=== PATIENT | male | born 1950 | race Caucasian/White ===

== ENCOUNTER 2021-08-08 10:30 | Inpatient (IN) | payer MEDICARE ==
[~2021-08-08] VITALS: Ht 167.6 cm; Wt 59.0 kg
[2021-08-08] MEDS ORDERED: VITA1TAB19 PO (13:52)
[2021-08-08] MEDS ORDERED: MULT-121 PO (13:52)
[2021-08-08] MEDS ORDERED: CITA40TA6 PO (13:52)
[2021-08-08] MEDS ORDERED: MEMA10TA PO (13:52)
[2021-08-08] MEDS ORDERED: MAGNESIUM HYDROXIDE 2,400 MG/30 ML ORAL.SUSP. PO PRN (16:30)
[2021-08-08] MEDS ORDERED: MAG HYDROX/AL HYDROX/SIMETH 30 ML ORAL.SUSP PO PRN (16:30)
[2021-08-08] MEDS ORDERED: ACETAMINOPHEN 325 MG TABLET PO PRN (16:30)
[2021-08-08] MEDS ORDERED: METHYL SALICYLATE/MENTHOL TOPICAL OINTMENT 57GM TUBE. TP PRN (16:30)
--- NOTE | 2021-08-08 16:38 | NUR ---
Admission Note with Justification for Admission to [facility] Patient admitted to [facility] for protective oversight for emergency stabilization of acute psychiatric crisis. Pt admitted from: Home Mode of arrival: POV Accompanied By: Family Precipitating behaviors that initiated intake and admission: Patient admitted from home for reportedly thinking his family are strangers, threatening family with a diamond setter knife and gun to get them to leave, being paranoid, not bathing, and being delusional. Description of failure of out patient attempts at stabilization in previous setting list behavior and medication trials: Patient seen by psychiatry and neurology on outpatient basis with medication changes and home health. Behaviors and assessment findings upon admission: Patient mildly anxious, cooperative, and pleasantly confused. He is very hard of hearing without hearing aids which he does not have. Patient unable to recall his year and is disoriented to place and day/date. He denies pain or shortness of breath. Plan: Admit for protective oversight for adjustment and stabilization of medications, behaviors and mood. Intense treatment regimen including groups, medication adjustments, therapy, consistent regimen for ADL's, self care, and sleep hygiene. Daily monitoring by Inpatient staff, Psychiatry, and Medical Physician.
[2021-08-08 16:41] VITALS: BP 131/74
[2021-08-08 17:44] LABS: BASO # 0.1 x10^3/uL (0.0-0.2); BASO % 1 % (0-3); EOS # 0.2 x10^3/uL (0.0-0.7); EOS % 2 % (0-3); HEMATOCRIT 40.9 % (39.0-53.0); HEMOGLOBIN 13.7 g/dL (13.0-17.5); LYMPH # 1.8 x10^3/uL (1.0-4.8); LYMPH % 18 % (24-48); MEAN CORPUSCULAR HEMOGLOBIN 31 pg (25-35); MEAN CORPUSCULAR HGB CONC 34 g/dL (31-37); MEAN CORPUSCULAR VOLUME 92 fL (79-100); MONO # 0.8 x10^3/uL (0.0-1.1); MONO % 8 % (0-9); NEUT # 7.1 x10^3uL (1.8-7.7); NEUT % 72 % (31-73); PLATELET COUNT 274 x10^3/uL (140-400); RED BLOOD COUNT 4.43 x10^6/uL (4.30-5.70); RED CELL DISTRIBUTION WIDTH 13.3 % (11.5-14.5); WHITE BLOOD COUNT 9.9 x10^3/uL (4.0-11.0)
[2021-08-08 17:55] LABS: ALBUMIN 3.8 g/dL (3.4-5.0); ALBUMIN/GLOBULIN RATIO 1.2 (1.0-1.7); CALCIUM 8.5 mg/dL (8.5-10.1); CREATININE 1.1 mg/dL (0.7-1.3); POTASSIUM 4.2 mmol/L (3.5-5.1); TOTAL BILIRUBIN 0.3 mg/dL (0.2-1.0); TOTAL PROTEIN 6.9 g/dL (6.4-8.2)
[2021-08-08] MEDS: MEMANTINE 10 MG TABLET. PO SCH (21:02)
--- NOTE | 2021-08-09 01:08 | NUR ---
Nursing Note The patient was located in his room and hallway for his assessment and medication pass. The patient was compliant with medications and took them whole. The patient was alert to name only. The patient was pleasant but disorganized during interactions. The patient required multiple redirections by staff due to entering other rooms than his own while wandering. The patient is currently sleeping in his room.
[2021-08-09 05:33] VITALS: BP 150/75
[2021-08-09] MEDS ORDERED: FLU VACC QUAD 21-22 (6MOS+) PF 0.5 ML SYRINGE. VAX IM ONE (08:00)
--- NOTE | 2021-08-09 08:30 | NUR ---
ACTIVITY THERAPY ASSESSMENT completed based on notes,observation and interview. Pt remained calm and pleasant during the entire assessment. Pt said that he enjoys eating good food, fishing, hunting, and reads lots of things. Pt was able to say his birthday but unable to recall the year he was born. Pt was not able to answer any other orientation questions. Pt reports that he is and has three or four children. Pt said that he is in good contact with them. Pt does not report any pain and can ambulate independently. Pt reports that he came from home prior to admission. Pt is mostly pleasantly confused and cooperative with staff. Pt wanders in the hallway but remains calm. Initial goal aimed to increase socialization and engagement. Pt will participate in at least three Activity Therapy sessions per week.
[2021-08-09] MEDS: VITAMIN B COMPLEX CAPSULE. PO SCH (08:42)
[2021-08-09] MEDS: CITALOPRAM 20 MG TABLET. PO SCH (08:42)
[2021-08-09] MEDS: MULTIVITAMIN with MINERAL TABLET. PO SCH (08:42)
[2021-08-09] MEDS: MEMANTINE 10 MG TABLET. PO SCH ×2 (08:43→21:38)
[2021-08-09] MEDS ORDERED: IOHEXOL 350 MG/ML 100 ML VIAL. ONE (10:32)
[2021-08-09] MEDS: QUEtiapine 25 MG TABLET. PO PRN ×2 (10:44→16:38)
--- NOTE | 2021-08-09 10:45 | NUR ---
Patient was restless and wandering this morning. After meeting another patient, he became more restless, agitated, and exit seeking. He is door checking with the other patient, both are yelling repeatedly to let them out and open the door. PRN medication provided per eMAR, will continue to monitor and report to MD.
--- NOTE | 2021-08-09 12:00 | NUR ---
Initial treatment team: Pt was admitted last night for threatening his family, paranoia and delusional thinking. Pt is eating 75% of his meals and slept 6.25 hours. Since admission, pt has been mildly anxious, cooperative, exit-seeking and confused. Pt is alert and oriented to himself adn has noted to have tremors in both upper and lower extremities; neurology will be consulted for this. Pt is difficult to redirect and has declined any offers for activities. Pt received his flu shot this morning and will receive PRN orders for Seroquel 25mg po PRN q 6 hours. It is noted that the family will need assistance in finding placement.
--- NOTE | 2021-08-09 12:29 | NUR ---
WEEKLY ACTIVITY THERAPY NOTE Date of Admission:08/08/21 Date of AT Assessment: TBD Precipitating behaviors that initiated intake and admission:Patient admitted from home for reportedly thinking his family are strangers, threatening family with a asphalt mixing machine operator knife and gun to get them to leave, being paranoid, not bathing, and being delusional. Goal aimed: TBD Initial Goal: TBD Weekly progress towards goal: NA Group participation level: NA Weekly highlights: arrived on [facility] Behaviors observed: Plan: meet/assess pt Beneficial adaptations: TBD
[2021-08-09 13:18] LABS: BACTERIA,URINE 0 /HPF (0-FEW); BILIRUBIN,URINE NEG (NEG); CLARITY,URINE CLEAR; COLOR,URINE YELLOW; GLUCOSE,URINE NEG (NEG); NITRITE,URINE NEG (NEG); RBC,URINE 0 /HPF (0-2); WBC,URINE 0 /HPF (0-4)
--- NOTE | 2021-08-09 15:09 | NUR ---
Lab called and stated patient is positive for SARS-CoV-2. Patient placed in isolation hallway due to mental condition and inability to self-isolate in his room. MD notified, orders for seclusion related to medical condition obtained. Nursing electrical assembly supervisor contacted; patient will be isolated while awaiting the results of two follow up tests. If either test is positive, patient will be transferred to [address] [place] [address]. If both tests are negative, patient will be out of isolation. Patient informed of plan of care and is in agreement. Will continue to monitor and report to oncoming shift.
[2021-08-09 15:50] VITALS: BP 126/74
--- NOTE | 2021-08-09 16:38 | NUR ---
Patient is restless, wandering, exit seeking, and door checking. He is not responding to verbal re-direction or reminders that he is in isolation. PRN medication provided per eMAR, patient continues on isolation precautions. Will continue to monitor.
[2021-08-09 17:46] LABS: THYROID STIM HORMONE (TSH) 2.52 uIU/mL (0.358-3.740)
[2021-08-09] MEDS ORDERED: QUEtiapine 50 MG TABLET. PO ONE (22:00)
[2021-08-09 22:12] LABS: THYROXINE 7.4 ug/dL (4.5-12.0)
--- NOTE | 2021-08-09 23:12 | NUR ---
Nursing Not The patient was located in the quiet latif for medical seclusion due to positive covid 19 test. The patient has been restless and at times difficult to redirect. The patient was compliant with his medication and took it whole. Dr. Chen was called related to restlessness and a x1 order for 50mg seroquel was given. The patient is currently sleeping in the quiet room.
--- NOTE | 2021-08-09 23:16 | CONS ---
DATE OF CONSULTATION: 08/09/2021 ATTENDING PHYSICIAN: Dr. Zhang and Dr. Reeves. We are asked to see the patient for medical consultation. HISTORY OF PRESENT ILLNESS: The patient is a 71-year-old gentleman who lives in [place], [place]. His primary care provider is Ricardo Link, a nurse practitioner, who used to work with me 15 years ago in [place]. He is demented. He has agitation. He was sent here because he was threatening his family, got a supervisor rides knife. He also got a gun threatening to get out. He is very paranoid. I could not get much history from him, much of the history is obtained from the chart. He has a longstanding history of Alzheimer's dementia, anxiety, enlarged prostate and degenerative arthritis. ALLERGIES: He has no known drug allergies. SCHEDULED MEDICATIONS: Includes citalopram, Namenda, multivitamin, and vitamin B. SOCIAL HISTORY: Unclear about smoking or drinking history. FAMILY HISTORY: Unobtainable. REVIEW OF SYSTEMS: Unobtainable due to the patient's confusion. PHYSICAL EXAMINATION: GENERAL: When I saw him, this is a pleasant gentleman who was very confused. He was not agitated. He was rather cooperative. VITAL SIGNS: Initial vital signs showed a blood pressure of 131/74, pulse was 84 and regular. He was afebrile, oxygen saturation 96% on room air. HEENT: Head is without trauma. Pupils are reactive. Sclerae are nonicteric. The oropharynx is clear. NECK: Supple, no bruits. LUNGS: Clear. CARDIOVASCULAR: Showed regular heart tones. ABDOMEN: Soft. EXTREMITIES: Without edema. NEUROLOGIC FINDINGS: Focally intact. Speech was fluent. He had no deficits. His memory is quite poor and he could not answer simple questions. PERTINENT LABORATORY STUDIES: Admission hemoglobin was 13.7 g/dL with a white count of 9900. Electrolytes all within normal range. Nonfasting blood sugar 114. Transaminases are normal. ASSESSMENT: 1. This 71-year-old gentleman has profound Alzheimer's dementia with behavioral issues of agitation and paranoia. 2. History of enlarged prostate. 3. Underlying anxiety. RECOMMENDATIONS: 1. I have reviewed his medication. He is stable from a medical standpoint. 2. I would recommend we continue his limited medication as scheduled. 3. Family requested a DNR status while in the facility. I took the liberty of signing that and placed it on the chart. Thank you again for asking me to see this patient for medical consultation. We are happy to follow along. SANDRITA DR: Damaris TID: [id number] CC: Dr. Reeves
[2021-08-10 00:06] LABS: HEMOGLOBIN A1C 5.5 % (4.8-5.6)
[2021-08-10] MEDS: QUEtiapine 25 MG TABLET. PO PRN ×2 (01:41→20:15)
--- NOTE | 2021-08-10 02:24 | PSYEV ---
DATE OF SERVICE: 08/09/2021 PSYCHIATRIC EVALUATION REASON FOR ADMISSION: This 71-year-old male was admitted from home at the request of the family because he has been threatening the family with a information systems auditor knife and gun to get them to leave, also paranoid, refusing ADLs, not bathing. The patient also not trusting any of the family members and thinks they are all strangers. CHIEF COMPLAINT: "I don't know where I am. I don't understand. I am looking for my family." HISTORY OF PRESENT ILLNESS: The patient since admission was withdrawn, pacing, increased confusion. The patient also has significant hearing loss. The patient is having difficulty with comprehension. The patient also has significant cognitive deficits. The patient apparently has a potential to act violently because of her delusional thinking. The patient is able to walk, not having any major medical issues at this point. The patient did not have any falls. The patient has been diagnosed with dementia and he was accompanied by daughter and ex-, Lincoln Shukla. Apparently she is the garage door technician for him. The patient has been having problems with memory, it is getting worse gradually, also increased confusion. The patient also is exhibiting bizarre behavior, lately physically aggressive towards his ex-, also angry, significant mood swings. The patient is also physical towards the family members, trying to grab his caregiver's arm and pushed her. The patient has been tried on outpatient treatment, was seen by the psychiatrist, also neurologist and has been medicated, but no improvement. The patient also wandered off twice. They have to call 911 and apparently lost in the morgan. PAST MEDICAL HISTORY: Enlarged prostate, hernia repair, knee surgery. The patient is tested negative for COVID-19 on admission and the repeat on arrival to the unit ____ positive. Currently, he is on isolation and the test to be repeated. CURRENT MEDICATIONS: Currently on multivitamins, vitamin B complex, citalopram 40 mg daily, Namenda 10 mg twice a day and Tylenol p.r.n. The patient was started on Seroquel 25 mg q. 6 hours p.r.n. LABORATORY DATA: The patient's lab reviewed, which were all within normal range except for glucose level of 114. The patient's urinalysis was within normal limits. PSYCHOSOCIAL HISTORY: The patient was living at home. Apparently, his ex-, his caregiver and her daughter also supportive of his treatment. No history of alcohol or substance abuse and no history of any physical, emotional, or sexual abuse in the past. MENTAL STATUS EXAMINATION: The patient appeared to be of his stated age, casually dressed, thin build, able to make eye contact. He was also confused, somewhat bewildered. He did not know where he is and what is going to happen. The patient is also hard of hearing. Speech clear, monotone, decreased rate and rhythm. He was able to read a full paragraph without any difficulty with the speech. His affect and mood showed he is anxious, tense, worried, also suspicious and paranoid. The patient is not comprehending very well. The patient is also very confused. Recent episodes indicate that he is very delusional and paranoid and also threatening the family members not knowing they are the family members, thought they were strangers trying to make them leave with a knife and a gun. The patient denies feeling depressed. No suicidal or homicidal thoughts. The patient is having difficulty orienting himself to surroundings. His memory is not testable at this time. The patient's judgment is impaired. Insight limited. ADMITTING DIAGNOSES: AXIS I: 1. Major neurocognitive disorder, most likely Alzheimer versus vascular with the delusions and behavior problems. 2. Generalized anxiety disorder. 3. Impulse control disorder, unspecified. AXIS II: None. AXIS III: See the list above. STRENGTH: In good health. His gait is normal. No fall risk, able to communicate. WEAKNESSES: The patient is currently confused, having significant memory problems and also underlying psychosis. INITIAL TREATMENT PLAN: The patient will be involved in the program including individual therapy, group therapy, activity therapy, waiting for the COVID test and if positive, he will be transferred to the medical floor. The patient's medications to be evaluated. The patient will participate in the treatment once he is out of the isolation. ESTIMATED LENGTH OF STAY: Seven to ten days. CLAIRE OLIVER: Jigar TID: [id number]
[2021-08-10 05:53] VITALS: BP_SYST 69
[2021-08-10] MEDS: CITALOPRAM 20 MG TABLET. PO SCH (08:40)
[2021-08-10] MEDS: VITAMIN B COMPLEX CAPSULE. PO SCH (08:40)
[2021-08-10] MEDS: MULTIVITAMIN with MINERAL TABLET. PO SCH (08:40)
[2021-08-10] MEDS: MEMANTINE 10 MG TABLET. PO SCH ×2 (08:41→20:15)
--- NOTE | 2021-08-10 09:16 | NUR ---
Pt sitting in hallway eating breakfast. He is pleasant and cooperative with meds and assessment. He was able to state name only.
--- NOTE | 2021-08-10 14:11 | PN ---
DATE: 08/10/2021 SUBJECTIVE: The patient was seen today, met with the staff, chart reviewed. Also, covering for Dr. Zhang. The patient's behavior continues to worsen. He is increasingly confused, withdrawn, having difficulty orienting to surroundings, exit-seeking behaviors and also repeatedly yelling. The patient tested again negative, but still in isolation. OBSERVATION: GENERAL: Slept about only 1 hour last night. The patient's appetite decreased. LABORATORY DATA: The patient's lab reviewed. The patient's LDL 102, HDL 61. Iron 36, TIBC 302. Iron saturation 12. The patient's glucose level was 114. The patient's urinalysis was within normal limits. CURRENT MEDICATIONS: Seroquel 25 mg q. 6 hours p.r.n., citalopram 40 mg daily, Namenda 10 mg twice a day. The patient also received Seroquel 50 mg 1 dose as needed yesterday for behavior problems. The patient is on continued observation. Continue to evaluate and adjust the medication accordingly. ASSESSMENT: Major neurocognitive disorder, most likely Alzheimer's with behavioral disturbances. PLAN: Continue with the current treatment plan. LENGTH OF STAY: 7-[address]: Jigar TID: [id number]
[2021-08-10 15:43] VITALS: BP 114/63
--- NOTE | 2021-08-10 23:22 | NUR ---
Nursing Note The patient remains in the quiet latif for medication isolation. The patient has been restless pulling on doors and pacing the latif. The patient was given PRN Seroquel with HS medications. The patient was compliant with medications and took them whole. The patient is currently sleeping in the quiet latif.
[2021-08-11 05:50] VITALS: BP 149/78
[2021-08-11] MEDS: MEMANTINE 10 MG TABLET. PO SCH ×2 (08:48→20:36)
[2021-08-11] MEDS: MULTIVITAMIN with MINERAL TABLET. PO SCH (08:48)
[2021-08-11] MEDS: CITALOPRAM 20 MG TABLET. PO SCH (08:48)
[2021-08-11] MEDS: VITAMIN B COMPLEX CAPSULE. PO SCH (08:48)
[2021-08-11] MEDS: QUEtiapine 25 MG TABLET. PO PRN ×2 (15:03→20:36)
--- NOTE | 2021-08-11 15:08 | NUR ---
Patient is exit seeking, door checking, and hallucinating. He stated that he was tapping on the window because there are bees on the painting. PRN medication provided per eMAR, will continue to monitor and report to MD during rounds.
[2021-08-11 15:46] VITALS: BP 115/67
--- NOTE | 2021-08-11 20:56 | RAD ---
CT Head W/O Contrast: History: Reason: Increased confusion / Spl. Instructions: / History: Comparison: none Axial images were obtained without contrast. There is moderate diffuse atrophy. There is ventriculomegaly. There is encephalomalacia in the right temporal lobe. There is no mass effect, extraaxial fluid collections or gross bleed. Mild, patchy pe riventricular and subcortical white matter hypoattenuation is seen. There is no focal loss of briceno-w venkat matter distinction to suggest acute ischemia, i.e. stroke. Impression: 1. Moderate diffuse atrophy. 2. Ventriculomegaly is felt to be secondary to atrophy. 3. 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 4. No acute findings. End of impression PQRS Compliance Statement: One or more of the following individualized dose reduction techniques were utilized for this examinat ion: 1. Automated exposure control 2. Adjustment of the mA and/or kV according to patient size 3. Use of iterative reconstruction technique Electronically signed by: Sin Burns III, MD (08/11/2021 8:53 PM) [facility]
--- NOTE | 2021-08-11 21:25 | PN ---
DATE: 08/11/2021 SUBJECTIVE: The patient was seen today, met with the staff. Chart was reviewed and also covering for Dr. Zhang. The patient's behavior remains the same. He is confused, pacing constantly, considerable difficulty processing information. Also, some hearing loss. The patient is not able to give much information. The patient is exhibiting severe cognitive deficits, mostly for short-term and long-term memory. The patient also needing assistance with ADLs. The patient is able to ambulate. No recent falls. OBSERVATION: VITAL SIGNS: Temperature 97.5, blood pressure 149/28, pulse 71, respirations 16. GENERAL: Slept about 6 hours last night. LABORATORY DATA: The patient's lab reviewed. CURRENT MEDICATIONS: The patient's current medications include Seroquel 25 mg q. 6 hours p.r.n., citalopram 40 mg daily, Namenda 10 mg twice a day. The patient's COVID test was negative. The patient continues to have visual hallucinations. Complained of seeing bees on the windows. ASSESSMENT: Major neurocognitive disorder, most likely Alzheimer's with behavioral disturbances. PLAN: To continue with treatment. LENGTH OF STAY: Seven to ten [address]. CLA[address] DR: Jigar TID: [id number]
[2021-08-11] MEDS ORDERED: QUEtiapine 50 MG TABLET. PO ONE (22:30)
--- NOTE | 2021-08-11 23:24 | NUR ---
Pt located in hallway wandering unit. Pt A/O to self only and responds in word salad. Compliant with HS medications and PRN Seroquel. Pt continued to be restless, door checking, exit seeking. Dr. Reeves paged and received order for 50mg PRN Seroquel x1. Pt refused pill and spit it back at nurse. Medication crushed and syringed. Staff x3 assisted as pt became extremely agitated and combative. Pt currently in [place] continuing to bang on doors and rattle doorknobs. Will continue to monitor.
--- NOTE | 2021-08-11 23:27 | PN ---
DATE: 08/11/2021 SUBJECTIVE: The patient denies any new medical or neurological complaints. There is no history of head injuries or falls. He denies headaches. OBJECTIVE: GENERAL: Well-developed, well-nourished, male in no acute distress. VITAL SIGNS: Blood pressure 150/67, respiratory rate 18, pulse is 90, temperature 97.9, oxygen saturation 96% on room air. HEENT: Normocephalic, atraumatic. Otherwise unremarkable. NECK: Supple, negative for carotid bruit, lymphadenopathy or thyromegaly. LUNGS: Clear to A and P. CARDIOVASCULAR: Regular rate and rhythm, normal S1, S2. There is no S3, S4 or murmur. ABDOMEN: Soft. Bowel sounds positive. EXTREMITIES: Negative for cyanosis, clubbing or edema. NEUROLOGIC: Mental status: The patient is alert, but disoriented to time and place. Speech is fluent. There is no language dysfunction. Memory, judgment and abstracting thinking are poor. The patient denies hallucination or delusion. Cranial nerves are intact except for bilateral hearing loss. No focal motor or sensory deficit. Deep tendon reflexes were symmetric and hypoactive with absent Achilles responses. Gait: The patient walks without assistance. LABORATORY DATA: COVID-19 PCR is not detected and RPR is nonreactive. IMPRESSION: 1. Dementia, probably of Alzheimer type versus vascular. 2. Intermittent tremor, none present at this time. 3. Intermittent behavior disturbance and generalized anxiety disorders. RECOMMENDATIONS: Continue with current medical and psychiatric care. The patient is neurologically stable. TORRES DR: Ming TID: [id number]
--- NOTE | 2021-08-12 00:01 | CONS ---
DATE OF CONSULTATION: 08/09/2021 NEUROLOGY CONSULT REFERRING PHYSICIAN: Dr. Chen. REASON FOR CONSULTATION: Intermittent tremor of the upper extremities. HISTORY OF PRESENT ILLNESS: This is a 71-year-old right-handed male who was admitted on 08/08/2021 on account of aggressive behavior and paranoid. He refused adult daily living activities as taking a bath as he does not trust any family members. Neuro consult was requested because the patient was found to have intermittent tremor of the upper extremities. The patient appeared to have dementia consistent with his behavior on the floor. He has been withdrawing, pacing and being confused. Apparently, he has significant hearing loss and slowly progressive mental status changes. Occasionally, he becomes violent. According to his family, the patient has been more demanding and more confused in the last few months. According to the nursing staff, the patient was found to have intermittent tremor of the upper extremities. The patient denies any recent falls or head injuries. Due to his violent behavior at home and not taking care of himself, EMS was activated and transferred the patient to the Emergency Room for further evaluation. PAST MEDICAL HISTORY: Significant for enlarged prostate, recently the patient was tested positive for COVID-19 on admission. Other medical problems include depressions and dementia. PAST SURGICAL HISTORY: Positive for hernia repair, knee surgery. FAMILY HISTORY: Not obtainable. CURRENT MEDICATIONS: Include Seroquel 25 mg every 6 hours p.r.n., vitamin B complex, multivitamins, citalopram 40 mg daily, memantine 10 mg b.i.d. and Tylenol p.r.n. for pain. ALLERGIES: None known. SOCIAL HISTORY: The patient lives at home. There is no history of smoking, alcohol drinking or illicit drug use. REVIEW OF SYSTEMS: A 10-point review of system was performed as mentioned above in history of present illness, otherwise unremarkable. PHYSICAL EXAMINATION: GENERAL: Well-developed, well-nourished male in no acute distress. VITAL SIGNS: Blood pressure 126/74, respiratory rate 20, pulse is 88 and regular, temperature 97.7, oxygen saturation 97% on room air. HEENT: Normocephalic, atraumatic. Otherwise unremarkable. NECK: Supple, negative for carotid bruit, lymphadenopathy or thyromegaly. LUNGS: Clear to A and P. CARDIOVASCULAR: Regular rate and rhythm. Normal S1, S2. There is no S3, S4 or murmur. ABDOMEN: Soft. Bowel sounds positive. EXTREMITIES: Negative for cyanosis, clubbing or pedal edema. NEUROLOGIC: Mental status: The patient is alert to himself. He is disoriented to time and place. The speech is fluent. Memory, judgment and abstracting thinking are poor consistent with his diagnosis of dementia. Cranial Nerves: Visual morgan appeared to be intact. Pupils are equal and reactive. Extraocular movements are intact without nystagmus. There is no facial motor or sensory deficits. Hearing appeared to diminished bilaterally. The palate is elevated symmetrically. Sternocleidomastoid muscles are powerful bilaterally. The patient shrugs his shoulders symmetrically, protrudes his tongue in the midline without fasciculation or atrophy. Motor Exam: No focal muscle bulk wasting. The tone is normal. The strength is 4/5 throughout. Sensory examination revealed a normal pinprick and light touch senses throughout. Deep tendon reflexes were symmetric and hypoactive without pathology responses. Gait: The patient walked by himself without assistance. DIAGNOSTIC DATA: A head CT scan revealed a moderate diffuse atrophy with enlarged ventricle with right temporal lobe infarct; otherwise, no acute intracranial process. LABORATORY DATA: CBC revealed white blood cells of 9.9 thousand, hemoglobin 13.7, hematocrit 40.9, platelet count 274,000. Chemistry revealed a sodium 145, potassium 4.2, chloride 106, CO2 of 30, BUN 14, creatinine 1.1, glucose 114. A1c is normal at 5.5. Iron is low at 36. Liver enzymes are normal. Lipid profile revealed LDL at one point at 102 with high HDL at 61. Normal vitamin B12, but low vitamin D at 26.1 and normal thyroid profile. Urinalysis negative for urinary tract infections. Serology testing including COVID-19 PCR is pending. IMPRESSION: 1. Dementia, probably of Alzheimer type versus vascular type. 2. Intermittent tremor, not present at this time. 3. Generalized anxiety disorder, paranoid and behavior disturbances. RECOMMENDATIONS: We will continue with current medical and psychiatric care and continue with current medications. KATHY DR: Ming TID: [id number]
[2021-08-12 05:47] VITALS: BP 133/66
[2021-08-12] MEDS: VITAMIN B COMPLEX CAPSULE. PO SCH (07:39)
[2021-08-12] MEDS: MULTIVITAMIN with MINERAL TABLET. PO SCH (07:39)
[2021-08-12] MEDS: CITALOPRAM 20 MG TABLET. PO SCH (07:39)
[2021-08-12] MEDS: MEMANTINE 10 MG TABLET. PO SCH ×2 (07:39→19:37)
--- NOTE | 2021-08-12 15:49 | NUR ---
Joshua was active in the admit hallway today. He sat in the latif, paced at times, and performed door checking throughout many portions of the day. He is very strong and can shake the doors so hard it makes other doors vibrate when he is attempting to break them open. He is very [place] and requires most of each conversation to be repeated for him to hear and/or process it. He is confused to place and time but is able to share his name. He was unable to recall my name in less that 3 minutes. He has been pleasant on contact, cooperative with medications and assessments, and has no recognizable medical concerns. He is active in his own ADL care and eats 100% of his meals. The patient is unable to share his thoughts without drifting from the conversation. There were no recognizable behaviors that would indicate hallucinations. Patient is sleeping 6-8 hours each night.
[2021-08-12 15:59] VITALS: BP 125/63
[2021-08-12] MEDS: QUEtiapine 25 MG TABLET. PO PRN (19:37)
--- NOTE | 2021-08-12 21:32 | PN ---
DATE: 08/12/2021 SUBJECTIVE: The patient was seen today, met with the staff, chart reviewed. Also, covering for Dr. Zhang. Staff reports increased behavior problems, exit-seeking behaviors, combative during treatment, refusing medications, also restless. The patient is confused most of the time, significant problems with comprehension and reasoning, also exhibiting impulse control. The patient also showing some decreased psychomotor activity and blank facial expression, but no involuntary movements. The patient is also having visual hallucinations. OBSERVATION: VITAL SIGNS: Temperature 97.2, blood pressure 133/66, pulse 72, respirations 16, O2 sat 97%. GENERAL: Slept about 4 hours last night. The patient's appetite is fair. The patient is needing supervision because of his increased confusion and difficult to redirect at times. CURRENT MEDICATIONS: Seroquel 25 mg q. 6 hours p.r.n., citalopram 40 mg daily, Namenda 10 mg twice a day. ASSESSMENT: Major neurocognitive disorder, most likely Alzheimer's with behavior disturbances. PLAN: To continue with treatment. The patient will continue on the Seroquel p.r.n. Apparently, staff called last night with regard to his behavior getting more aggressive and physical towards the staff. LENGTH OF STAY: 7 to [address]: Jigar TID: [id number]
[2021-08-12] MEDS ORDERED: QUEtiapine 50 MG TABLET. PO ONE (22:30)
--- NOTE | 2021-08-12 23:30 | NUR ---
Pt highly restless on the unit, wandering and door checking. Pt very disorganized and responds in word salad. Compliant with HS medications. Later in the evening, pt continued to be restless shaking the door handles and door checking. Dr. Leandro becerra. 50mg Seroquel x1 administered without difficulty. Pt currently awake and wandering hallway. Will continue to monitor.
[2021-08-13 05:31] VITALS: BP 131/78
[2021-08-13] MEDS: VITAMIN B COMPLEX CAPSULE. PO SCH (08:35)
[2021-08-13] MEDS: MULTIVITAMIN with MINERAL TABLET. PO SCH (08:36)
[2021-08-13] MEDS: MEMANTINE 10 MG TABLET. PO SCH ×2 (08:36→19:54)
[2021-08-13] MEDS: CITALOPRAM 20 MG TABLET. PO SCH (08:36)
--- NOTE | 2021-08-13 12:25 | PN ---
DATE: 08/13/2021 SUBJECTIVE: The patient was seen today, met with the staff, chart reviewed. Also, covering for Dr. Zhang. Staff reports that he is medication compliant, confused, exit-seeking behaviors and also disorganized thinking, unable to hold conversation and also has hearing loss. OBSERVATION: VITAL SIGNS: Temperature 97.5, blood pressure 131/78, pulse 67, respirations 16, O2 sat 96%. GENERAL: Slept about 5 hours last night. The patient's appetite is fair. The patient is not having any physical complaints. ASSESSMENT: Major neurocognitive disorder, most likely Alzheimer's, with behavior disturbances. PLAN: To continue with treatment. The patient is also on Seroquel p.r.n. The patient will continue on citalopram 40 mg daily and Namenda 10 mg twice a day. Continue with the treatment. Continue to observe. Adjust the medication accordingly. LENGTH OF STAY: 7-[address]: Jigar TID: [id number]
[2021-08-13 15:39] VITALS: BP 113/67
--- NOTE | 2021-08-13 17:46 | NUR ---
Patient has been withdrawn to his room for the majority of this shift. After dinner he has been wandering, exit-seeking, and door checking. Will continue to monitor and report to oncoming shift.
[2021-08-13] MEDS: QUEtiapine 25 MG TABLET. PO PRN (19:55)
[2021-08-13] MEDS ORDERED: QUEtiapine 25 MG TABLET. PO ONE (22:45)
--- NOTE | 2021-08-13 23:51 | NUR ---
Pt has been restless and wandering hallway all evening. Exit seeking and door checking. Compliant with whole medications. PRN Seroquel administered with HS medications. Pt continued to pace hallway and door check. Dr. Leandro becerra. Received orders for Seroquel 25mg x1. If not effective, may repeat dose x1. PRN administered. Pt currently awake wandering hallway. Will continue to monitor.
--- NOTE | 2021-08-14 00:05 | PN ---
SUBJECTIVE: The patient denies any new medical or neurological complaints. OBJECTIVE: GENERAL: Well-developed, well-nourished man in no acute distress. VITAL SIGNS: Blood pressure 131/78, respiratory rate 16, pulse is 67 and regular, temperature 97.5, oxygen saturation 96% on room air. NECK: Supple. Negative for carotid bruit, lymphadenopathy or thyromegaly. LUNGS: Clear to A and P. CARDIOVASCULAR: Regular rhythm. Normal S1, S2. There is no S3, S4 or murmur. ABDOMEN: Soft. Bowel sounds positive. EXTREMITIES: Negative for cyanosis, clubbing or edema. NEUROLOGIC: Mental status: The patient is awake, but disoriented to time and place. The speech is slow. The patient has delayed communication probably due to bilateral severe hearing loss. Memory, judgment and abstracting thinkings are consistent with underlying diagnosis of dementia. Cranial nerves are intact, except for bilateral hearing loss. No focal motor or sensory deficit. Deep tendon reflexes were asymmetric and hypoactive with absent Achilles responses. Gait: The patient walked without assistance. No tremor has been noted today. IMPRESSION: 1. Dementia of Alzheimer's type versus vascular type. 2. Intermittent tremor, not present at this time, probably due to underlying anxiety or medication side effects. 3. Generalized anxiety disorders and intermittent behavior disturbances. RECOMMENDATIONS: Continue with current medical and psychiatric care. NEO DR: Ming TID: [id number]
[2021-08-14] MEDS ORDERED: QUEtiapine 25 MG TABLET. PO ONE (00:30)
[2021-08-14 06:03] VITALS: BP 112/65
[2021-08-14] MEDS: CITALOPRAM 20 MG TABLET. PO SCH (09:14)
[2021-08-14] MEDS: MEMANTINE 10 MG TABLET. PO SCH ×2 (09:14→20:39)
[2021-08-14] MEDS: MULTIVITAMIN with MINERAL TABLET. PO SCH (09:14)
[2021-08-14] MEDS: VITAMIN B COMPLEX CAPSULE. PO SCH (09:14)
[2021-08-14 16:15] VITALS: BP 121/68
[2021-08-14] MEDS: MIRTAZAPINE 15 MG TABLET PO SCH (20:39)
[2021-08-14] MEDS: QUEtiapine 25 MG TABLET. PO PRN (21:45)
--- NOTE | 2021-08-15 03:22 | PN ---
DATE: 08/14/2021 SUBJECTIVE: The patient was seen today, met with the staff, chart reviewed. Also, covering for Dr. Zhang. The patient continues to have behavioral problems. Slept only about 3 hours last night. The patient is constantly pacing, still confused, exit-seeking behaviors, and also intrusive and not able to follow directions. OBSERVATION: VITAL SIGNS: Temperature 97.5, blood pressure 112/65, pulse 64, respirations 18, O2 sat 96%. Slept about 2.5 hours last night. GENERAL: The patient's appetite is fair. The patient is able to ambulate fairly well. No falls. CURRENT MEDICATIONS: Include Seroquel 25 mg q. 6 hours p.r.n., citalopram 40 mg daily, Namenda 10 mg b.i.d. The patient was given p.r.n. Seroquel twice yesterday because of his agitation and inability to sleep. ASSESSMENT: Major neurocognitive disorder, most likely Alzheimer's with behavior problems. PLAN: The patient's Celexa to be decreased to 30 mg at night and started on Remeron 15 mg at night. LENGTH OF STAY: 7-[address]: Jigar TID: [id number]
[2021-08-15 06:04] VITALS: BP 145/70
[2021-08-15] MEDS: MULTIVITAMIN with MINERAL TABLET. PO SCH (08:42)
[2021-08-15] MEDS: CITALOPRAM 20 MG TABLET. PO SCH (08:42)
[2021-08-15] MEDS: VITAMIN B COMPLEX CAPSULE. PO SCH (08:42)
[2021-08-15] MEDS: MEMANTINE 10 MG TABLET. PO SCH ×2 (08:42→20:24)
[2021-08-15 16:00] VITALS: BP 139/72
--- NOTE | 2021-08-15 17:43 | NUR ---
Patient has been cooperative, disorganized, wandering, and door-checking throughout this shift. He is intrusive with other patients at times and has difficulty understanding and following directions. Will continue to monitor and report to oncoming shift.
[2021-08-15] MEDS: QUEtiapine 25 MG TABLET. PO PRN (18:40)
[2021-08-15] MEDS: MIRTAZAPINE 15 MG TABLET PO SCH (20:23)
--- NOTE | 2021-08-15 23:24 | PN ---
DATE: 08/15/2021 SUBJECTIVE: The patient was seen today, met with the staff, chart reviewed. Also, covering for Dr. Zhang. The patient's behavior continues to fluctuate. He tends to wander, is a lot restless, checking doors, exit-seeking behaviors and disorganized thinking. The patient also has problems with his executive functioning. The patient's gait is steady. The patient has no awareness of his surroundings. OBJECTIVE: VITAL SIGNS: Temperature 97.4, blood pressure 145/70, pulse 90, respirations 18, O2 sat 95%. GENERAL: Slept about 4 hours last night. The patient's appetite is fair. LABORATORY DATA: The patient's labs reviewed. CURRENT MEDICATIONS: The patient's current medications include Celexa 30 mg daily, Namenda 10 mg twice a day, Seroquel 25 mg at bedtime p.o., Remeron 15 mg at night. ASSESSMENT: Major neurocognitive disorder with psychotic symptoms. PLAN: To continue with treatment. LENGTH OF STAY: 7-[address]: Jigar TID: [id number]
--- NOTE | 2021-08-16 03:05 | NUR ---
Nursing Note The patient was located in the hallway and his room for his assessment and medication pass. The patient was disorganized but pleasant during interactions. The patient took his medication floated in pudding. The patient was alert to self only. The patient required redirections several times throughout the night due to entering other patients rooms. The patient was given PRN Seroquel with HS medication per PRN order. The patient was moved to the day room later in the night due to wandering and remained there with staff until he was ready to go to sleep. The patient is currently sleeping in his room.
[2021-08-16 06:04] VITALS: BP 154/80
[2021-08-16] MEDS: MEMANTINE 10 MG TABLET. PO SCH ×2 (08:22→19:53)
[2021-08-16] MEDS: CITALOPRAM 20 MG TABLET. PO SCH (08:23)
--- NOTE | 2021-08-16 08:50 | NUR ---
Pt confused and disorganized, A&O to self only. Absent of SI/HI behaviors, does not appear to be distracted or disturbed by possible VH/AH. PAINAD score is 0. He is compliant with medications crushed and mixed into pudding. He completed all of his breakfast and appears to have an adequate appetite. Plan of care continues, will pass to next shift.
--- NOTE | 2021-08-16 11:45 | NUR ---
JOSEFINA received call from pt DPOA/ex-, Irma, as she heard from the health dept that pt received a positive Covid test on 08/09. JOSEFINA informed Irma that pt did receive a positive test; however, he was retested 24 hours later and the test came back as negative. Pt has received two other test since and appears to have negative results. Irma appeared to be relieved and thanked JOSEFINA for letting her know. Irma asked to speak to pt prior to lunch to see if he would be willing to speak with her. "I don't he will even know who I am but I want to try". JOSEFINA will continue to keep Irma updated.
--- NOTE | 2021-08-16 11:57 | NUR ---
WEEKLY ACTIVITY THERAPY NOTE Date of Admission:08/08/21 Date of AT Assessment: 08/09 Precipitating behaviors that initiated intake and admission:Patient admitted from home for reportedly thinking his family are strangers, threatening family with a executive marketing assistant knife and gun to get them to leave, being paranoid, not bathing, and being delusional. Goal aimed: increase socialization and engagement Initial Goal: Pt will participate in at least three Activity Therapy sessions per week Weekly progress towards goal: on admit latif Group participation level: NA Weekly highlights: move to group therapy side 08/15 Behaviors observed: Plan: goal evaluation begins next week Beneficial adaptations:
[2021-08-16] MEDS: MULTIVITAMIN with MINERAL TABLET. PO SCH (12:10)
[2021-08-16] MEDS: VITAMIN B COMPLEX CAPSULE. PO SCH (12:10)
[2021-08-16 15:06] VITALS: BP 123/73
--- NOTE | 2021-08-16 16:06 | NUR ---
Treatment team update: Pt is eating 100% of meals and sleeping on average 4.25 hours per night. Pt continues to be restless, wanders and at times exit seeking. Pt did wander into a pt room; however was able to be redirected without trouble. Pt is disorganized and did receive a PRN before bed due to his restlessness. Pt is currently on Celexa 30mg daily, and Remeron 15mg for sleep. Pt is hoping to get pt into [facility]; however, SW has talked to her about expanding the search area as pt may not be accepted there due to behaviors and may need to look more towards a Memory Care unit. JOSEFINA will work with the family on placement.
[2021-08-16] MEDS: QUEtiapine 25 MG TABLET. PO PRN (19:53)
[2021-08-16] MEDS: MIRTAZAPINE 15 MG TABLET PO SCH (19:53)
--- NOTE | 2021-08-16 21:54 | PN ---
DATE: 08/15/2021 SUBJECTIVE: The patient denies any new medical or neurological complaints. OBJECTIVE: GENERAL: Well-developed, well-nourished male in no acute distress. VITAL SIGNS: Blood pressure 139/72, respiratory rate 20, pulse is 90 and regular, temperature is 97.1, oxygen saturation 97% on room air. HEENT: Normocephalic, atraumatic. Otherwise unremarkable. NECK: Supple, negative for carotid bruit, lymphadenopathy or thyromegaly. LUNGS: Clear to A and P. CARDIOVASCULAR: Regular rate and rhythm, normal S1, S2. There is no S3, S4 or murmur. ABDOMEN: Soft. Bowel sounds positive. EXTREMITIES: Negative for cyanosis, clubbing or pedal edema. NEUROLOGIC: Mental status: The patient is alert and oriented to himself. He is disoriented to time and person. Speech is more fluent. There is no language dysfunction, but he has delayed communications. Cranial nerves are intact. No focal motor or sensory deficits. Deep tendon reflexes were symmetric and hypoactive with absent Achilles responses. Gait: The patient walked without assistance. IMPRESSION: 1. Dementia of Alzheimer type versus vascular type. 2. Intermittent tremor of the upper extremities, not present at this time, probably due to underlying anxiety or medication side effects. 3. Generalized anxiety disorder and intermittent behavior disorders. RECOMMENDATIONS: Continue with current medical and psychiatric care. DADA DR: Ming TID: [id number]
--- NOTE | 2021-08-16 23:16 | NUR ---
Pt extremely restless and disorganized this evening. Exit seeking, door checking, repeatedly rattling door handles. Compliant with crushed medications. PRN Seroquel administered with meds. Pt taken to the dayroom to wander until taken to bed. Pt currently sleeping. Addendum: 08/17/21 at 0037 by CL SCHILLING RN Pt was delusional this evening, stating "there is a baby that we are drowning." Pt also told SURGICAL ORDERLY that he was going to "cut her head in half."
--- NOTE | 2021-08-17 02:55 | PN ---
DATE: 08/16/2021 SUBJECTIVE: The patient was seen today, met with the staff, chart reviewed, and also covering for Dr. Zhang. Also, participated in the treatment review conference today. He is very confused, disoriented to surroundings, not able to identify his family members and also gets agitated easily, exit-seeking behaviors. The patient was given Seroquel p.r.n. last night because of the agitation. Apparently, his was a caregiver for him since 2013 and lately she is not able to take care of him and apparently needing a placement. 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 OBSERVATION: Vital signs are stable. Sleep has improved. The patient's appetite fairly good. CURRENT MEDICATIONS: The patient's current medications include citalopram 30 mg daily, mirtazapine 15 mg at night, Seroquel 25 mg q. 6 hours p.r.n., Namenda 10 mg twice a day. The patient is not having any side effects to medications. ASSESSMENT: Major neurocognitive disorder with psychotic symptoms. PLAN: Continue with treatment. LENGTH OF STAY: 7 to 10 days. EULALIA/MARK/ZEINAB DR: Jigar TID: [id number]
[2021-08-17 05:59] VITALS: BP 172/82
[2021-08-17 06:56] LABS: BASO # 0.1 x10^3/uL (0.0-0.2); BASO % 1 % (0-3); EOS # 0.2 x10^3/uL (0.0-0.7); EOS % 3 % (0-3); HEMATOCRIT 41.4 % (39.0-53.0); HEMOGLOBIN 13.9 g/dL (13.0-17.5); LYMPH # 1.8 x10^3/uL (1.0-4.8); LYMPH % 24 % (24-48); MEAN CORPUSCULAR HEMOGLOBIN 31 pg (25-35); MEAN CORPUSCULAR HGB CONC 34 g/dL (31-37); MEAN CORPUSCULAR VOLUME 92 fL (79-100); MONO # 0.6 x10^3/uL (0.0-1.1); MONO % 9 % (0-9); NEUT # 4.8 x10^3uL (1.8-7.7); NEUT % 64 % (31-73); PLATELET COUNT 231 x10^3/uL (140-400); RED CELL DISTRIBUTION WIDTH 13.5 % (11.5-14.5); WHITE BLOOD COUNT 7.5 x10^3/uL (4.0-11.0)
[2021-08-17 07:21] LABS: ALBUMIN 3.4 g/dL (3.4-5.0); ALBUMIN/GLOBULIN RATIO 1.4 (1.0-1.7); CALCIUM 8.5 mg/dL (8.5-10.1); CREATININE 1.1 mg/dL (0.7-1.3); POTASSIUM 4.3 mmol/L (3.5-5.1); TOTAL BILIRUBIN 0.4 mg/dL (0.2-1.0); TOTAL PROTEIN 5.9 g/dL (6.4-8.2)
[2021-08-17] MEDS: VITAMIN B COMPLEX CAPSULE. PO SCH (08:07)
[2021-08-17] MEDS: MULTIVITAMIN with MINERAL TABLET. PO SCH (08:07)
[2021-08-17] MEDS: MEMANTINE 10 MG TABLET. PO SCH ×2 (08:07→19:48)
[2021-08-17] MEDS: CITALOPRAM 20 MG TABLET. PO SCH (08:07)
--- NOTE | 2021-08-17 09:00 | NUR ---
Pt confused and disorganized, A&O to self only. Absent OF disruptive behaviors. He is compliant with medications crushed and mixed into pudding. He has been appropriate so far this shift, even offering CNAs some of his breakfast in a willingness to share with others (offers of food were politely declined by staff). So far absent of wandering or exit seeking behaviors. PAINAD score is 0. Plan of care continues, will pass to next shift.
[2021-08-17 15:43] VITALS: BP 140/72
[2021-08-17] MEDS: MIRTAZAPINE 15 MG TABLET PO SCH (19:48)
[2021-08-17] MEDS: QUEtiapine 25 MG TABLET. PO SCH (19:49)
[2021-08-17] MEDS: QUEtiapine 25 MG TABLET. PO PRN (20:53)
--- NOTE | 2021-08-17 23:06 | PN ---
DATE: 08/17/2021 SUBJECTIVE: The patient was seen today, met with the staff, chart reviewed and also covering for Dr. Zhang. Staff reports continued behavior problems including delusional behaviors, restlessness, checking the doors and pacing. Staff also reports his behaviors gets worse in the evening and needing p.r.n. medication to contain his behaviors. OBSERVATION: VITAL SIGNS: Temperature 97.2, blood pressure 172/82, pulse 74, respirations 16, O2 sat 97%. GENERAL: Slept about 6-1/2 hours last night. The patient's appetite improved. NEUROLOGIC: The patient's overall behaviors improved. He is much calmer most of the time, but he has episodes where he becomes increasingly agitated and confused. The patient is not depressed. He is pleasant. The patient has difficulty with his thinking and concentration and also disorganized. LABORATORY DATA: The patient's lab reviewed. CURRENT MEDICATIONS: Include citalopram 30 mg daily, mirtazapine 15 mg at night, Seroquel 25 mg q.6 hours p.r.n., Namenda 10 mg twice a day. The patient is not having any side effects. No falls. ASSESSMENT: Major neurocognitive disorder with psychotic symptoms. PLAN: To continue with treatment. LENGTH OF STAY: Seven to ten days. NORMA DR: Jigar TID: [id number]
--- NOTE | 2021-08-17 23:59 | NUR ---
Patient is located in the hallway on assumption of care, walking back and forth. Alert to self only. Disorganized, restless, pleasantly confused this evening. Has trouble following directions, needs to be prompted several times. No delusions or paranoid behavior voiced so far this shift. Compliant with meds crushed in chocolate pudding. He does not appear to be experiencing any pain or discomfort so far this shift. Will continue to monitor.
[2021-08-18 06:01] VITALS: BP 152/76
[2021-08-18] MEDS: MEMANTINE 10 MG TABLET. PO SCH ×2 (08:34→20:05)
[2021-08-18] MEDS: CITALOPRAM 20 MG TABLET. PO SCH (08:34)
[2021-08-18] MEDS: MULTIVITAMIN with MINERAL TABLET. PO SCH (08:34)
[2021-08-18] MEDS: VITAMIN B COMPLEX CAPSULE. PO SCH (08:34)
[2021-08-18] MEDS: QUEtiapine 25 MG TABLET. PO SCH ×3 (08:34→15:48)
--- NOTE | 2021-08-18 14:09 | NUR ---
Nursing note: Patient is in dinning room for morning medication & assessment. He was compliant with medications taken crushed/floated in pudding. He is A/O to self only. He is disorganized, calm, & pleasant. He walks independently. Patient denies pain/discomfort. He is currently wandering in latif. Will continue to monitor. Addendum: 08/18/21 at 1559 by REJI MIDDLETON RN RN Patient wandering and exit seeking in the afternoon. He was voicing worry about the children that went up and down the latif. He grabbed peer & staff by theirs arms, staff assisted to deescalate patient. PRN given per order.
[2021-08-18 15:53] VITALS: BP 108/69
[2021-08-18] MEDS: MIRTAZAPINE 15 MG TABLET PO SCH (20:06)
[2021-08-18] MEDS: QUEtiapine 25 MG TABLET. PO PRN (20:46)
[2021-08-18] MEDS ORDERED: QUEtiapine 25 MG TABLET. PO ONE (21:00)
--- NOTE | 2021-08-18 23:55 | NUR ---
Patient is located in the hallway on assumption of care, walking back and forth. Alert to self only. Disorganized, restless, pleasantly confused this evening. Has trouble following directions, needs to be prompted several times. No delusions or paranoid behavior voiced so far this shift. Compliant with meds crushed in chocolate pudding. Restless, getting up out of bed constantly. PRN Seroquel at 2044 administered with good effect. He does not appear to be experiencing any pain or discomfort so far this shift. Will continue to monitor.
[2021-08-19 06:33] VITALS: BP 147/75
[2021-08-19] MEDS: CITALOPRAM 20 MG TABLET. PO SCH (08:06)
[2021-08-19] MEDS: MULTIVITAMIN with MINERAL TABLET. PO SCH (08:06)
[2021-08-19] MEDS: QUEtiapine 25 MG TABLET. PO SCH ×3 (08:06→19:44)
[2021-08-19] MEDS: VITAMIN B COMPLEX CAPSULE. PO SCH (08:07)
[2021-08-19] MEDS: MEMANTINE 10 MG TABLET. PO SCH ×2 (08:07→19:44)
--- NOTE | 2021-08-19 13:58 | NUR ---
Nursing note: Patient is in dinning room for morning medication & assessment. He was compliant with medications taken crushed/floated in pudding. He is A/O to self only, unable to report day of . He is disorganized, wandering, exit seeking, pleasantly confused & restless. He walks independently. Patient denies pain/discomfort. He is currently sitting in the day room. Will continue to monitor.
[2021-08-19 16:00] VITALS: BP 135/73
[2021-08-19] MEDS: QUEtiapine 25 MG TABLET. PO PRN ×2 (16:23→22:38)
--- NOTE | 2021-08-19 18:55 | PN ---
DATE: 08/18/2021 SUBJECTIVE: This is a late entry for the service date 08/18/2021 by telehealth, discussed with the staff and chart reviewed. The patient's behavior has improved. He is much calmer, still tends to pace a lot, but not agitated. The patient is able to make eye contact and limited communication. Continues to have disorganized thinking, but no evidence of psychotic symptoms. He does not appear depressed. OBSERVATION: VITAL SIGNS: Temperature 98.0, blood pressure 152/76, pulse 62, respirations 20, O2 sat 93%. GENERAL: Slept about 6 hours last night. The patient's appetite is fair. LABORATORY DATA: The patient's lab reviewed. CURRENT MEDICATIONS: Citalopram 30 mg daily, mirtazapine 15 mg at night, Seroquel 25 mg q. 6 hours p.r.n., and Namenda 10 mg twice a day. The patient is not having any side effects to medications. ASSESSMENT: Major neurocognitive disorder with psychotic symptoms. PLAN: To continue with the treatment. LENGTH OF STAY: 7-[address]: Jigar TID: [id number]
--- NOTE | 2021-08-19 18:58 | PN ---
DATE: 08/19/2021 SUBJECTIVE: The patient was seen today, met with the staff, chart reviewed, and also covering for Dr. Zhang. The patient has not presented with any major behavior problems since yesterday. No falls, but continues to be withdrawn, confused, disorganized thinking and also having difficulty with communication. OBSERVATION: VITAL SIGNS: Temperature 97.9, blood pressure 197/75, pulse 61, respirations 16, O2 sat 98%. GENERAL: Slept about 6 hours last night. The patient's appetite is fair. LABORATORY DATA: The patient's lab reviewed. CURRENT MEDICATIONS: Citalopram 30 mg daily, mirtazapine 15 mg at night, Namenda 10 mg twice a day and Seroquel 25 mg q. 6 hours p.r.n. The patient is not having any side effects to medications. ASSESSMENT: Major neurocognitive disorder with psychotic symptoms. PLAN: To continue treatment. LENGTH OF STAY: 7 to 10 days. EULALIA/NAGI DR: Jigar TID: [id number]
[2021-08-19] MEDS: MIRTAZAPINE 15 MG TABLET PO SCH (19:44)
--- NOTE | 2021-08-19 23:25 | NUR ---
Patient is located in the hallway on assumption of care, walking back and forth. Alert to self only. Disorganized, restless, pleasantly confused this evening. Has trouble following directions, needs to be prompted several times. No delusions or paranoid behavior voiced so far this shift. Compliant with meds crushed in chocolate pudding. Restless, getting up out of bed constantly. PRN Melissa at 2238 and patient brought to the day room to burn off some energy. He does not appear to be experiencing any pain or discomfort so far this shift. Will continue to monitor.
[2021-08-20 06:17] VITALS: BP 143/71
[2021-08-20] MEDS: VITAMIN B COMPLEX CAPSULE. PO SCH (08:00)
[2021-08-20] MEDS: QUEtiapine 25 MG TABLET. PO SCH ×3 (08:00→21:19)
[2021-08-20] MEDS: MEMANTINE 10 MG TABLET. PO SCH ×2 (08:00→21:19)
[2021-08-20] MEDS: MULTIVITAMIN with MINERAL TABLET. PO SCH (08:00)
[2021-08-20] MEDS: CITALOPRAM 20 MG TABLET. PO SCH (08:00)
--- NOTE | 2021-08-20 16:16 | NUR ---
Nursing note: Patient is in dinning room for morning medication & assessment. He was compliant with medications taken crushed/floated in pudding. He is A/O to self only, unable to report birthday. He is disorganized, wandering in and out of rooms, gathering miscellaneous items, exit seeking, pleasantly confused & restless. He walks independently. Patient denies pain/discomfort. He is currently wandering through the latif. Will continue to monitor.
[2021-08-20 16:25] VITALS: BP 128/71
[2021-08-20] MEDS: MIRTAZAPINE 15 MG TABLET PO SCH (21:19)
--- NOTE | 2021-08-20 21:47 | PN ---
DATE: 08/20/2021 SUBJECTIVE: The patient was seen today, met with the staff, chart reviewed and also covering for Dr. Zhang. The patient's behavior remains the same. The patient is difficult to redirect, has advanced dementia. The patient is much calmer. The patient is not able to communicate his needs. He is totally dependent on ADLs. OBSERVATION: VITAL SIGNS: Temperature 97.8, blood pressure 143/71, pulse 69, respirations 16, O2 sat 96%. Slept about 5-1/2 hours last night. The patient's appetite fair. CURRENT MEDICATIONS: Include citalopram 30 mg daily, mirtazapine 15 mg at night, Namenda 10 mg twice a day and Seroquel 25 mg q.8 hours p.r.n. The patient is not having any side effects to medications. ASSESSMENT: Major neurocognitive disorder with psychotic features. PLAN: To continue with the treatment. LENGTH OF STAY: Seven to ten days. NORMA DR: Jigar TID: [id number]
--- NOTE | 2021-08-21 03:45 | NUR ---
Last evening pt walked in the hallway and at times would go into others rooms. He took meds crushed in pudding and has been redirectable.
[2021-08-21 06:12] VITALS: BP 142/85
[2021-08-21] MEDS: VITAMIN B COMPLEX CAPSULE. PO SCH (08:42)
[2021-08-21] MEDS: MULTIVITAMIN with MINERAL TABLET. PO SCH (08:43)
[2021-08-21] MEDS: MEMANTINE 10 MG TABLET. PO SCH ×2 (08:43→20:01)
[2021-08-21] MEDS: CITALOPRAM 20 MG TABLET. PO SCH (08:43)
[2021-08-21] MEDS: QUEtiapine 25 MG TABLET. PO SCH ×3 (08:43→20:02)
[2021-08-21 15:41] VITALS: BP 120/76
[2021-08-21] MEDS: MIRTAZAPINE 15 MG TABLET PO SCH (20:01)
--- NOTE | 2021-08-21 21:54 | PN ---
DATE: 08/21/2021 SUBJECTIVE: The patient was seen today, met with the staff, chart reviewed. The patient continues to have problems. The patient is not able to follow directions, sometimes resisted to care and is constantly pacing, __. The patient also is intrusive, demanding, severe confusion. Sometimes difficult to redirect. OBSERVATION: VITAL SIGNS: Temperature 97.4, blood pressure 142/85, pulse 71, respirations 16, O2 sat 95%. GENERAL: Slept about 3-1/5 hours last night. LABORATORY DATA: The patient's lab reviewed. CURRENT MEDICATIONS: The patient's current medications include citalopram 30 mg daily, mirtazapine 15 mg at night, Namenda 10 mg twice a day and Seroquel 25 mg every 8 hours p.r.n. The patient is not having any side effects to medications. ASSESSMENT: Major neurocognitive disorder with psychotic features. PLAN: Continue with treatment. LENGTH OF STAY: 7 to [address]: Jigar TID: [id number]
--- NOTE | 2021-08-22 03:23 | NUR ---
Patient walked in the latif last evening and interacted with others without aggression. At times he would go into peers rooms then could be relocated by redirection. He took crushed in pudding and has been cooperative with cares. He is able to give first name and partial day. Since going to bed he has been sleeping and he has had no behaviors tonight.
[2021-08-22 06:29] VITALS: BP 136/78
[2021-08-22] MEDS: MULTIVITAMIN with MINERAL TABLET. PO SCH (08:46)
[2021-08-22] MEDS: VITAMIN B COMPLEX CAPSULE. PO SCH (08:47)
[2021-08-22] MEDS: MEMANTINE 10 MG TABLET. PO SCH ×2 (08:47→20:59)
[2021-08-22] MEDS: QUEtiapine 25 MG TABLET. PO SCH ×3 (08:47→21:00)
[2021-08-22] MEDS: CITALOPRAM 20 MG TABLET. PO SCH (08:47)
--- NOTE | 2021-08-22 14:06 | NUR ---
Nurse Day Shift Note: Pt presents with flat affect/mood. Pt is low-panchal on the unit today. Pt said thank you when he was brought his lunch today in the dining latif. Pt has been pleasant during the shift. Pt has a confused look on his face when he is being spoken to by staff, but pt does not verbally respond often. Pt is medication compliant. Pt is noted to spend time in his room and in the hallway today. Pt follows rules/routines on the unit. Pt's vitals are WNL. Pt slept 8.25 hours last night. Will continue to monitor.
[2021-08-22 16:03] VITALS: BP 117/71
[2021-08-22] MEDS: MIRTAZAPINE 15 MG TABLET PO SCH (21:00)
--- NOTE | 2021-08-22 21:53 | PN ---
DATE: 08/22/2021 SUBJECTIVE: The patient was seen today, met with the staff. Chart reviewed. The patient was still confused, disorganized, constantly pacing, intrusive or walking into other's room, problems with boundaries. The patient also difficult to redirect. OBSERVATION: VITAL SIGNS: Temperature 98.0, blood pressure 136/78, pulse 66, respirations 18, O2 sat 98%. GENERAL: Slept about 8 hours last night. The patient's appetite is fair. LABORATORY DATA: The patient's lab reviewed. CURRENT MEDICATIONS: Citalopram 20 mg daily, Seroquel 25 mg t.i.d., mirtazapine 15 mg at night, Namenda 10 mg twice a day. The patient is also on Seroquel 25 mg q. 4 hours p.r.n. The patient is not having any side effects to medications. ASSESSMENT: Major neurocognitive disorder with psychotic features. PLAN: Continue with treatment. LENGTH OF STAY: 7-[address]: Jigar TID: [id number]
[2021-08-23 06:12] VITALS: BP 147/77
[2021-08-23] MEDS: QUEtiapine 25 MG TABLET. PO SCH ×3 (08:14→21:00)
[2021-08-23] MEDS: CITALOPRAM 20 MG TABLET. PO SCH (08:14)
[2021-08-23] MEDS: VITAMIN B COMPLEX CAPSULE. PO SCH (08:14)
[2021-08-23] MEDS: MULTIVITAMIN with MINERAL TABLET. PO SCH (08:14)
[2021-08-23] MEDS: MEMANTINE 10 MG TABLET. PO SCH ×2 (08:14→21:00)
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
--- NOTE | 2021-08-23 13:23 | NUR ---
Nsg Note; Joshua tends to wander the halls and has been door checking, though not frantically. He dose occ wander into peers' rooms but is able to be redirected out of the room. He is confused and not able to hold a conversation.
[2021-08-23 15:54] VITALS: BP 124/66
--- NOTE | 2021-08-23 20:44 | PN ---
DATE: 08/23/2021 SUBJECTIVE: The patient was seen today, met with the staff, chart reviewed and also participated in the treatment review meeting. The patient continues to have problems, confusion, wandering, checking doors constantly, moves from door to door, also intrusive, upsetting other residents because of walking into their rooms. The patient is able to walk without a walker. OBSERVATION: VITAL SIGNS: Temperature 97.8, blood pressure 147/72, pulse 66, respirations 12, O2 sat 99%. GENERAL: Slept about 7 hours last night. LABORATORY DATA: The patient's lab reviewed. CURRENT MEDICATIONS: The patient's current medications include citalopram 20 mg daily, Seroquel 25 mg t.i.d., mirtazapine 15 mg at night, Namenda 10 mg twice a day and Seroquel 25 mg every 4 hours p.r.n. He is not having any side effects to medications. The patient is difficult to redirect. The patient also exhibiting increased psychomotor activity at times and also significant decline in executive functioning, needing assistance with ADLs. ASSESSMENT: Major neurocognitive disorder with psychotic features. PLAN: To continue with the treatment. LENGTH OF STAY: Seven to [address]: Jigar TID: [id number]
[2021-08-23] MEDS: MIRTAZAPINE 15 MG TABLET PO SCH (20:59)
[2021-08-23] MEDS: QUEtiapine 25 MG TABLET. PO PRN (22:16)
--- NOTE | 2021-08-24 03:18 | NUR ---
Nursing Note The patient was calm and cooperative this shift. The patient was compliant with HS medications and took them crushed in pudding. The patient was alert to name only. The patient wandered the unit while awake and required redirection on several occasions due to entering other patients rooms. The patient was restless and anxious later in the night. The patient received PRN Seroquel per PRN order. The patient is currently sleeping in his room.
[2021-08-24 06:27] VITALS: BP 136/72
[2021-08-24 06:45] LABS: BASO % 1 % (0-3); EOS # 0.1 x10^3/uL (0.0-0.7); EOS % 1 % (0-3); HEMATOCRIT 41.3 % (39.0-53.0); HEMOGLOBIN 13.9 g/dL (13.0-17.5); LYMPH # 0.5 x10^3/uL (1.0-4.8); LYMPH % 6 % (24-48); MEAN CORPUSCULAR HEMOGLOBIN 31 pg (25-35); MEAN CORPUSCULAR HGB CONC 34 g/dL (31-37); MEAN CORPUSCULAR VOLUME 93 fL (79-100); MONO % 13 % (0-9); NEUT # 6.1 x10^3uL (1.8-7.7); NEUT % 80 % (31-73); PLATELET COUNT 190 x10^3/uL (140-400); RED BLOOD COUNT 4.45 x10^6/uL (4.30-5.70); RED CELL DISTRIBUTION WIDTH 13.6 % (11.5-14.5); WHITE BLOOD COUNT 7.6 x10^3/uL (4.0-11.0)
[2021-08-24 06:55] LABS: ALBUMIN/GLOBULIN RATIO 1.4 (1.0-1.7); CALCIUM 8.7 mg/dL (8.5-10.1); CREATININE 1.1 mg/dL (0.7-1.3); TOTAL BILIRUBIN 0.2 mg/dL (0.2-1.0); TOTAL PROTEIN 6.9 g/dL (6.4-8.2)
[2021-08-24] MEDS: CITALOPRAM 20 MG TABLET. PO SCH (08:00)
[2021-08-24] MEDS: VITAMIN B COMPLEX CAPSULE. PO SCH (08:00)
[2021-08-24] MEDS: QUEtiapine 25 MG TABLET. PO SCH ×3 (08:00→19:52)
[2021-08-24] MEDS: MULTIVITAMIN with MINERAL TABLET. PO SCH (08:00)
[2021-08-24] MEDS: MEMANTINE 10 MG TABLET. PO SCH ×2 (08:00→19:52)
--- NOTE | 2021-08-24 11:21 | NUR ---
Nursing Note Pt has glassy eyes, runny nose, sounds congested. Covid swab sent is pending. Pt states he is doing ok for now, states he feels fine as he wipes his nose, eyes, and sounds congested as he talks.
[2021-08-24 16:01] VITALS: BP 126/70
[2021-08-24] MEDS: MIRTAZAPINE 15 MG TABLET PO SCH (19:52)
[2021-08-24] MEDS: QUEtiapine 25 MG TABLET. PO PRN (22:45)
--- NOTE | 2021-08-24 23:15 | NUR ---
Patient is located in his room on assumption of care, sitting in a chair. Alert to self only. Disorganized, restless, pleasantly confused this evening. Comes out of his room and attempts to enter other patient rooms frequently, can be redirected back to his room without issue. No delusions or paranoid behavior voiced so far this shift. Compliant with meds crushed in chocolate pudding. Patient restless, getting up out of bed several times. PRN Seroquel given at 2245, pending effect at this time. He remains awake in his bed. He does not appear to be experiencing any pain or discomfort so far this shift. Will continue to monitor.
--- NOTE | 2021-08-25 00:49 | NUR ---
Patient COVID test reviewed, result positive. Patient continues to have mild symptoms. Nursing melter supervisor oxygen furnace notified. Instructions to place patient in the west hallway to keep him away from other patients, and to retest in 24 hours.
[2021-08-25 06:26] VITALS: BP 110/50
[2021-08-25] MEDS: MEMANTINE 10 MG TABLET. PO SCH ×2 (07:39→09:00)
[2021-08-25] MEDS: MULTIVITAMIN with MINERAL TABLET. PO SCH ×2 (07:39→09:00)
[2021-08-25] MEDS: QUEtiapine 25 MG TABLET. PO SCH ×2 (07:40→09:00)
[2021-08-25] MEDS: CITALOPRAM 20 MG TABLET. PO SCH ×2 (07:40→09:00)
[2021-08-25] MEDS: VITAMIN B COMPLEX CAPSULE. PO SCH ×2 (07:41→09:00)
--- NOTE | 2021-08-25 08:23 | NUR ---
Pt in bed sleeping. Breathing even, equal and unlabored. No signs of pain or distress. Shift assessment and medication administration pending. Will continue to monitor.
--- NOTE | 2021-08-25 10:16 | NUR ---
Pt continues to sleep past breakfast. Lungs diminished with crackles upon auscultation, he snores with a wet sounding gurgle in his throat. O2 sats 92% RA, pt assisted to a fowlers position for better oxygenation. Temp 101.[address] Smith paged for further orders. PO medications held d/t pt's current status and presentation. He remains on isolation d/t positive COVID test. Plan of care continues, will pass to next shift. Addendum: 08/25/21 at 1025 by DONATO SIMPOSN RN Received callback from Do Smith: orders given to D/C scheduled Seroquel and Remeron, no PRN orders to address fever at this time. Orders read back and verified.
[2021-08-25] MEDS ORDERED: ACET325T21 PO (11:29)
[2021-08-25] MEDS ORDERED: MAG-124 PO (11:30)
[2021-08-25] MEDS ORDERED: MAGN24003 PO (11:31)
[2021-08-25] MEDS ORDERED: METH1ADH TP (11:32)
[2021-08-25] MEDS ORDERED: MIRT-37 PO (11:32)
[2021-08-25] MEDS ORDERED: QUET25TA5 PO ×2 (11:33)
--- NOTE | 2021-08-25 12:48 | NUR ---
Pt has fever 102.2, PRN Acetaminophen 650 mg PO administered crushed and mixed into pudding.
--- NOTE | 2021-08-25 13:24 | NUR ---
Transition Record was faxed to follow-up provider with the following elements: Reason for admission, procedures, tests, principal diagnosis, pending studies, patient instructions, 10/03 contact information for unit, phone number to obtain pending test results, plan for follow-up care, physician follow-up, advanced directive information, and medication list with dose, duration and instructions. This information was included in the following documents: History and physical, lab results, study results, progress notes, social work planning form, DC instruction form, patient visit summary, and medication reconciliation form. Date & time record faxed: 08/25/21 1001 Record faxed to: [address] Record discussed with/ report given to: Asha HOYOS at [address]
--- NOTE | 2021-08-28 11:20 | PN ---
DATE: 08/24/2021 SUBJECTIVE: The patient was seen today, met with the staff. Chart reviewed. The patient's behavior, remains the same withdrawn, agitated easily, wandering, room checking, intrusive. He is confused, difficult to redirect. OBSERVATION: VITAL SIGNS: Temperature 97.8, blood pressure 136/72, pulse 91, respirations 18, O2 sat 98%. Slept only about 1.5 hours last night. CURRENT MEDICATIONS: Citalopram 20 mg daily, Seroquel 25 mg t.i.d., mirtazapine 15 mg at night, Namenda 10 mg twice a day and Seroquel 25 mg q. 4 hours p.r.n. The patient denies of any side effects to medications. The patient needing assistance with ADLs. ASSESSMENT: Major neurocognitive disorder with psychotic features. PLAN: To continue with treatment. LENGTH OF STAY: 7-[address]: Jigar TID: [id number]
== END 2021-08-25 13:28 | disposition short-term general hospital (02) | DRG 56 ==
LOC: GEROPSY 10:30
PROVIDERS: ADMIT Psychiatry & Neurology Psychiatry; ATTEND Psychiatry & Neurology Psychiatry
DX: G30.9 Alzheimer's disease, unspecified (principal); F02.81 Dementia in other diseases classified elsewhere, unspecified severity, with behavioral disturbance; U07.1 COVID-19; F41.1 Generalized anxiety disorder; M19.90 Unspecified osteoarthritis, unspecified site; F63.9 Impulse disorder, unspecified; N40.0 Benign prostatic hyperplasia without lower urinary tract symptoms; Z79.899 Other long term (current) drug therapy; Z86.16 Personal history of COVID-19; Z66 Do not resuscitate
CPT/HCPCS: 36415; 70450; 80053; 80061; 81001; 82306; 82607; 83036; 83540; 83550; 83735; 84436; 84443; 84480; 85025; 85379; 86592; 90471; 90686; U0003

== ENCOUNTER 2021-08-25 11:05 | Inpatient (IN) | payer MEDICARE ==
[~2021-08-25] VITALS: Ht 167.6 cm; Wt 60.4 kg
[~2021-08-25 11:05] MED LIST: CITA40TA6 PO; MEMA10TA PO; MULT-121 PO; VITA1TAB19 PO
[2021-08-25] MEDS ORDERED: ACET325T21 PO (11:29)
[2021-08-25] MEDS ORDERED: MAG-124 PO (11:30)
[2021-08-25] MEDS ORDERED: MAGN24003 PO (11:31)
[2021-08-25] MEDS ORDERED: METH1ADH TP (11:32)
[2021-08-25] MEDS ORDERED: MIRT-37 PO (11:32)
[2021-08-25] MEDS ORDERED: QUET25TA5 PO ×2 (11:33)
[2021-08-25 15:00] VITALS: BP 113/61
[2021-08-25] MEDS ORDERED: ACETAMINOPHEN 325 MG TABLET PO PRN (19:30)
[2021-08-25 20:17] VITALS: BP 115/65
[2021-08-26 00:04] VITALS: BP 116/65
--- NOTE | 2021-08-26 05:01 | NUR ---
Pt has been lethargic and drowsy this evening. Pt's O2 sats at upper 80s. 3L NC applied. Pt unable to clear secretions, sounding gurgly in his upper airway. Pt unable to cough up secretions as he is too confused. Sats increased to 93%. Around 0330, pt's bed alarm sounded. Staff found pt attempting to climb out of bed. Pt taken to the toilet where he had a large BM. Pt desatted into the mid 70s and could not recover. 15L NC and 15L NRB applied. Over 30-40 min, pt's sats increased to 93% on 15L NRB. Pt anxious and attempted to climb out of bed again. Bedside commode brought into room. Pt had another large BM. Pt currently awake in bed with 15L NRB applied and personal alarm on. O2 at 93%. Will continue to monitor.
[2021-08-26 05:28] VITALS: BP 120/73
[2021-08-26] MEDS ORDERED: ACETAMINOPHEN 650 MG SUPP.RECT. PR PRN (05:45)
--- NOTE | 2021-08-26 06:38 | NUR ---
Dr. Smith paged regarding pt status. See emar for orders received.
--- NOTE | 2021-08-26 06:47 | RAD ---
XR CHEST 1V History: Reason: covid positive, decreased o2 sats, went from no o2 to 15L overnig / Spl. Instruction s: / History: Comparison: None. Findings: Mild ill-defined right mid and bibasilar opacities. No pleural effusion. Low lung volumes. No pneumot horax. Normal heart size. Impression: 1. Mild multifocal ill-defined opacities, can be seen with viral pneumonia. Electronically signed by: Kt Torres DO (08/26/2021 6:45 AM) [facility]
[2021-08-26] MEDS: methylPREDNISolone SOD SUCC PF 40 MG/ML VIAL. IV SCH ×2 (08:11→19:52)
[2021-08-26] MEDS: CITALOPRAM 20 MG TABLET. PO SCH (08:56)
[2021-08-26] MEDS ORDERED: ENOXAPARIN 40 MG/0.4 ML SYRINGE. SQ SCH (09:00)
[2021-08-26 11:48] VITALS: BP 120/68
[2021-08-26] MEDS: QUEtiapine 25 MG TABLET. PO SCH ×2 (14:57→19:51)
[2021-08-26 15:44] VITALS: BP 104/64
[2021-08-26 19:00] VITALS: BP 105/58
[2021-08-26] MEDS: MIRTAZAPINE 7.5 MG TABLET. PO SCH (19:50)
[2021-08-26 23:00] VITALS: BP 128/53
--- NOTE | 2021-08-27 00:34 | PN ---
DATE: 08/26/2021 ATTENDING PHYSICIAN: Dr. Smith. SUBJECTIVE: Pleasantly confused. He does not complain of any dyspnea. Last night, his oxygen saturation diminished. He had to require high flow oxygen. OBJECTIVE FINDINGS: VITAL SIGNS: Blood pressure this morning is 116/76, temperature is 101.0 degrees Fahrenheit, oxygen saturation 91% on 3 liters, but it had to go up to 15 liters. He does not keep it on and keeps puling the nasal cannula off. HEENT: Head is without trauma. Pupils are reactive. Sclerae nonicteric. Oropharynx clear. NECK: Supple. LUNGS: Shallow respirations. Minimal rhonchi. CARDIOVASCULAR: Regular heart tones. ABDOMEN: Soft. EXTREMITIES: Without edema. NEUROLOGIC FINDINGS: Pleasantly confused. DIAGNOSTIC DATA: I reviewed his chest x-ray this morning. The costophrenic angles are sharp. There are patchy diffuse bilateral and bibasilar infiltrates, patchy in nature, which is not too severe. ASSESSMENT: 1. COVID-19 pneumonia in this unvaccinated patient. 2. Underlying chronic obstructive pulmonary disease. 3. Dementia with agitation. PLAN: 1. Supplemental oxygen has been ordered. 2. Continued steroids. 3. Empiric Lovenox. 4. We are in the process of weaning down his oxygen requirements. 5. Continue home meds. AUDREY/NAN/ZEINAB DR: AUDREY/calderon TID: [id number]
[2021-08-27 05:00] VITALS: BP 102/60
--- NOTE | 2021-08-27 07:52 | PDOC ---
Exam Note: William Note: This note is a late entry for 08/26/2021 covers elements not covered in my initial note. Subjective: The patient was seen on telehealth rounds in the evening of 08/26/2021 due to COVID-19 exposure on our unit and half the patients have been COVID positive and transferred to the Medical/Surgical Floor. Discussed with Ladonna HOYOS and reviewed the chart. Also discussed the patient with Dr. Reeves who covered for me for the past 2 weeks. Reviewed current and past records. Overall he remains confused, has done reasonably well. I have been asked to follow the patient on [facility] since he was transferred here because of COVID positive status. Dr. Smith is the attending project officer on [facility]. CT head shows moderate atrophy, ventriculomegaly consequent to the above and old right temporal infarct. He is quite confused, demented especially given his age of 71. Review of Systems: No CV, , pulmonary, eye, ENT system symptoms on review. Reliability poor. Mental Status Exam: The patient is oriented to himself. Insight and judgment, recent and remote memory, attention and concentration, fund of knowledge is poor consistent with his diagnoses. Laboratory Data: Reviewed. Impression: Major neurocognitive disorder, Alzheimer, vascular with delusion, depression behavioral disturbance. Anxiety disorder unspecified. Impulse control disorder unspecified. Plan: Continue current psychotropics, Seroquel 12.5 mg t.i.d., 25 mg h.s. p.r.n. psychosis, agitation, Remeron 7.5 mg h.s., Celexa 40 mg a day. Reviewed drug interactions, risk-benefit ratio which favors no change at this time. We will make further adjustments as clinically indicated. Assessment: Vital Signs/I&O: Vital Signs Date Time Temp Pulse Resp B/P (MAP) Pulse Ox O2 Delivery O2 Flow Rate FiO2 08/27/21 05:00 97.8 75 16 102/60 (74) 92 Nasal Cannula 3.0 I & O 08/26/21 08/26/21 08/27/21 15:00 23:00 07:00 Intake Total 50 ml 360 ml 120 ml Balance 50 ml 360 ml 120 ml Current Medications: Meds: Current Medications Medications (Trade) Dose Ordered Sig/Fabi Route PRN Reason Start Time Stop Time Status Last Admin Dose Admin Citalopram Hydrobromide (CeleXA) 40 mg DAILY PO 08/26/21 09:00 08/26/21 08:56 Acetaminophen (Tylenol) 650 mg PRN Q6HRS PRN PO MILD PAIN / TEMP > 100.3'F 08/25/21 19:30 08/25/21 19:36 Acetaminophen (Tylenol Supp) 650 mg PRN Q6HRS PRN TN MILD PAIN / TEMP > 100.3'F 08/26/21 05:45 08/26/21 05:37 Guaifenesin (Mucinex Er) 600 mg BID PO 08/26/21 09:00 08/26/21 19:50 Methylprednisolone Sodium Succinate (SOLU-Medrol 40MG VIAL) 60 mg BID IV 08/26/21 09:00 08/26/21 19:52 Enoxaparin Sodium (Lovenox 40mg Syringe) 30 mg DAILY SQ 08/26/21 09:00 08/26/21 08:57 DC 08/26/21 08:11 Enoxaparin Sodium (Lovenox 40mg Syringe) 40 mg DAILY SQ 08/27/21 09:00 Quetiapine Fumarate (SEROquel) 12.5 mg TID PO 08/26/21 14:00 08/26/21 19:51 Mirtazapine (Remeron) 7.5 mg QHS PO 08/26/21 21:00 08/26/21 19:50 Quetiapine Fumarate (SEROquel) 25 mg PRN QHS PRN PO MOOD 08/26/21 12:15 Current Medications Medications (Trade) Dose Ordered Sig/Fabi Route PRN Reason Start Time Stop Time Status Last Admin Dose Admin Citalopram Hydrobromide (CeleXA) 40 mg DAILY PO 08/26/21 09:00 08/26/21 08:56 Guaifenesin (Mucinex Er) 600 mg BID PO 08/26/21 09:00 08/26/21 19:50 Methylprednisolone Sodium Succinate (SOLU-Medrol 40MG VIAL) 60 mg BID IV 08/26/21 09:00 08/26/21 19:52 Enoxaparin Sodium (Lovenox 40mg Syringe) 30 mg DAILY SQ 08/26/21 09:00 08/26/21 08:57 DC 08/26/21 08:11 Quetiapine Fumarate (SEROquel) 12.5 mg TID PO 08/26/21 14:00 08/26/21 19:51 Mirtazapine (Remeron) 7.5 mg QHS PO 08/26/21 21:00 08/26/21 19:50 I have reviewed the current psychotropics carefully including drug interactions. Risk benefit ratio favors no change other than as noted in my dictated progress note. Diagnosis: Problems: (1) Major neurocognitive disorder (2) Dementia in Alzheimer's disease with delusions (3) Dementia in Alzheimer's disease with depression (4) Dementia of the Alzheimer's type with early onset with behavioral disturbance (5) Dementia, vascular, with delusions (6) Dementia, vascular, with depression (7) Anxiety disorder, unspecified (8) Impulse control disorder, unspecified CHERRIE LIVE MD Aug 27, 2021 07:52
--- NOTE | 2021-08-27 09:30 | PN ---
DATE: 08/27/2021 ATTENDING PHYSICIAN: Dr. Smith. SUBJECTIVE: He is comfortable. He is down to 3 liters of oxygen by nasal cannula to maintain saturations. He is eating breakfast. He has no new complaints. The reason he was on such high flow oxygen, the night before he got up to go to the bathroom, took his oxygen off and desaturated. OBJECTIVE FINDINGS: VITAL SIGNS: Blood pressure this morning is 126/53, pulse is 85 and regular. He is afebrile. Oxygen saturation 92% on 3 liters by nasal cannula. HEENT: Head is without trauma. Pupils are reactive. Sclerae nonicteric. Oropharynx clear. NECK: Supple. LUNGS: Good breath sounds. Minimal wheezing. CARDIOVASCULAR: Regular heart tones. ABDOMEN: Soft. EXTREMITIES: Without edema. NEUROLOGIC: Focally intact. Pleasantly confused. Chest x-ray reviewed yesterday. ASSESSMENT: 1. A 71-year-old gentleman with COVID-19 pneumonia in an unvaccinated patient. 2. Underlying chronic obstructive pulmonary disease. 3. Dementia with agitation. PLAN: 1. Supplemental oxygen has been ordered and has been tapered down. 2. Continue empiric steroids. 3. Empiric Lovenox. 4. Home meds continued. 5. Diet as tolerated. AUDREY/OCTAVIO DR: AUDREY/calderon TID: [id number]
[2021-08-27] MEDS: methylPREDNISolone SOD SUCC PF 40 MG/ML VIAL. IV SCH ×2 (09:31→19:46)
[2021-08-27] MEDS: QUEtiapine 25 MG TABLET. PO SCH ×3 (09:32→19:47)
[2021-08-27] MEDS: CITALOPRAM 20 MG TABLET. PO SCH (09:32)
[2021-08-27] MEDS: ENOXAPARIN 40 MG/0.4 ML SYRINGE. SQ SCH (09:32)
[2021-08-27 10:04] VITALS: BP 126/73
[2021-08-27 14:10] VITALS: BP 117/63
[2021-08-27 19:00] VITALS: BP 134/74
[2021-08-27] MEDS: MIRTAZAPINE 7.5 MG TABLET. PO SCH (19:46)
--- NOTE | 2021-08-27 21:00 | PDOC ---
Exam Note: William Note: Please also refer to the separate dictated note~for this date of service dictated separately.~Patient seen individually. Discussed the patient with Nursing staff reviewed the chart.~Reviewed interim history and current functioning. Reviewed vital signs,~Labs/ Radiology~and current medications noted below. Continue current treatment with the changes noted in the dictated addendum note Assessment: Vital Signs/I&O: Vital Signs Date Time Temp Pulse Resp B/P (MAP) Pulse Ox O2 Delivery O2 Flow Rate FiO2 08/27/21 19:00 97.6 93 20 134/74 (94) 94 Room Air 08/27/21 05:00 3.0 I & O 08/26/21 08/26/21 08/27/21 14:59 22:59 06:59 Intake Total 50 ml 360 ml 120 ml Balance 50 ml 360 ml 120 ml Current Medications: Meds: Current Medications Medications (Trade) Dose Ordered Sig/Fabi Route PRN Reason Start Time Stop Time Status Last Admin Dose Admin Enoxaparin Sodium (Lovenox 40mg Syringe) 40 mg DAILY SQ 08/27/21 09:00 08/27/21 09:32 Lorazepam (Ativan Inj) 2 mg PRN Q3HRS PRN IVP ANXIETY / AGITATION 08/27/21 14:15 08/27/21 19:46 I have reviewed the current psychotropics carefully including drug interactions. Risk benefit ratio favors no change other than as noted in my dictated progress note. Diagnosis: Problems: (1) Impulse control disorder, unspecified (2) Anxiety disorder, unspecified (3) Dementia, vascular, with depression (4) Dementia, vascular, with delusions (5) Dementia in Alzheimer's disease with depression (6) Dementia in Alzheimer's disease with delusions (7) Dementia of the Alzheimer's type with early onset with behavioral disturbance (8) Major neurocognitive disorder CHERRIE LIVE MD Aug 27, 2021 21:00
[2021-08-28 06:12] VITALS: BP 118/67
--- NOTE | 2021-08-28 07:35 | PDOC ---
Exam Note: William Note: This note is a late entry for 08/27/2021 covers elements not covered in my initial note. Subjective: The patient was reviewed by the nursing staff, reviewed the chart and interim history. Discussed with Alix HOYOS. He was transferred from [facility] to [facility] Medical/Surgical floor once he turned Covid positive. He gets agitated at times. Received Ativan once, repeatedly getting out of his room. At times he has been grabbing at things in his hands and seems nothing there. He seems to have some intermittent hallucinations. CT head shows moderate atrophy ventriculomegaly per nursing report. Review of Systems: No CV, , eye, ENT system symptoms on review. Reliability poor. Mental Status Exam: As assessed by nursing staff, the patient is oriented to himself. Insight and judgment, recent and remote memory, attention and concentration, fund of knowledge is poor consistent with his diagnoses. Laboratory Data: Reviewed. Impression: Major neurocognitive disorder, Alzheimer, vascular with delusion, depression behavioral disturbance. Anxiety disorder unspecified. Impulse control disorder unspecified. Plan: Continue current psychotropics. If agitation persists, we may add low dose Depakote Sprinkle for mood stabilization but for now continue Remeron, Celexa and Seroquel. Assessment: Vital Signs/I&O: Vital Signs Date Time Temp Pulse Resp B/P (MAP) Pulse Ox O2 Delivery O2 Flow Rate FiO2 08/28/21 06:12 97.0 73 18 118/67 (84) 95 Nasal Cannula 2.0 I & O 08/27/21 08/27/21 08/28/21 14:59 22:59 06:59 Intake Total 720 ml 120 ml 0 ml Balance 720 ml 120 ml 0 ml Current Medications: Meds: Current Medications Medications (Trade) Dose Ordered Sig/Fabi Route PRN Reason Start Time Stop Time Status Last Admin Dose Admin Enoxaparin Sodium (Lovenox 40mg Syringe) 40 mg DAILY SQ 08/27/21 09:00 08/27/21 09:32 Lorazepam (Ativan Inj) 2 mg PRN Q3HRS PRN IVP ANXIETY / AGITATION 08/27/21 14:15 08/27/21 19:46 I have reviewed the current psychotropics carefully including drug interactions. Risk benefit ratio favors no change other than as noted in my dictated progress note. Diagnosis: Problems: (1) Impulse control disorder, unspecified (2) Anxiety disorder, unspecified (3) Dementia, vascular, with depression (4) Dementia, vascular, with delusions (5) Dementia in Alzheimer's disease with depression (6) Dementia in Alzheimer's disease with delusions (7) Dementia of the Alzheimer's type with early onset with behavioral disturbance (8) Major neurocognitive disorder CHERRIE LIVE MD Aug 28, 2021 07:35
[2021-08-28] MEDS: QUEtiapine 25 MG TABLET. PO SCH ×3 (09:56→20:03)
[2021-08-28] MEDS: CITALOPRAM 20 MG TABLET. PO SCH (09:56)
[2021-08-28] MEDS: ENOXAPARIN 40 MG/0.4 ML SYRINGE. SQ SCH (09:56)
[2021-08-28] MEDS: methylPREDNISolone SOD SUCC PF 40 MG/ML VIAL. IV SCH ×2 (09:57→20:02)
--- NOTE | 2021-08-28 11:05 | PN ---
DATE: 08/28/2021 ATTENDING PHYSICIAN: Dr. Smith. SUBJECTIVE: Very confused and agitated. He is taking swings at the nurses. OBJECTIVE FINDINGS: VITAL SIGNS: Blood pressure this morning is 136/76, pulse is 73 and regular. He is afebrile. Oxygen saturation 95% on 2 liters of nasal cannula. HEENT: Head was without trauma. Pupils are reactive. Sclerae nonicteric. The oropharynx is clear. NECK: Supple, no bruits. LUNGS: Show shallow respirations, minimal rhonchi. CARDIOVASCULAR: Regular heart tones. ABDOMEN: Soft. EXTREMITIES: Show no edema. NEUROLOGIC: He is confused, agitated and not aware of what is going on. ASSESSMENT: 1. A 71-year-old gentleman with COVID-19 pneumonia in an unvaccinated patient. 2. Underlying chronic obstructive pulmonary disease requiring decreased amounts of oxygen. 3. Dementia with agitation. PLAN: 1. Supplemental oxygen has been weaned down to 2 liters. 2. Continue empiric steroids. 3. Empiric Lovenox. 4. Psych meds per Psychiatry Service. 5. Diet as tolerated. He is a DNR per advanced directive. Prognosis is poor. JASON DR: AUDREY/calderon TID: [id number]
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
[2021-08-28 11:26] VITALS: BP 128/74
--- NOTE | 2021-08-28 14:20 | NUR ---
REPORT GIVEN TO SOHA MENDOZA. PT MOVED TO [facility]. [facility] SENT WITH PT.
[2021-08-28 15:17] VITALS: BP 120/74
--- NOTE | 2021-08-28 15:35 | NUR ---
Nursing note: Received patient from [address] [place] [address]. Patient was sleeping upon arrival. He is compliant with medications crushed in pudding, his 1400 medication given late due to sleeping. Doesn't appear to have pain/discomfort, no facial grimacing noted. He has a wet, moist cough, unknown if it is productive. Patient has been restless once he awoke. Client is currently resting in bed with eyes closed moving his hands and arms around, call light within reach. Will continue to monitor.
[2021-08-28] MEDS: MIRTAZAPINE 7.5 MG TABLET. PO SCH (20:03)
[2021-08-28 21:09] VITALS: BP 120/52
--- NOTE | 2021-08-28 21:20 | PDOC ---
Exam Note: William Note: Please also refer to the separate dictated note~for this date of service dictated separately.~Patient seen individually. Discussed the patient with Nursing staff reviewed the chart.~Reviewed interim history and current functioning. Reviewed vital signs,~Labs/ Radiology~and current medications noted below. Continue current treatment with the changes noted in the dictated addendum note Assessment: Vital Signs/I&O: Vital Signs Date Time Temp Pulse Resp B/P (MAP) Pulse Ox O2 Delivery O2 Flow Rate FiO2 08/28/21 21:09 98.1 65 18 120/52 (74) 90 Room Air 08/28/21 11:26 2.0 I & O 08/27/21 08/27/21 08/28/21 15:00 23:00 07:00 Intake Total 720 ml 120 ml 0 ml Balance 720 ml 120 ml 0 ml Current Medications: Meds: Current Medications Medications (Trade) Dose Ordered Sig/Fabi Route PRN Reason Start Time Stop Time Status Last Admin Dose Admin Citalopram Hydrobromide (CeleXA) 40 mg DAILY PO 08/26/21 09:00 08/28/21 18:29 DC 08/28/21 09:56 Acetaminophen (Tylenol) 650 mg PRN Q6HRS PRN PO MILD PAIN / TEMP > 100.3'F 08/25/21 19:30 08/25/21 19:36 Acetaminophen (Tylenol Supp) 650 mg PRN Q6HRS PRN [place] MILD PAIN / TEMP > 100.3'F 08/26/21 05:45 08/26/21 05:37 Guaifenesin (Mucinex Er) 600 mg BID PO 08/26/21 09:00 08/28/21 20:04 Methylprednisolone Sodium Succinate (SOLU-Medrol 40MG VIAL) 60 mg BID IV 08/26/21 09:00 08/28/21 20:02 Enoxaparin Sodium (Lovenox 40mg Syringe) 30 mg DAILY SQ 08/26/21 09:00 08/26/21 08:57 DC 08/26/21 08:11 Enoxaparin Sodium (Lovenox 40mg Syringe) 40 mg DAILY SQ 08/27/21 09:00 08/28/21 09:56 Quetiapine Fumarate (SEROquel) 12.5 mg TID PO 08/26/21 14:00 08/28/21 20:03 Mirtazapine (Remeron) 7.5 mg QHS PO 08/26/21 21:00 08/28/21 20:03 Quetiapine Fumarate (SEROquel) 25 mg PRN QHS PRN PO MOOD 08/26/21 12:15 Lorazepam (Ativan Inj) 2 mg PRN Q3HRS PRN IVP ANXIETY / AGITATION 08/27/21 14:15 08/28/21 18:29 DC 08/28/21 10:10 Lorazepam (Ativan) 0.25 mg PRN Q12HR PRN PO ANXIETY / AGITATION 08/28/21 18:30 Sertraline HCl (Zoloft) 50 mg DAILY PO 08/29/21 09:00 I have reviewed the current psychotropics carefully including drug interactions. Risk benefit ratio favors no change other than as noted in my dictated progress note. Diagnosis: Problems: (1) Impulse control disorder, unspecified (2) Anxiety disorder, unspecified (3) Dementia, vascular, with depression (4) Dementia, vascular, with delusions (5) Dementia in Alzheimer's disease with depression (6) Dementia in Alzheimer's disease with delusions (7) Dementia of the Alzheimer's type with early onset with behavioral disturbance (8) Major neurocognitive disorder CHERRIE LIVE MD Aug 28, 2021 21:20
[2021-08-29] MEDS: LORazepam 0.5 MG TABLET PO PRN (02:47)
[2021-08-29 03:34] VITALS: BP 143/67
--- NOTE | 2021-08-29 04:42 | NUR ---
Nursing Note The patient was restless and difficult to redirect. the patient was cooperative with HS medications and took them crushed in pudding. The patient was restless this AM and became combative during cares and was given PRN Ativan per PRN order. The patients restlessness has lessened but still continues.
--- NOTE | 2021-08-29 06:44 | PDOC ---
Exam Note: William Note: This note is a late entry for 08/28/2021 covers elements not covered in my initial note. Subjective: The patient was seen on telehealth rounds on 08/28/2021 with Jayashree HOYOS, reviewed the chart. He was somewhat agitated this morning. Received Ativan p.r.n. 2 mg single dosage and he has been quite sedated all day. We will reduce this to 0.25 mg q.12h. p.r.n. anxiety. Appetite has been poor. Speech has been gibberish per nursing staff. At times he is resistive to cares, kicking at staff, hallucinating and grabbing at things in the air when nothing is there. He has had a moist cough as well. Review of Systems: He is sedated. Impaired ambulation. No CV, , eye, ENT system symptoms on review. Reliability poor. Mental Status Exam: The patient is oriented to himself. Insight and judgment, recent and remote memory, attention and concentration, fund of knowledge is poor consistent with his diagnoses. Laboratory Data: Reviewed. Impression: Major neurocognitive disorder, Alzheimer, vascular with delusion, depression behavioral disturbance. Anxiety disorder unspecified. Impulse control disorder unspecified. Plan: Continue current psychotropics. He is currently on Celexa 40 mg a day. Given his age and other comorbid factors, we will change this to Zoloft 50 mg a day. He has also had a moist cough and we will defer this to Dr. Smith. Assessment: Vital Signs/I&O: Vital Signs Date Time Temp Pulse Resp B/P (MAP) Pulse Ox O2 Delivery O2 Flow Rate FiO2 08/29/21 03:34 78 16 143/67 (92) 97 08/28/21 21:09 98.1 Room Air 08/28/21 11:26 2.0 I & O 08/28/21 08/28/21 08/29/21 15:00 23:00 07:00 Intake Total 0 ml 120 ml 140 ml Balance 0 ml 120 ml 140 ml Current Medications: Meds: Current Medications Medications (Trade) Dose Ordered Sig/Fabi Route PRN Reason Start Time Stop Time Status Last Admin Dose Admin Citalopram Hydrobromide (CeleXA) 40 mg DAILY PO 08/26/21 09:00 08/28/21 18:29 DC 08/28/21 09:56 Acetaminophen (Tylenol) 650 mg PRN Q6HRS PRN PO MILD PAIN / TEMP > 100.3'F 08/25/21 19:30 08/25/21 19:36 Acetaminophen (Tylenol Supp) 650 mg PRN Q6HRS PRN [place] MILD PAIN / TEMP > 100.3'F 08/26/21 05:45 08/26/21 05:37 Guaifenesin (Mucinex Er) 600 mg BID PO 08/26/21 09:00 08/28/21 20:04 Methylprednisolone Sodium Succinate (SOLU-Medrol 40MG VIAL) 60 mg BID IV 08/26/21 09:00 08/28/21 20:02 Enoxaparin Sodium (Lovenox 40mg Syringe) 30 mg DAILY SQ 08/26/21 09:00 08/26/21 08:57 DC 08/26/21 08:11 Enoxaparin Sodium (Lovenox 40mg Syringe) 40 mg DAILY SQ 08/27/21 09:00 08/28/21 09:56 Quetiapine Fumarate (SEROquel) 12.5 mg TID PO 08/26/21 14:00 08/28/21 20:03 Mirtazapine (Remeron) 7.5 mg QHS PO 08/26/21 21:00 08/28/21 20:03 Quetiapine Fumarate (SEROquel) 25 mg PRN QHS PRN PO MOOD 08/26/21 12:15 Lorazepam (Ativan Inj) 2 mg PRN Q3HRS PRN IVP ANXIETY / AGITATION 08/27/21 14:15 08/28/21 18:29 DC 08/28/21 10:10 Lorazepam (Ativan) 0.25 mg PRN Q12HR PRN PO ANXIETY / AGITATION 08/28/21 18:30 08/29/21 02:47 Sertraline HCl (Zoloft) 50 mg DAILY PO 08/29/21 09:00 Current Medications Medications (Trade) Dose Ordered Sig/Fabi Route PRN Reason Start Time Stop Time Status Last Admin Dose Admin Lorazepam (Ativan) 0.25 mg PRN Q12HR PRN PO ANXIETY / AGITATION 08/28/21 18:30 08/29/21 02:47 I have reviewed the current psychotropics carefully including drug interactions. Risk benefit ratio favors no change other than as noted in my dictated progress note. Diagnosis: Problems: (1) Impulse control disorder, unspecified (2) Anxiety disorder, unspecified (3) Dementia, vascular, with depression (4) Dementia, vascular, with delusions (5) Dementia in Alzheimer's disease with depression (6) Dementia in Alzheimer's disease with delusions (7) Dementia of the Alzheimer's type with early onset with behavioral disturbance (8) Major neurocognitive disorder CHERRIE LIVE MD Aug 29, 2021 06:44
[2021-08-29] MEDS: SERTRALINE 50 MG TABLET. PO SCH (09:13)
[2021-08-29] MEDS: QUEtiapine 25 MG TABLET. PO SCH ×2 (09:13→13:26)
[2021-08-29] MEDS: ENOXAPARIN 40 MG/0.4 ML SYRINGE. SQ SCH (09:14)
[2021-08-29] MEDS: methylPREDNISolone SOD SUCC PF 40 MG/ML VIAL. IV SCH ×2 (09:14→20:30)
[2021-08-29 12:57] VITALS: BP 138/73
--- NOTE | 2021-08-29 15:30 | NUR ---
Pt presents in a tired manner. Pt is noted to be resting during day shift. Pt is medication compliant. Pt's vitals are WNL. Pt slept 7 hours last night. Pt does not have a good appetite. Pt has been given thickened Gatorade and will continue to be given fluids throughout the shift, as pt allows. Will continue to monitor.
[2021-08-29] MEDS: MIRTAZAPINE 7.5 MG TABLET. PO SCH (20:31)
--- NOTE | 2021-08-29 20:54 | PDOC ---
Exam Note: William Note: Please also refer to the separate dictated note~for this date of service dictated separately.~Patient seen individually. Discussed the patient with Nursing staff reviewed the chart.~Reviewed interim history and current functioning. Reviewed vital signs,~Labs/ Radiology~and current medications noted below. Continue current treatment with the changes noted in the dictated addendum note Assessment: Vital Signs/I&O: Vital Signs Date Time Temp Pulse Resp B/P (MAP) Pulse Ox O2 Delivery O2 Flow Rate FiO2 08/29/21 18:38 97.8 08/29/21 12:57 83 18 138/73 (94) 92 Room Air 08/28/21 11:26 2.0 I & O 0 08/28/21 08/28/21 08/29/21 15:00 23:00 07:00 Intake Total 0 ml 120 ml 140 ml Balance 0 ml 120 ml 140 ml Current Medications: Meds: Current Medications Medications (Trade) Dose Ordered Sig/Fabi Route PRN Reason Start Time Stop Time Status Last Admin Dose Admin Sertraline HCl (Zoloft) 50 mg DAILY PO 08/29/21 09:00 08/29/21 09:13 I have reviewed the current psychotropics carefully including drug interactions. Risk benefit ratio favors no change other than as noted in my dictated progress note. Diagnosis: Problems: (1) Impulse control disorder, unspecified (2) Anxiety disorder, unspecified (3) Dementia, vascular, with depression (4) Dementia, vascular, with delusions (5) Dementia in Alzheimer's disease with depression (6) Dementia in Alzheimer's disease with delusions (7) Dementia of the Alzheimer's type with early onset with behavioral disturbance (8) Major neurocognitive disorder CHERRIE LIVE MD Aug 29, 2021 20:54
[2021-08-30 00:13] VITALS: BP 130/70
--- NOTE | 2021-08-30 05:15 | NUR ---
Nursing Note The patient was less restless this shift. The patient was compliant with medication and took them with pudding. The patient was alert to self only. The patient was able to drink an entire ensure this AM. Patient is currently awake in bed.
[2021-08-30 06:21] VITALS: BP 130/72
[2021-08-30] MEDS: methylPREDNISolone SOD SUCC PF 40 MG/ML VIAL. IV SCH ×2 (09:38→20:07)
[2021-08-30] MEDS: SERTRALINE 50 MG TABLET. PO SCH (09:38)
[2021-08-30] MEDS: ENOXAPARIN 40 MG/0.4 ML SYRINGE. SQ SCH (09:38)
[2021-08-30 11:36] VITALS: BP 140/76
--- NOTE | 2021-08-30 13:01 | NUR ---
Nursing note: Pt was restless after shift change, attempting to get out of bed unassisted and got angry with assistance to the bathroom. Pt eventually complied and walked back to bed with staff assistance x2. He has been sleeping off and on since. He refused to eat breakfast, but was compliant in taking his meds in a bite of pudding. He is currently resting quietly in bed. Will continue to monitor.
[2021-08-30 15:09] VITALS: BP 125/70
--- NOTE | 2021-08-30 19:09 | RAD ---
EXAM: CHEST ONE VIEW. HISTORY: Increased shortness of breath. COMPARISON: 08/26/2021. FINDINGS: A frontal view of the chest is obtained. Patchy bilateral airspace infiltrates are consistent with atypical pneumonia. These are mildly increa sed since the prior study. There is no pneumothorax or pleural effusion. The heart is not enlarged. IMPRESSION: 1. Atypical infiltrates are mildly increased since the prior exam. Electronically signed by: Gabriela Sauceda MD (08/30/2021 7:07 PM) [facility]
[2021-08-30] MEDS: MIRTAZAPINE 7.5 MG TABLET. PO SCH (20:07)
[2021-08-30] MEDS ORDERED: AZITHROMYCIN 500 MG in IV NORMAL SALINE 250ML 250 ML IV ONE (20:30)
--- NOTE | 2021-08-30 21:28 | PDOC ---
Exam Note: William Note: Please also refer to the separate dictated note~for this date of service dictated separately.~Patient seen individually. Discussed the patient with Nursing staff reviewed the chart.~Reviewed interim history and current functioning. Reviewed vital signs,~Labs/ Radiology~and current medications noted below. Continue current treatment with the changes noted in the dictated addendum note Assessment: Vital Signs/I&O: Vital Signs Date Time Temp Pulse Resp B/P (MAP) Pulse Ox O2 Delivery O2 Flow Rate FiO2 08/30/21 15:09 98.6 74 16 125/70 (88) 90 Room Air 08/29/21 22:31 3.0 I & O 08/29/21 08/29/21 08/30/21 15:00 23:00 07:00 Intake Total 320 ml 240 ml 237 ml Balance 320 ml 240 ml 237 ml Current Medications: I have reviewed the current psychotropics carefully including drug interactions. Risk benefit ratio favors no change other than as noted in my dictated progress note. Diagnosis: Problems: (1) Impulse control disorder, unspecified (2) Anxiety disorder, unspecified (3) Dementia, vascular, with depression (4) Dementia, vascular, with delusions (5) Dementia in Alzheimer's disease with depression (6) Dementia in Alzheimer's disease with delusions (7) Dementia of the Alzheimer's type with early onset with behavioral disturbance (8) Major neurocognitive disorder CHERRIE LIVE MD Aug 30, 2021 21:28
[2021-08-30 21:50] VITALS: BP 138/84
[2021-08-31 06:39] VITALS: BP 138/66
--- NOTE | 2021-08-31 06:51 | PDOC ---
Exam Note: William Note: This note is a late entry for 08/29/2021 covers elements not covered in my initial note. Subjective: The patient was seen on telehealth rounds on 08/29/2021 with Amber HOYOS, reviewed the chart. Overall he remains confused, has been quite sedated despite not receiving any further Ativan p.r.n. He did get 2 mg yesterday and we have since reduced it p.r.n. significantly. We will go ahead and stop Seroquel 12.5 mg t.i.d. to help reduce the sedation and if behavioral dyscontrol resurfaces, we will reassess this. Review of Systems: No CV, , eye, ENT system symptoms on review. Reliability poor. Mental Status Exam: The patient is oriented to himself. Insight and judgment, recent and remote memory, attention and concentration, fund of knowledge is poor consistent with his diagnoses. Laboratory Data: Reviewed. Impression: Major neurocognitive disorder, Alzheimer, vascular with delusion, depression behavioral disturbance. Anxiety disorder unspecified. Impulse control disorder unspecified. Plan: Continue current psychotropics but stop the Seroquel as noted. Reviewed drug interactions risk-benefit ratio favors no further change at this time. Assessment: Vital Signs/I&O: Vital Signs Date Time Temp Pulse Resp B/P (MAP) Pulse Ox O2 Delivery O2 Flow Rate FiO2 08/31/21 06:39 98.5 66 18 138/66 (90) 92 08/31/21 02:04 Room Air 3.0 I & O 08/30/21 08/30/21 08/31/21 14:59 22:59 06:59 Intake Total 0 ml 350 ml Balance 0 ml 350 ml Current Medications: Meds: Current Medications Medications (Trade) Dose Ordered Sig/Fabi Route PRN Reason Start Time Stop Time Status Last Admin Dose Admin Citalopram Hydrobromide (CeleXA) 40 mg DAILY PO 08/26/21 09:00 08/28/21 18:29 DC 08/28/21 09:56 Acetaminophen (Tylenol) 650 mg PRN Q6HRS PRN PO MILD PAIN / TEMP > 100.3'F 08/25/21 19:30 08/25/21 19:36 Acetaminophen (Tylenol Supp) 650 mg PRN Q6HRS PRN [place] MILD PAIN / TEMP > 100.3'F 08/26/21 05:45 08/26/21 05:37 Guaifenesin (Mucinex Er) 600 mg BID PO 08/26/21 09:00 08/30/21 09:38 Methylprednisolone Sodium Succinate (SOLU-Medrol 40MG VIAL) 60 mg BID IV 08/26/21 09:00 08/30/21 20:07 Enoxaparin Sodium (Lovenox 40mg Syringe) 30 mg DAILY SQ 08/26/21 09:00 08/26/21 08:57 DC 08/26/21 08:11 Enoxaparin Sodium (Lovenox 40mg Syringe) 40 mg DAILY SQ 08/27/21 09:00 08/30/21 09:38 Quetiapine Fumarate (SEROquel) 12.5 mg TID PO 08/26/21 14:00 08/29/21 17:18 DC 08/29/21 13:26 Mirtazapine (Remeron) 7.5 mg QHS PO 08/26/21 21:00 08/30/21 20:07 Quetiapine Fumarate (SEROquel) 25 mg PRN QHS PRN PO MOOD 08/26/21 12:15 Lorazepam (Ativan Inj) 2 mg PRN Q3HRS PRN IVP ANXIETY / AGITATION 08/27/21 14:15 08/28/21 18:29 DC 08/28/21 10:10 Lorazepam (Ativan) 0.25 mg PRN Q12HR PRN PO ANXIETY / AGITATION 08/28/21 18:30 08/29/21 02:47 Sertraline HCl (Zoloft) 50 mg DAILY PO 08/29/21 09:00 08/30/21 09:38 Azithromycin 500 mg/Sodium Chloride 250 ml @ 250 mls/hr 1X ONCE IV 08/30/21 20:30 08/30/21 21:29 DC 08/30/21 22:42 Ceftriaxone Sodium 1 gm/ Sodium Chloride 50 ml @ 100 mls/hr Q24H IV 08/30/21 20:00 08/30/21 22:01 Current Medications Medications (Trade) Dose Ordered Sig/Fabi Route PRN Reason Start Time Stop Time Status Last Admin Dose Admin Azithromycin 500 mg/Sodium Chloride 250 ml @ 250 mls/hr 1X ONCE IV 08/30/21 20:30 08/30/21 21:29 DC 08/30/21 22:42 Ceftriaxone Sodium 1 gm/ Sodium Chloride 50 ml @ 100 mls/hr Q24H IV 08/30/21 20:00 08/30/21 22:01 I have reviewed the current psychotropics carefully including drug interactions. Risk benefit ratio favors no change other than as noted in my dictated progress note. 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
[2021-08-31 07:08] LABS: BASO % 0 % (0-3); EOS % 0 % (0-3); HEMOGLOBIN 15.8 g/dL (13.0-17.5); LYMPH # 0.6 x10^3/uL (1.0-4.8); LYMPH % 5 % (24-48); MEAN CORPUSCULAR HEMOGLOBIN 30 pg (25-35); MEAN CORPUSCULAR HGB CONC 33 g/dL (31-37); MEAN CORPUSCULAR VOLUME 92 fL (79-100); MONO # 0.7 x10^3/uL (0.0-1.1); MONO % 6 % (0-9); NEUT # 10.3 x10^3uL (1.8-7.7); NEUT % 89 % (31-73); PLATELET COUNT 312 x10^3/uL (140-400); RED BLOOD COUNT 5.23 x10^6/uL (4.30-5.70); RED CELL DISTRIBUTION WIDTH 13.4 % (11.5-14.5); WHITE BLOOD COUNT 11.6 x10^3/uL (4.0-11.0)
[2021-08-31 07:22] LABS: ALBUMIN/GLOBULIN RATIO 0.8 (1.0-1.7); CALCIUM 8.8 mg/dL (8.5-10.1); CREATININE 1.3 mg/dL (0.7-1.3); GFR 54.4; POTASSIUM 4.5 mmol/L (3.5-5.1); TOTAL BILIRUBIN 0.4 mg/dL (0.2-1.0); TOTAL PROTEIN 6.8 g/dL (6.4-8.2)
[2021-08-31 07:53] LABS: % LYMPHS 4 % (24-48); % MONOS 7 % (0-10); % SEGS 89 % (35-66); PLT ESTIMATE ADEQUATE (ADEQUATE)
[2021-08-31] MEDS: methylPREDNISolone SOD SUCC PF 40 MG/ML VIAL. IV SCH ×2 (08:36→20:01)
[2021-08-31] MEDS: SERTRALINE 50 MG TABLET. PO SCH (08:37)
[2021-08-31] MEDS: ENOXAPARIN 40 MG/0.4 ML SYRINGE. SQ SCH (08:37)
--- NOTE | 2021-08-31 10:13 | NUR ---
Nursing note: Pt in bed watching TV and eating breakfast at time of AM med pass and assessment. He is more alert than he was yesterday and able to feed himself his toast. He is compliant with his meds crushed in pudding and tolerates his lovenox well. Fluids will continue to be encouraged while pt is awake. He is currently sitting in bed watching TV. Will continue to monitor.
[2021-08-31 12:38] VITALS: BP 113/67
[2021-08-31] MEDS: LORazepam 0.5 MG TABLET PO PRN (12:59)
--- NOTE | 2021-08-31 15:00 | NUR ---
Nursing note: Pt has been very restless and difficult to redirect. He was attempting to get out of bed unassisted and getting aggressive with redirection. He is paranoid and believes his empty styrofoam cup is a "bomb" and says "those 2 boys over there are going to kill us all". Pt unable to be redirected. PRN provided at that time with little effect. Activity therapy attempted to sit with pt and play music, but he was unwilling to listen to music. Pt then stood in his room with activity therapy for a while, looking out the window and talking about the school across the street. Pt then wanted to walk around. I walked with him up and down the hallway and allowed him to reminisce on his high school days and pt kept stating there were "horses outside running by the religion". After walking for quite some time, it was suggested to pt that he rest in his bed for a little bit and then we could walk again later. Pt eventually complied, but was getting back out of bed after 5 minutes of resting. Staff sitting with pt to keep him relaxed. Will continue to monitor.
[2021-08-31 15:44] VITALS: BP 130/74
[2021-08-31] MEDS ORDERED: QUEtiapine 25 MG TABLET. PO ONE (16:45)
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
[2021-08-31] MEDS: QUEtiapine 25 MG TABLET. PO SCH (17:47)
--- NOTE | 2021-08-31 18:45 | NUR ---
Nursing note: Pt continues to be restless and combative towards staff. Pt very unsteady on his feet so unable to walk on his own. Pt cursing and yelling at staff, grabbing, scratching and kicking staff. PRN attempted to be given floated in pudding, but pt spit it out. PRN pulled and given sublingually with staff x2 assist. Will continue to monitor.
[2021-08-31] MEDS: guaiFENesin 300 MG/15 ML LIQUID PO SCH (19:59)
[2021-08-31] MEDS: QUEtiapine 25 MG TABLET. PO PRN (19:59)
[2021-08-31] MEDS: MIRTAZAPINE 7.5 MG TABLET. PO SCH (19:59)
--- NOTE | 2021-08-31 21:13 | PDOC ---
Exam Note: William Note: Please also refer to the separate dictated note~for this date of service dictated separately.~Patient seen individually. Discussed the patient with Nursing staff reviewed the chart.~Reviewed interim history and current functioning. Reviewed vital signs,~Labs/ Radiology~and current medications noted below. Continue current treatment with the changes noted in the dictated addendum note Assessment: Vital Signs/I&O: Vital Signs Date Time Temp Pulse Resp B/P (MAP) Pulse Ox O2 Delivery O2 Flow Rate FiO2 08/31/21 15:44 97.8 89 18 130/74 (92) 94 08/31/21 08:00 Room Air 08/31/21 02:04 3.0 I & O 0 08/30/21 08/30/21 08/31/21 15:00 23:00 07:00 Intake Total 0 ml 350 ml Balance 0 ml 350 ml Labs: Laboratory Tests Test 08/31/21 06:35 White Blood Count 11.6 x10^3/uL (4.0-11.0) H Red Blood Count 5.23 x10^6/uL (4.30-5.70) Hemoglobin 15.8 g/dL (13.0-17.5) Hematocrit 48.0 % (39.0-53.0) Mean Corpuscular Volume 92 fL (79-100) Mean Corpuscular Hemoglobin 30 pg (25-35) Mean Corpuscular Hemoglobin Concent 33 g/dL (31-37) Red Cell Distribution Width 13.4 % (11.5-14.5) Platelet Count 312 x10^3/uL (140-400) Neutrophils (%) (Auto) 89 % (31-73) H Lymphocytes (%) (Auto) 5 % (24-48) L Monocytes (%) (Auto) 6 % (0-9) Eosinophils (%) (Auto) 0 % (0-3) Basophils (%) (Auto) 0 % (0-3) Neutrophils # (Auto) 10.3 x10^3uL (1.8-7.7) H Lymphocytes # (Auto) 0.6 x10^3/uL (1.0-4.8) L Monocytes # (Auto) 0.7 x10^3/uL (0.0-1.1) Eosinophils # (Auto) 0.0 x10^3/uL (0.0-0.7) Basophils # (Auto) 0.0 x10^3/uL (0.0-0.2) Segmented Neutrophils % 89 % (35-66) H Lymphocytes % 4 % (24-48) L Monocytes % 7 % (0-10) Platelet Estimate Adequate (ADEQUATE) Sodium Level 145 mmol/L (136-145) Potassium Level 4.5 mmol/L (3.5-5.1) Chloride Level 105 mmol/L (98-107) Carbon Dioxide Level 31 mmol/L (21-32) Anion Gap 9 (6-14) Blood Urea Nitrogen 36 mg/dL (8-26) H Creatinine 1.3 mg/dL (0.7-1.3) Estimated GFR (Cockcroft-Gault) 54.4 BUN/Creatinine Ratio 28 (6-20) H Glucose Level 135 mg/dL (70-99) H Calcium Level 8.8 mg/dL (8.5-10.1) Total Bilirubin 0.4 mg/dL (0.2-1.0) Aspartate Amino Transferase (AST) 32 U/L (15-37) Alanine Aminotransferase (ALT) 52 U/L (16-63) Alkaline Phosphatase 63 U/L (46-116) Total Protein 6.8 g/dL (6.4-8.2) Albumin 3.0 g/dL (3.4-5.0) L Albumin/Globulin Ratio 0.8 (1.0-1.7) L Current Medications: Meds: Laboratory Tests Test 08/31/21 06:35 White Blood Count 11.6 x10^3/uL Red Blood Count 5.23 x10^6/uL Hemoglobin 15.8 g/dL Hematocrit 48.0 % Mean Corpuscular Volume 92 fL Mean Corpuscular Hemoglobin 30 pg Mean Corpuscular Hemoglobin Concent 33 g/dL Red Cell Distribution Width 13.4 % Platelet Count 312 x10^3/uL Neutrophils (%) (Auto) 89 % Lymphocytes (%) (Auto) 5 % Monocytes (%) (Auto) 6 % Eosinophils (%) (Auto) 0 % Basophils (%) (Auto) 0 % Neutrophils # (Auto) 10.3 x10^3uL Lymphocytes # (Auto) 0.6 x10^3/uL Monocytes # (Auto) 0.7 x10^3/uL Eosinophils # (Auto) 0.0 x10^3/uL Basophils # (Auto) 0.0 x10^3/uL Segmented Neutrophils % 89 % Lymphocytes % 4 % Monocytes % 7 % Platelet Estimate Adequate Sodium Level 145 mmol/L Potassium Level 4.5 mmol/L Chloride Level 105 mmol/L Carbon Dioxide Level 31 mmol/L Anion Gap 9 Blood Urea Nitrogen 36 mg/dL Creatinine 1.3 mg/dL Estimated GFR (Cockcroft-Gault) 54.4 BUN/Creatinine Ratio 28 Glucose Level 135 mg/dL Calcium Level 8.8 mg/dL Total Bilirubin 0.4 mg/dL Aspartate Amino Transf (AST/SGOT) 32 U/L Alanine Aminotransferase (ALT/SGPT) 52 U/L Alkaline Phosphatase 63 U/L Total Protein 6.8 g/dL Albumin 3.0 g/dL Albumin/Globulin Ratio 0.8 Current Medications Medications (Trade) Dose Ordered Sig/Fabi Route PRN Reason Start Time Stop Time Status Last Admin Dose Admin Citalopram Hydrobromide (CeleXA) 40 mg DAILY PO 08/26/21 09:00 08/28/21 18:29 DC 08/28/21 09:56 Acetaminophen (Tylenol) 650 mg PRN Q6HRS PRN PO MILD PAIN / TEMP > 100.3'F 08/25/21 19:30 08/25/21 19:36 Acetaminophen (Tylenol Supp) 650 mg PRN Q6HRS PRN IL MILD PAIN / TEMP > 100.3'F 08/26/21 05:45 08/26/21 05:37 Guaifenesin (Mucinex Er) 600 mg BID PO 08/26/21 09:00 08/31/21 15:52 DC 08/30/21 09:38 Methylprednisolone Sodium Succinate (SOLU-Medrol 40MG VIAL) 60 mg BID IV 08/26/21 09:00 08/31/21 20:01 Enoxaparin Sodium (Lovenox 40mg Syringe) 30 mg DAILY SQ 08/26/21 09:00 08/26/21 08:57 DC 08/26/21 08:11 Enoxaparin Sodium (Lovenox 40mg Syringe) 40 mg DAILY SQ 08/27/21 09:00 08/31/21 08:37 Quetiapine Fumarate (SEROquel) 12.5 mg TID PO 08/26/21 14:00 08/29/21 17:18 DC 08/29/21 13:26 Mirtazapine (Remeron) 7.5 mg QHS PO 08/26/21 21:00 08/31/21 19:59 Quetiapine Fumarate (SEROquel) 25 mg PRN QHS PRN PO MOOD 08/26/21 12:15 08/31/21 19:59 Lorazepam (Ativan Inj) 2 mg PRN Q3HRS PRN IVP ANXIETY / AGITATION 08/27/21 14:15 08/28/21 18:29 DC 08/28/21 10:10 Lorazepam (Ativan) 0.25 mg PRN Q12HR PRN PO ANXIETY / AGITATION 08/28/21 18:30 08/31/21 12:59 Sertraline HCl (Zoloft) 50 mg DAILY PO 08/29/21 09:00 08/31/21 08:37 Azithromycin 500 mg/Sodium Chloride 250 ml @ 250 mls/hr 1X ONCE IV 08/30/21 20:30 08/30/21 21:29 DC 08/30/21 22:42 Ceftriaxone Sodium 1 gm/ Sodium Chloride 50 ml @ 100 mls/hr Q24H IV 08/30/21 20:00 08/31/21 20:00 Azithromycin (Zithromax) 250 mg DAILY PO 09/01/21 09:00 09/04/21 21:00 Guaifenesin (Robitussin) 600 mg BID PO 08/31/21 21:00 08/31/21 19:59 Quetiapine Fumarate (SEROquel) 12.5 mg 0900,1300,1700 PO 08/31/21 17:00 08/31/21 17:47 Quetiapine Fumarate (SEROquel) 25 mg 1X ONCE PO 08/31/21 16:45 08/31/21 16:46 DC 08/31/21 16:57 Olanzapine (ZyPREXA ZYDIS) 2.5 mg PRN Q2HR PRN PO PSYCHOSIS 08/31/21 16:45 08/31/21 18:44 Current Medications Medications (Trade) Dose Ordered Sig/Fabi Route PRN Reason Start Time Stop Time Status Last Admin Dose Admin Guaifenesin (Robitussin) 600 mg BID PO 08/31/21 21:00 08/31/21 19:59 Quetiapine Fumarate (SEROquel) 12.5 mg 0900,1300,1700 PO 08/31/21 17:00 08/31/21 17:47 Quetiapine Fumarate (SEROquel) 25 mg 1X ONCE PO 08/31/21 16:45 08/31/21 16:46 DC 08/31/21 16:57 Olanzapine (ZyPREXA ZYDIS) 2.5 mg PRN Q2HR PRN PO PSYCHOSIS 08/31/21 16:45 08/31/21 18:44 I have reviewed the current psychotropics carefully including drug interactions. Risk benefit ratio favors no change other than as noted in my dictated progress note. Diagnosis: Problems: (1) Impulse control disorder, unspecified (2) Anxiety disorder, unspecified (3) Dementia, vascular, with depression (4) Dementia, vascular, with delusions (5) Dementia in Alzheimer's disease with depression (6) Dementia in Alzheimer's disease with delusions (7) Dementia of the Alzheimer's type with early onset with behavioral disturbance (8) Major neurocognitive disorder CHERRIE LIVE MD Aug 31, 2021 21:13
--- NOTE | 2021-08-31 23:59 | NUR ---
Patient is ambulating in and out of his room on assumption of care. Alert to self only. Unsteady on his feet. Disorganized, restless, confused, irritable and difficult to redirect this evening. Cursing, attempting to pinch staff when physically redirected. Asked several times, "Why are you trying to kill me?" Compliant with meds crushed in chocolate pudding. PRN Seroquel given with HS meds, with good effect. Patient appears to be sleeping comfortably at present time. He does not appear to be experiencing any pain or discomfort so far this shift. Will continue to monitor.
[2021-09-01 06:36] VITALS: BP 117/66
--- NOTE | 2021-09-01 07:20 | PDOC ---
Exam Note: William Note: This note is a late entry for 08/30/2021 covers elements not covered in my initial note. Subjective: The patient was seen on telehealth rounds on 08/30/2021 with Dee HOYOS, discussed and reviewed the chart. He did well previous night. He had some fever at 11 a.m. on 08/30. He is somewhat drowsy in the morning, refused to eat, was coughing. Chest x-ray will be repeated in the morning along with labs per Dr. Bruner. He remains intermittent agitated in the morning, out of bed, unassisted and is a fall risk. He is repeatedly making statements Im sorry and he was repeating this to me during the telehealth rounds as well. It is unclear what this refers to and he is unable to explain it. Review of Systems: Ambulation impaired. No CV, , eye, ENT system symptoms on review. Reliability poor. Mental Status Exam: The patient is oriented to himself. Insight and judgment, recent and remote memory, attention and concentration, fund of knowledge is poor consistent with his diagnoses. Laboratory Data: Reviewed. Impression: Major neurocognitive disorder, Alzheimer, vascular with delusion, depression behavioral disturbance. Anxiety disorder unspecified. Impulse control disorder unspecified. Plan: Continue current psychotropics. We have stopped his Seroquel and the Ativan has been reduced significantly. He has not been started on Zoloft. We will monitor the dosage. Adjust as clinically indicated. Assessment: Vital Signs/I&O: Vital Signs Date Time Temp Pulse Resp B/P (MAP) Pulse Ox O2 Delivery O2 Flow Rate FiO2 09/01/21 06:36 98.3 71 16 117/66 (83) 95 08/31/21 20:00 Room Air 08/31/21 02:04 3.0 I & O 08/31/21 08/31/21 09/01/21 15:00 23:00 07:00 Intake Total 680 ml 240 ml Balance 680 ml 240 ml Current Medications: Meds: Current Medications Medications (Trade) Dose Ordered Sig/Fabi Route PRN Reason Start Time Stop Time Status Last Admin Dose Admin Guaifenesin (Robitussin) 600 mg BID PO 08/31/21 21:00 08/31/21 19:59 Quetiapine Fumarate (SEROquel) 12.5 mg 0900,1300,1700 PO 08/31/21 17:00 08/31/21 17:47 Quetiapine Fumarate (SEROquel) 25 mg 1X ONCE PO 08/31/21 16:45 08/31/21 16:46 DC 08/31/21 16:57 Olanzapine (ZyPREXA ZYDIS) 2.5 mg PRN Q2HR PRN PO PSYCHOSIS 08/31/21 16:45 08/31/21 18:44 I have reviewed the current psychotropics carefully including drug interactions. Risk benefit ratio favors no change other than as noted in my dictated progress note. Diagnosis: Problems: (1) Impulse control disorder, unspecified (2) Anxiety disorder, unspecified (3) Dementia, vascular, with depression (4) Dementia, vascular, with delusions (5) Dementia in Alzheimer's disease with depression (6) Dementia in Alzheimer's disease with delusions (7) Dementia of the Alzheimer's type with early onset with behavioral disturbance (8) Major neurocognitive disorder CHERRIE LIVE MD Sep 01, 2021 07:20
[2021-09-01] MEDS: guaiFENesin 300 MG/15 ML LIQUID PO SCH ×2 (07:30→19:18)
[2021-09-01] MEDS: SERTRALINE 50 MG TABLET. PO SCH (07:31)
[2021-09-01] MEDS: methylPREDNISolone SOD SUCC PF 40 MG/ML VIAL. IV SCH ×2 (07:31→19:19)
[2021-09-01] MEDS: QUEtiapine 25 MG TABLET. PO SCH ×3 (07:31→17:00)
[2021-09-01] MEDS: ENOXAPARIN 40 MG/0.4 ML SYRINGE. SQ SCH (07:32)
[2021-09-01] MEDS: AZITHROMYCIN 250 MG TABLET. PO SCH (07:37)
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
[2021-09-01 12:44] VITALS: BP 123/67
--- NOTE | 2021-09-01 17:56 | NUR ---
Pt slept thru breakfast but was up in bed for lunch and dinner. Wandered in room for a short while in afternoon. Pt incontinent and assisted to BR. Compliant with meds and cares. Pt pulled out IV during supper. Will replace.
[2021-09-01] MEDS: QUEtiapine 25 MG TABLET. PO PRN (19:18)
[2021-09-01] MEDS: MIRTAZAPINE 7.5 MG TABLET. PO SCH (19:18)
[2021-09-01] MEDS: LACTOBACILLUS RHAMNOSUS GG 1 CAPSULE. PO SCH (19:20)
--- NOTE | 2021-09-01 21:26 | PDOC ---
Exam Note: William Note: Please also refer to the separate dictated note~for this date of service dictated separately.~Patient seen individually. Discussed the patient with Nursing staff reviewed the chart.~Reviewed interim history and current functioning. Reviewed vital signs,~Labs/ Radiology~and current medications noted below. Continue current treatment with the changes noted in the dictated addendum note Assessment: Vital Signs/I&O: Vital Signs Date Time Temp Pulse Resp B/P (MAP) Pulse Ox O2 Delivery O2 Flow Rate FiO2 09/01/21 17:21 Room Air 09/01/21 12:44 97.1 94 16 123/67 (85) 94 08/31/21 02:04 3.0 I & O 0 08/31/21 08/31/21 09/01/21 15:00 23:00 07:00 Intake Total 680 ml 240 ml Balance 680 ml 240 ml Current Medications: Meds: Current Medications Medications (Trade) Dose Ordered Sig/Fabi Route PRN Reason Start Time Stop Time Status Last Admin Dose Admin Citalopram Hydrobromide (CeleXA) 40 mg DAILY PO 08/26/21 09:00 08/28/21 18:29 DC 08/28/21 09:56 Acetaminophen (Tylenol) 650 mg PRN Q6HRS PRN PO MILD PAIN / TEMP > 100.3'F 08/25/21 19:30 08/25/21 19:36 Acetaminophen (Tylenol Supp) 650 mg PRN Q6HRS PRN [place] MILD PAIN / TEMP > 100.3'F 08/26/21 05:45 08/26/21 05:37 Guaifenesin (Mucinex Er) 600 mg BID PO 08/26/21 09:00 08/31/21 15:52 DC 08/30/21 09:38 Methylprednisolone Sodium Succinate (SOLU-Medrol 40MG VIAL) 60 mg BID IV 08/26/21 09:00 09/01/21 19:19 Enoxaparin Sodium (Lovenox 40mg Syringe) 30 mg DAILY SQ 08/26/21 09:00 08/26/21 08:57 DC 08/26/21 08:11 Enoxaparin Sodium (Lovenox 40mg Syringe) 40 mg DAILY SQ 08/27/21 09:00 09/01/21 07:32 Quetiapine Fumarate (SEROquel) 12.5 mg TID PO 08/26/21 14:00 08/29/21 17:18 DC 08/29/21 13:26 Mirtazapine (Remeron) 7.5 mg QHS PO 08/26/21 21:00 09/01/21 19:18 Quetiapine Fumarate (SEROquel) 25 mg PRN QHS PRN PO MOOD 08/26/21 12:15 09/01/21 19:18 Lorazepam (Ativan Inj) 2 mg PRN Q3HRS PRN IVP ANXIETY / AGITATION 08/27/21 14:15 08/28/21 18:29 DC 08/28/21 10:10 Lorazepam (Ativan) 0.25 mg PRN Q12HR PRN PO ANXIETY / AGITATION 08/28/21 18:30 08/31/21 12:59 Sertraline HCl (Zoloft) 50 mg DAILY PO 08/29/21 09:00 09/01/21 07:31 Azithromycin 500 mg/Sodium Chloride 250 ml @ 250 mls/hr 1X ONCE IV 08/30/21 20:30 08/30/21 21:29 DC 08/30/21 22:42 Ceftriaxone Sodium 1 gm/ Sodium Chloride 50 ml @ 100 mls/hr Q24H IV 08/30/21 20:00 09/01/21 19:20 Azithromycin (Zithromax) 250 mg DAILY PO 09/01/21 09:00 09/04/21 21:00 09/01/21 07:37 Guaifenesin (Robitussin) 600 mg BID PO 08/31/21 21:00 09/01/21 19:18 Quetiapine Fumarate (SEROquel) 12.5 mg 0900,1300,1700 PO 08/31/21 17:00 09/01/21 17:00 Quetiapine Fumarate (SEROquel) 25 mg 1X ONCE PO 08/31/21 16:45 08/31/21 16:46 DC 08/31/21 16:57 Olanzapine (ZyPREXA ZYDIS) 2.5 mg PRN Q2HR PRN PO PSYCHOSIS 08/31/21 16:45 09/01/21 21:08 Lactobacillus Rhamnosus (Culturelle) 1 cap BID PO 09/01/21 21:00 09/01/21 19:20 Current Medications Medications (Trade) Dose Ordered Sig/Fabi Route PRN Reason Start Time Stop Time Status Last Admin Dose Admin Azithromycin (Zithromax) 250 mg DAILY PO 09/01/21 09:00 09/04/21 21:00 09/01/21 07:37 Lactobacillus Rhamnosus (Culturelle) 1 cap BID PO 09/01/21 21:00 09/01/21 19:20 I have reviewed the current psychotropics carefully including drug interactions. Risk benefit ratio favors no change other than as noted in my dictated progress note. Diagnosis: Problems: (1) Impulse control disorder, unspecified (2) Anxiety disorder, unspecified (3) Dementia, vascular, with depression (4) Dementia, vascular, with delusions (5) Dementia in Alzheimer's disease with depression (6) Dementia in Alzheimer's disease with delusions (7) Dementia of the Alzheimer's type with early onset with behavioral disturbance (8) Major neurocognitive disorder CHERRIE LIVE MD Sep 01, 2021 21:26
--- NOTE | 2021-09-01 23:35 | NUR ---
Pt located in his room this evening. Pt very restless and attempting to climb out of bed setting off bed alarm. Pt's gait is unsteady. Pt appears to be hallucinating as he is reaching for items on the floor that are not there. Pt compliant with crushed medications. PRN Seroquel administered with HS medications. Pt continued to be restless and impulsive. PRN Zyprexa administered at 2109. Pt currently laying in bed sleeping on/off.
[2021-09-02 05:27] VITALS: BP 141/67
--- NOTE | 2021-09-02 07:36 | PN ---
DATE: 09/01/2021 SUBJECTIVE: The patient is a 71-year-old male patient who was transferred from [facility] as he tested positive for coronavirus although and was basically noted by the nursing staff to be hypoxic and has recurrent bouts of cough. We did actually repeat his lab work and showed his white cell count was slightly elevated at 11,600. His chemistry was mostly unremarkable and his chest x-ray done showed that he has patchy bilateral airspace infiltrate, are consistent with atypical pneumonia. They are mildly increased since the prior study. There is no pneumothorax, pleural effusion. The heart size is not enlarged. The patient was started on IV antibiotic in the form of ceftriaxone as well as Zithromax, methylprednisolone as well as Lovenox. PHYSICAL EXAMINATION: GENERAL: When I saw him today, he looked well and was clearly in no apparent respiratory distress. He was resting slightly propped up in bed, in no apparent distress. There is no pallor, jaundice, cyanosis, or thyromegaly. No jugular venous distention. No limb edema. VITAL SIGNS: His heart rate was 94, blood pressure was 123/67, temperature 97.2, respiratory rate was 16, and oxygen saturation was 94% on 3 liters of oxygen by nasal cannula. HEAD, EYES, EARS, NOSE, AND THROAT: Normocephalic, atraumatic. NECK: Supple. HEART: Showed normal first and second heart sounds. No gallop, rub, or murmur. CHEST: Clear to auscultation, no crepitation or rhonchi. ABDOMEN: Slightly distended, soft, nontender. NEUROLOGIC: He is demented, but without any obvious lateralizing sign. ASSESSMENT: 1. The patient has COVID-19 pneumonia for which we will continue his antibiotics, Solu-Medrol as well as Lovenox. 2. The patient has underlying chronic obstructive pulmonary disease. 3. Chronic hypoxic respiratory failure requiring oxygen. 4. Dementia with agitation. The patient continued to be extremely restless. PLAN: To continue with IV antibiotic. Continue with steroids and Lovenox. Continue with his psychotropic medication. ERICKA/CANDELARIO/MED DR: Godfrey TID: [id number]
[2021-09-02] MEDS: AZITHROMYCIN 250 MG TABLET. PO SCH (07:54)
[2021-09-02] MEDS: QUEtiapine 25 MG TABLET. PO SCH ×3 (07:54→17:08)
[2021-09-02] MEDS: SERTRALINE 50 MG TABLET. PO SCH (07:55)
[2021-09-02] MEDS: LACTOBACILLUS RHAMNOSUS GG 1 CAPSULE. PO SCH ×2 (07:55→19:42)
[2021-09-02] MEDS: guaiFENesin 300 MG/15 ML LIQUID PO SCH ×2 (07:55→19:42)
[2021-09-02] MEDS: methylPREDNISolone SOD SUCC PF 40 MG/ML VIAL. IV SCH ×2 (07:56→19:42)
[2021-09-02] MEDS: ENOXAPARIN 40 MG/0.4 ML SYRINGE. SQ SCH (07:57)
--- NOTE | 2021-09-02 10:42 | NUR ---
Pt has been awake all morning and has made multiple attempts to exit room and wander about the unit. He is receptive to redirection back into his room. Pt has been provided with tv, magazines, articles of clothing to fold, and tissue boxes in an effort to keep mind and attention occupied. IV in L FA flushed and patent, dressing CDI. He remains very confused and disorganized, A&O to self only. He is compliant with medications crushed and mixed in pudding. He continues to have a moist nonproductive cough. He denies pain when asked. Plan of care continues, will pass to next shift.
[2021-09-02 11:22] VITALS: BP 139/76
[2021-09-02] MEDS: LORazepam 0.5 MG TABLET PO PRN ×2 (12:45→20:07)
--- NOTE | 2021-09-02 12:45 | NUR ---
Pt increasing in impulsivity and agitation. He continues to walk out of his room and is not receptive to multiple staff redirecting him to his room. He was even discovered to be wandering into another patient's room. PRN Ativan administered.
[2021-09-02] MEDS ORDERED: LORazepam 0.5 MG TABLET PO PRN (13:00)
[2021-09-02] MEDS: MIRTAZAPINE 7.5 MG TABLET. PO SCH (19:42)
--- NOTE | 2021-09-02 21:34 | PDOC ---
Exam Note: William Note: Please also refer to the separate dictated note~for this date of service dictated separately.~Patient seen individually. Discussed the patient with Nursing staff reviewed the chart.~Reviewed interim history and current functioning. Reviewed vital signs,~Labs/ Radiology~and current medications noted below. Continue current treatment with the changes noted in the dictated addendum note Assessment: Vital Signs/I&O: Vital Signs Date Time Temp Pulse Resp B/P (MAP) Pulse Ox O2 Delivery O2 Flow Rate FiO2 09/02/21 18:00 Room Air 09/02/21 11:22 97.5 18 139/76 (97) 09/02/21 05:27 70 94 08/31/21 02:04 3.0 I & O 09/01/21 09/01/21 09/02/21 15:00 23:00 07:00 Intake Total 360 ml 360 ml Balance 360 ml 360 ml Current Medications: Meds: Current Medications Medications (Trade) Dose Ordered Sig/Fabi Route PRN Reason Start Time Stop Time Status Last Admin Dose Admin Citalopram Hydrobromide (CeleXA) 40 mg DAILY PO 08/26/21 09:00 08/28/21 18:29 DC 08/28/21 09:56 Acetaminophen (Tylenol) 650 mg PRN Q6HRS PRN PO MILD PAIN / TEMP > 100.3'F 08/25/21 19:30 08/25/21 19:36 Acetaminophen (Tylenol Supp) 650 mg PRN Q6HRS PRN NE MILD PAIN / TEMP > 100.3'F 08/26/21 05:45 08/26/21 05:37 Guaifenesin (Mucinex Er) 600 mg BID PO 08/26/21 09:00 08/31/21 15:52 DC 08/30/21 09:38 Methylprednisolone Sodium Succinate (SOLU-Medrol 40MG VIAL) 60 mg BID IV 08/26/21 09:00 09/02/21 19:42 Enoxaparin Sodium (Lovenox 40mg Syringe) 30 mg DAILY SQ 08/26/21 09:00 08/26/21 08:57 DC 08/26/21 08:11 Enoxaparin Sodium (Lovenox 40mg Syringe) 40 mg DAILY SQ 08/27/21 09:00 09/02/21 07:57 Quetiapine Fumarate (SEROquel) 12.5 mg TID PO 08/26/21 14:00 08/29/21 17:18 DC 08/29/21 13:26 Mirtazapine (Remeron) 7.5 mg QHS PO 08/26/21 21:00 09/02/21 19:42 Quetiapine Fumarate (SEROquel) 25 mg PRN QHS PRN PO MOOD 08/26/21 12:15 09/01/21 19:18 Lorazepam (Ativan Inj) 2 mg PRN Q3HRS PRN IVP ANXIETY / AGITATION 08/27/21 14:15 08/28/21 18:29 DC 08/28/21 10:10 Lorazepam (Ativan) 0.25 mg PRN Q12HR PRN PO ANXIETY / AGITATION 08/28/21 18:30 09/02/21 20:07 Sertraline HCl (Zoloft) 50 mg DAILY PO 08/29/21 09:00 09/02/21 07:55 Azithromycin 500 mg/Sodium Chloride 250 ml @ 250 mls/hr 1X ONCE IV 08/30/21 20:30 08/30/21 21:29 DC 08/30/21 22:42 Ceftriaxone Sodium 1 gm/ Sodium Chloride 50 ml @ 100 mls/hr Q24H IV 08/30/21 20:00 09/02/21 19:43 Azithromycin (Zithromax) 250 mg DAILY PO 09/01/21 09:00 09/04/21 21:00 09/02/21 07:54 Guaifenesin (Robitussin) 600 mg BID PO 08/31/21 21:00 09/02/21 19:42 Quetiapine Fumarate (SEROquel) 12.5 mg 0900,1300,1700 PO 08/31/21 17:00 09/02/21 19:07 DC 09/02/21 17:08 Quetiapine Fumarate (SEROquel) 25 mg 1X ONCE PO 08/31/21 16:45 08/31/21 16:46 DC 08/31/21 16:57 Olanzapine (ZyPREXA ZYDIS) 2.5 mg PRN Q2HR PRN PO PSYCHOSIS 08/31/21 16:45 09/02/21 20:07 Lactobacillus Rhamnosus (Culturelle) 1 cap BID PO 09/01/21 21:00 09/02/21 19:42 Lorazepam (Ativan) 0.5 mg ONCE PRN PO ANXIETY / AGITATION 09/02/21 13:00 09/02/21 12:54 Quetiapine Fumarate (SEROquel) 12.5 mg 1300 PO 09/03/21 13:00 Quetiapine Fumarate (SEROquel) 25 mg 0900,1700 PO 09/03/21 09:00 Current Medications Medications (Trade) Dose Ordered Sig/Fabi Route PRN Reason Start Time Stop Time Status Last Admin Dose Admin Lorazepam (Ativan) 0.5 mg ONCE PRN PO ANXIETY / AGITATION 09/02/21 13:00 09/02/21 12:54 I have reviewed the current psychotropics carefully including drug interactions. Risk benefit ratio favors no change other than as noted in my dictated progress note. Diagnosis: Problems: (1) Impulse control disorder, unspecified (2) Anxiety disorder, unspecified (3) Dementia, vascular, with depression (4) Dementia, vascular, with delusions (5) Dementia in Alzheimer's disease with depression (6) Dementia in Alzheimer's disease with delusions (7) Dementia of the Alzheimer's type with early onset with behavioral disturbance (8) Major neurocognitive disorder CHERRIE LIVE MD Sep 02, 2021 21:34
[2021-09-03 05:00] VITALS: BP 116/59
--- NOTE | 2021-09-03 07:27 | PDOC ---
Exam Note: William Note: This note is a late entry for 09/01/2021 covers elements not covered in my initial note. Subjective: The patient seen on telehealth rounds on 09/01/2021 with Lilly HOYOS, discussed and reviewed the chart. Reviewed interim history and current functioning. Overall the patient has been restless, trying to get out of his room and he is on quarantine. He has intermittent hallucinations. He remains confused. Review of Systems: No CV, , eye, ENT system symptoms on review. Reliability poor. Mental Status Exam: The patient is oriented to himself. Insight and judgment, recent and remote memory, attention and concentration, fund of knowledge is poor consistent with his diagnoses. He was looking away as I tried to interact with him on telehealth rounds, totally oblivious of his surroundings, confused. Laboratory Data: Reviewed. Impression: Major neurocognitive disorder, Alzheimer, vascular with delusion, depression behavioral disturbance. Anxiety disorder unspecified. Impulse control disorder unspecified. Plan: Continue current psychotropics. Assessment: Vital Signs/I&O: Vital Signs Date Time Temp Pulse Resp B/P (MAP) Pulse Ox O2 Delivery O2 Flow Rate FiO2 09/03/21 05:00 98.0 80 16 116/59 (78) 94 Room Air 08/31/21 02:04 3.0 I & O 09/02/21 09/02/21 09/03/21 14:59 22:59 06:59 Intake Total 320 ml 200 ml Balance 320 ml 200 ml Current Medications: Meds: Current Medications Medications (Trade) Dose Ordered Sig/Fabi Route PRN Reason Start Time Stop Time Status Last Admin Dose Admin Citalopram Hydrobromide (CeleXA) 40 mg DAILY PO 08/26/21 09:00 08/28/21 18:29 DC 08/28/21 09:56 Acetaminophen (Tylenol) 650 mg PRN Q6HRS PRN PO MILD PAIN / TEMP > 100.3'F 08/25/21 19:30 08/25/21 19:36 Acetaminophen (Tylenol Supp) 650 mg PRN Q6HRS PRN [place] MILD PAIN / TEMP > 100.3'F 08/26/21 05:45 08/26/21 05:37 Guaifenesin (Mucinex Er) 600 mg BID PO 08/26/21 09:00 08/31/21 15:52 DC 08/30/21 09:38 Methylprednisolone Sodium Succinate (SOLU-Medrol 40MG VIAL) 60 mg BID IV 08/26/21 09:00 09/02/21 19:42 Enoxaparin Sodium (Lovenox 40mg Syringe) 30 mg DAILY SQ 08/26/21 09:00 08/26/21 08:57 DC 08/26/21 08:11 Enoxaparin Sodium (Lovenox 40mg Syringe) 40 mg DAILY SQ 08/27/21 09:00 09/02/21 07:57 Quetiapine Fumarate (SEROquel) 12.5 mg TID PO 08/26/21 14:00 08/29/21 17:18 DC 08/29/21 13:26 Mirtazapine (Remeron) 7.5 mg QHS PO 08/26/21 21:00 09/02/21 19:42 Quetiapine Fumarate (SEROquel) 25 mg PRN QHS PRN PO MOOD 08/26/21 12:15 09/01/21 19:18 Lorazepam (Ativan Inj) 2 mg PRN Q3HRS PRN IVP ANXIETY / AGITATION 08/27/21 14:15 08/28/21 18:29 DC 08/28/21 10:10 Lorazepam (Ativan) 0.25 mg PRN Q12HR PRN PO ANXIETY / AGITATION 08/28/21 18:30 09/02/21 20:07 Sertraline HCl (Zoloft) 50 mg DAILY PO 08/29/21 09:00 09/02/21 07:55 Azithromycin 500 mg/Sodium Chloride 250 ml @ 250 mls/hr 1X ONCE IV 08/30/21 20:30 08/30/21 21:29 DC 08/30/21 22:42 Ceftriaxone Sodium 1 gm/ Sodium Chloride 50 ml @ 100 mls/hr Q24H IV 08/30/21 20:00 09/02/21 19:43 Azithromycin (Zithromax) 250 mg DAILY PO 09/01/21 09:00 09/04/21 21:00 09/02/21 07:54 Guaifenesin (Robitussin) 600 mg BID PO 08/31/21 21:00 09/02/21 19:42 Quetiapine Fumarate (SEROquel) 12.5 mg 0900,1300,1700 PO 08/31/21 17:00 09/02/21 19:07 DC 09/02/21 17:08 Quetiapine Fumarate (SEROquel) 25 mg 1X ONCE PO 08/31/21 16:45 08/31/21 16:46 DC 08/31/21 16:57 Olanzapine (ZyPREXA ZYDIS) 2.5 mg PRN Q2HR PRN PO PSYCHOSIS 08/31/21 16:45 09/02/21 20:07 Lactobacillus Rhamnosus (Culturelle) 1 cap BID PO 09/01/21 21:00 09/02/21 19:42 Lorazepam (Ativan) 0.5 mg ONCE PRN PO ANXIETY / AGITATION 09/02/21 13:00 09/02/21 12:54 Quetiapine Fumarate (SEROquel) 12.5 mg 1300 PO 09/03/21 13:00 Quetiapine Fumarate (SEROquel) 25 mg 0900,1700 PO 09/03/21 09:00 Current Medications Medications (Trade) Dose Ordered Sig/Fabi Route PRN Reason Start Time Stop Time Status Last Admin Dose Admin Lorazepam (Ativan) 0.5 mg ONCE PRN PO ANXIETY / AGITATION 09/02/21 13:00 09/02/21 12:54 I have reviewed the current psychotropics carefully including drug interactions. Risk benefit ratio favors no change other than as noted in my dictated progress note. Diagnosis: Problems: (1) Impulse control disorder, unspecified (2) Anxiety disorder, unspecified (3) Dementia, vascular, with depression (4) Dementia, vascular, with delusions (5) Dementia in Alzheimer's disease with depression (6) Dementia in Alzheimer's disease with delusions (7) Dementia of the Alzheimer's type with early onset with behavioral disturbance (8) Major neurocognitive disorder CHERRIE LIVE MD Sep 03, 2021 07:27
--- NOTE | 2021-09-03 07:45 | PDOC ---
Exam Note: William Note: This note is a late entry for 09/02/2021 covers elements not covered in my initial note. Subjective: The patient seen on telehealth rounds on 09/02/2021 with Jadyn HOYOS, discussed and reviewed the chart. Reviewed interim history and current functioning. He remains confused. Jadyn RN had called me earlier in the day. The patient was extremely agitated, anxious, restless and he received Ativan 0.5 mg x1 ordered for this but not sure if it is helpful. By the time I saw him in the evening on telehealth rounds, he was restless, anxious, sitting down on the floor trying to grab at things that were not there, not staying in his room, despite the need for quarantine due to Covid-19 positive status. Review of Systems: No CV, , eye, ENT system symptoms on review. Mental Status Exam: The patient is oriented to himself. Insight and judgment, recent and remote memory, attention and concentration, fund of knowledge is poor consistent with his diagnoses. Laboratory Data: Reviewed. Impression: Major neurocognitive disorder, Alzheimer, vascular with delusion, depression behavioral disturbance. Anxiety disorder unspecified. Impulse control disorder unspecified. Plan: Continue current psychotropics. Given his ongoing agitation, we will increase Seroquel scheduled from 12.5 mg t.i.d. to 25 mg a.m. and p.m. and 12.5 mg at noon. Rest unchanged for now. We will use Zyprexa p.r.n., minimize the use of Ativan since this could cause paradoxical disinhibition. Rest of the psychotropics remains unchanged. Assessment: Vital Signs/I&O: Vital Signs Date Time Temp Pulse Resp B/P (MAP) Pulse Ox O2 Delivery O2 Flow Rate FiO2 09/03/21 05:00 98.0 80 16 116/59 (78) 94 Room Air 08/31/21 02:04 3.0 I & O 09/02/21 09/02/21 09/03/21 15:00 23:00 07:00 Intake Total 320 ml 200 ml Balance 320 ml 200 ml Current Medications: Meds: Current Medications Medications (Trade) Dose Ordered Sig/Fabi Route PRN Reason Start Time Stop Time Status Last Admin Dose Admin Citalopram Hydrobromide (CeleXA) 40 mg DAILY PO 08/26/21 09:00 08/28/21 18:29 DC 08/28/21 09:56 Acetaminophen (Tylenol) 650 mg PRN Q6HRS PRN PO MILD PAIN / TEMP > 100.3'F 08/25/21 19:30 08/25/21 19:36 Acetaminophen (Tylenol Supp) 650 mg PRN Q6HRS PRN [place] MILD PAIN / TEMP > 100.3'F 08/26/21 05:45 08/26/21 05:37 Guaifenesin (Mucinex Er) 600 mg BID PO 08/26/21 09:00 08/31/21 15:52 DC 08/30/21 09:38 Methylprednisolone Sodium Succinate (SOLU-Medrol 40MG VIAL) 60 mg BID IV 08/26/21 09:00 09/02/21 19:42 Enoxaparin Sodium (Lovenox 40mg Syringe) 30 mg DAILY SQ 08/26/21 09:00 08/26/21 08:57 DC 08/26/21 08:11 Enoxaparin Sodium (Lovenox 40mg Syringe) 40 mg DAILY SQ 08/27/21 09:00 09/02/21 07:57 Quetiapine Fumarate (SEROquel) 12.5 mg TID PO 08/26/21 14:00 08/29/21 17:18 DC 08/29/21 13:26 Mirtazapine (Remeron) 7.5 mg QHS PO 08/26/21 21:00 09/02/21 19:42 Quetiapine Fumarate (SEROquel) 25 mg PRN QHS PRN PO MOOD 08/26/21 12:15 09/01/21 19:18 Lorazepam (Ativan Inj) 2 mg PRN Q3HRS PRN IVP ANXIETY / AGITATION 08/27/21 14:15 08/28/21 18:29 DC 08/28/21 10:10 Lorazepam (Ativan) 0.25 mg PRN Q12HR PRN PO ANXIETY / AGITATION 08/28/21 18:30 09/02/21 20:07 Sertraline HCl (Zoloft) 50 mg DAILY PO 08/29/21 09:00 09/02/21 07:55 Azithromycin 500 mg/Sodium Chloride 250 ml @ 250 mls/hr 1X ONCE IV 08/30/21 20:30 08/30/21 21:29 DC 08/30/21 22:42 Ceftriaxone Sodium 1 gm/ Sodium Chloride 50 ml @ 100 mls/hr Q24H IV 08/30/21 20:00 09/02/21 19:43 Azithromycin (Zithromax) 250 mg DAILY PO 09/01/21 09:00 09/04/21 21:00 09/02/21 07:54 Guaifenesin (Robitussin) 600 mg BID PO 08/31/21 21:00 09/02/21 19:42 Quetiapine Fumarate (SEROquel) 12.5 mg 0900,1300,1700 PO 08/31/21 17:00 09/02/21 19:07 DC 09/02/21 17:08 Quetiapine Fumarate (SEROquel) 25 mg 1X ONCE PO 08/31/21 16:45 08/31/21 16:46 DC 08/31/21 16:57 Olanzapine (ZyPREXA ZYDIS) 2.5 mg PRN Q2HR PRN PO PSYCHOSIS 08/31/21 16:45 09/02/21 20:07 Lactobacillus Rhamnosus (Culturelle) 1 cap BID PO 09/01/21 21:00 09/02/21 19:42 Lorazepam (Ativan) 0.5 mg ONCE PRN PO ANXIETY / AGITATION 09/02/21 13:00 09/02/21 12:54 Quetiapine Fumarate (SEROquel) 12.5 mg 1300 PO 09/03/21 13:00 Quetiapine Fumarate (SEROquel) 25 mg 0900,1700 PO 09/03/21 09:00 Current Medications Medications (Trade) Dose Ordered Sig/Fabi Route PRN Reason Start Time Stop Time Status Last Admin Dose Admin Lorazepam (Ativan) 0.5 mg ONCE PRN PO ANXIETY / AGITATION 09/02/21 13:00 09/02/21 12:54 I have reviewed the current psychotropics carefully including drug interactions. Risk benefit ratio favors no change other than as noted in my dictated progress note. Diagnosis: Problems: (1) Impulse control disorder, unspecified (2) Anxiety disorder, unspecified (3) Dementia, vascular, with depression (4) Dementia, vascular, with delusions (5) Dementia in Alzheimer's disease with depression (6) Dementia in Alzheimer's disease with delusions (7) Dementia of the Alzheimer's type with early onset with behavioral disturbance (8) Major neurocognitive disorder CHERRIE LIVE MD Sep 03, 2021 07:45
[2021-09-03] MEDS: ENOXAPARIN 40 MG/0.4 ML SYRINGE. SQ SCH (08:42)
[2021-09-03] MEDS: LACTOBACILLUS RHAMNOSUS GG 1 CAPSULE. PO SCH ×2 (08:43→19:54)
[2021-09-03] MEDS: AZITHROMYCIN 250 MG TABLET. PO SCH (08:43)
[2021-09-03] MEDS: QUEtiapine 25 MG TABLET. PO SCH ×3 (08:43→16:10)
[2021-09-03] MEDS: methylPREDNISolone SOD SUCC PF 40 MG/ML VIAL. IV SCH ×2 (08:43→19:54)
[2021-09-03] MEDS: SERTRALINE 50 MG TABLET. PO SCH (08:43)
[2021-09-03] MEDS: guaiFENesin 300 MG/15 ML LIQUID PO SCH ×2 (08:45→19:55)
[2021-09-03] MEDS: LORazepam 0.5 MG TABLET PO PRN (09:27)
[2021-09-03 11:30] VITALS: BP 118/64
--- NOTE | 2021-09-03 12:49 | NUR ---
Nurse Day Shift Note: Pt presents with confused/disorganized and impulsive affect/behaviors. Pt is medication compliant. Pt was given a PRN ativan at 0930. Pt has been resting during the day. Pt ate his breakfast. Will continue to monitor.
[2021-09-03 14:30] VITALS: BP 131/53
--- NOTE | 2021-09-03 17:43 | NUR ---
Pt was ambulating unassisted, is impulsive, unable to be redirected. Pt wandered into bathroom. Pt was found on bathroom floor. Vitals 112/55, 63 HR, 88% Oxygen, 97.[address] Bruner. Will continue to monitor.
[2021-09-03] MEDS ORDERED: LORazepam 0.5 MG TABLET PO PRN (17:45)
[2021-09-03 17:58] VITALS: BP 112/55
--- NOTE | 2021-09-03 18:14 | NUR ---
Doctor notified of pt found on bathroom floor. said, if mental status changes, order a CT scan of the head. Will continue to monitor.
[2021-09-03] MEDS: MIRTAZAPINE 7.5 MG TABLET. PO SCH (19:54)
[2021-09-03] MEDS: QUEtiapine 25 MG TABLET. PO PRN (19:58)
--- NOTE | 2021-09-03 21:38 | PDOC ---
Exam Note: William Note: Please also refer to the separate dictated note~for this date of service dictated separately.~Patient seen individually. Discussed the patient with Nursing staff reviewed the chart.~Reviewed interim history and current functioning. Reviewed vital signs,~Labs/ Radiology~and current medications noted below. Continue current treatment with the changes noted in the dictated addendum note Assessment: Vital Signs/I&O: Vital Signs Date Time Temp Pulse Resp B/P (MAP) Pulse Ox O2 Delivery O2 Flow Rate FiO2 09/03/21 17:58 97.4 63 16 112/55 (74) 88 Room Air 08/31/21 02:04 3.0 I & O 09/02/21 09/02/21 09/03/21 14:59 22:59 06:59 Intake Total 320 ml 200 ml Balance 320 ml 200 ml Current Medications: Meds: Current Medications Medications (Trade) Dose Ordered Sig/Fabi Route PRN Reason Start Time Stop Time Status Last Admin Dose Admin Citalopram Hydrobromide (CeleXA) 40 mg DAILY PO 08/26/21 09:00 08/28/21 18:29 DC 08/28/21 09:56 Acetaminophen (Tylenol) 650 mg PRN Q6HRS PRN PO MILD PAIN / TEMP > 100.3'F 08/25/21 19:30 08/25/21 19:36 Acetaminophen (Tylenol Supp) 650 mg PRN Q6HRS PRN [place] MILD PAIN / TEMP > 100.3'F 08/26/21 05:45 08/26/21 05:37 Guaifenesin (Mucinex Er) 600 mg BID PO 08/26/21 09:00 08/31/21 15:52 DC 08/30/21 09:38 Methylprednisolone Sodium Succinate (SOLU-Medrol 40MG VIAL) 60 mg BID IV 08/26/21 09:00 09/03/21 19:54 Enoxaparin Sodium (Lovenox 40mg Syringe) 30 mg DAILY SQ 08/26/21 09:00 08/26/21 08:57 DC 08/26/21 08:11 Enoxaparin Sodium (Lovenox 40mg Syringe) 40 mg DAILY SQ 08/27/21 09:00 09/03/21 08:42 Quetiapine Fumarate (SEROquel) 12.5 mg TID PO 08/26/21 14:00 08/29/21 17:18 DC 08/29/21 13:26 Mirtazapine (Remeron) 7.5 mg QHS PO 08/26/21 21:00 09/03/21 19:54 Quetiapine Fumarate (SEROquel) 25 mg PRN QHS PRN PO MOOD 08/26/21 12:15 09/03/21 19:58 Lorazepam (Ativan Inj) 2 mg PRN Q3HRS PRN IVP ANXIETY / AGITATION 08/27/21 14:15 08/28/21 18:29 DC 08/28/21 10:10 Lorazepam (Ativan) 0.25 mg PRN Q12HR PRN PO ANXIETY / AGITATION 08/28/21 18:30 09/03/21 17:08 DC 09/03/21 09:27 Sertraline HCl (Zoloft) 50 mg DAILY PO 08/29/21 09:00 09/03/21 08:43 Azithromycin 500 mg/Sodium Chloride 250 ml @ 250 mls/hr 1X ONCE IV 08/30/21 20:30 08/30/21 21:29 DC 08/30/21 22:42 Ceftriaxone Sodium 1 gm/ Sodium Chloride 50 ml @ 100 mls/hr Q24H IV 08/30/21 20:00 09/03/21 19:59 Azithromycin (Zithromax) 250 mg DAILY PO 09/01/21 09:00 09/04/21 21:00 09/03/21 08:43 Guaifenesin (Robitussin) 600 mg BID PO 08/31/21 21:00 09/03/21 19:55 Quetiapine Fumarate (SEROquel) 12.5 mg 0900,1300,1700 PO 08/31/21 17:00 09/02/21 19:07 DC 09/02/21 17:08 Quetiapine Fumarate (SEROquel) 25 mg 1X ONCE PO 08/31/21 16:45 08/31/21 16:46 DC 08/31/21 16:57 Olanzapine (ZyPREXA ZYDIS) 2.5 mg PRN Q2HR PRN PO PSYCHOSIS 08/31/21 16:45 09/03/21 19:59 Lactobacillus Rhamnosus (Culturelle) 1 cap BID PO 09/01/21 21:00 09/03/21 19:54 Lorazepam (Ativan) 0.5 mg ONCE PRN PO ANXIETY / AGITATION 09/02/21 13:00 09/03/21 17:44 DC 09/02/21 12:54 Quetiapine Fumarate (SEROquel) 12.5 mg 1300 PO 09/03/21 13:00 Quetiapine Fumarate (SEROquel) 25 mg 0900,1700 PO 09/03/21 09:00 09/03/21 16:10 Divalproex Sodium (Depakote Sprinkles) 125 mg DAILY PO 09/04/21 09:00 Divalproex Sodium (Depakote Sprinkles) 125 mg 1700 PO 09/04/21 17:00 Lorazepam (Ativan) 0.25 mg PRN Q12HR PRN PO ANXIETY / AGITATION 09/03/21 17:45 Current Medications Medications (Trade) Dose Ordered Sig/Fabi Route PRN Reason Start Time Stop Time Status Last Admin Dose Admin Quetiapine Fumarate (SEROquel) 25 mg 0900,1700 PO 09/03/21 09:00 09/03/21 16:10 I have reviewed the current psychotropics carefully including drug interactions. Risk benefit ratio favors no change other than as noted in my dictated progress note. Diagnosis: Problems: (1) Impulse control disorder, unspecified (2) Anxiety disorder, unspecified (3) Dementia, vascular, with depression (4) Dementia, vascular, with delusions (5) Dementia in Alzheimer's disease with depression (6) Dementia in Alzheimer's disease with delusions (7) Dementia of the Alzheimer's type with early onset with behavioral disturbance (8) Major neurocognitive disorder CHERRIE LIVE MD Sep 03, 2021 21:38
--- NOTE | 2021-09-03 23:31 | NUR ---
Pt highly restless this evening. Pt repeatedly attempting to leave his room and wander around unit. Pt redirected numerous times. Pt hallucinating; attempting to knot picker cloth items from the floor that are not there. PRN Seroquel and Zydis administered with crushed HS medications. Pt continued to be restless and became combative with redirection. Pt attempting to hit and kick staff. PRN Ativan administered at 2150. Pt currently sleeping, waking up intermittently. Pt continues to have moist, non productive cough.
[2021-09-04 06:24] VITALS: BP 115/40
--- NOTE | 2021-09-04 08:21 | PDOC ---
Exam Note: William Note: This note is a late entry for 09/03/2021 covers elements not covered in my initial note. Subjective: The patient seen on telehealth rounds on 09/03/2021 with Tj RN with the camera around and Amber RN, discussed and reviewed the chart. Reviewed interim history and current functioning. Patient has had a very difficult day. He has been agitated, disruptive walking off his room and almost absconding from the hospital at one point, difficult to redirect, going into other patients rooms. Initially I felt that Ativan p.r.n. could be causing paradoxical disinhibition but later the nursing staff called me as an emergency as the patient had almost eloped again and he felt Ativan was helpful and we restarted it. Review of Systems: No CV, , eye, ENT system symptoms on review. Reliability poor. Mental Status Exam: The patient is oriented to himself. Insight and judgment, recent and remote memory, attention and concentration, fund of knowledge is poor consistent with his diagnoses. Laboratory Data: Reviewed. Impression: Major neurocognitive disorder, Alzheimer, vascular with delusion, depression behavioral disturbance. Anxiety disorder unspecified. Impulse control disorder unspecified. Plan: Continue current psychotropics. Given his marked agitation and mood lability, we will start Depakote Sprinkle 125 mg 9 a.m. and 5 p.m. Check CBC, CMP, valproic acid level, ammonia level in 3 days. Rest unchanged for now. Dr. Bruner is managing the patient medically. Assessment: Vital Signs/I&O: Vital Signs Date Time Temp Pulse Resp B/P (MAP) Pulse Ox O2 Delivery O2 Flow Rate FiO2 09/04/21 06:24 97.0 63 16 115/40 (65) 91 09/03/21 22:29 Room Air 08/31/21 02:04 3.0 I & O 09/03/21 09/03/21 09/04/21 14:59 22:59 06:59 Intake Total 360 ml 360 ml Balance 360 ml 360 ml Current Medications: Meds: Current Medications Medications (Trade) Dose Ordered Sig/Fabi Route PRN Reason Start Time Stop Time Status Last Admin Dose Admin Citalopram Hydrobromide (CeleXA) 40 mg DAILY PO 08/26/21 09:00 08/28/21 18:29 DC 08/28/21 09:56 Acetaminophen (Tylenol) 650 mg PRN Q6HRS PRN PO MILD PAIN / TEMP > 100.3'F 08/25/21 19:30 08/25/21 19:36 Acetaminophen (Tylenol Supp) 650 mg PRN Q6HRS PRN PA MILD PAIN / TEMP > 100.3'F 08/26/21 05:45 08/26/21 05:37 Guaifenesin (Mucinex Er) 600 mg BID PO 08/26/21 09:00 08/31/21 15:52 DC 08/30/21 09:38 Methylprednisolone Sodium Succinate (SOLU-Medrol 40MG VIAL) 60 mg BID IV 08/26/21 09:00 09/03/21 19:54 Enoxaparin Sodium (Lovenox 40mg Syringe) 30 mg DAILY SQ 08/26/21 09:00 08/26/21 08:57 DC 08/26/21 08:11 Enoxaparin Sodium (Lovenox 40mg Syringe) 40 mg DAILY SQ 08/27/21 09:00 09/03/21 08:42 Quetiapine Fumarate (SEROquel) 12.5 mg TID PO 08/26/21 14:00 08/29/21 17:18 DC 08/29/21 13:26 Mirtazapine (Remeron) 7.5 mg QHS PO 08/26/21 21:00 09/03/21 19:54 Quetiapine Fumarate (SEROquel) 25 mg PRN QHS PRN PO MOOD 08/26/21 12:15 09/03/21 19:58 Lorazepam (Ativan Inj) 2 mg PRN Q3HRS PRN IVP ANXIETY / AGITATION 08/27/21 14:15 08/28/21 18:29 DC 08/28/21 10:10 Lorazepam (Ativan) 0.25 mg PRN Q12HR PRN PO ANXIETY / AGITATION 08/28/21 18:30 09/03/21 17:08 DC 09/03/21 09:27 Sertraline HCl (Zoloft) 50 mg DAILY PO 08/29/21 09:00 09/03/21 08:43 Azithromycin 500 mg/Sodium Chloride 250 ml @ 250 mls/hr 1X ONCE IV 08/30/21 20:30 08/30/21 21:29 DC 08/30/21 22:42 Ceftriaxone Sodium 1 gm/ Sodium Chloride 50 ml @ 100 mls/hr Q24H IV 08/30/21 20:00 09/03/21 19:59 Azithromycin (Zithromax) 250 mg DAILY PO 09/01/21 09:00 09/04/21 21:00 09/03/21 08:43 Guaifenesin (Robitussin) 600 mg BID PO 08/31/21 21:00 09/03/21 19:55 Quetiapine Fumarate (SEROquel) 12.5 mg 0900,1300,1700 PO 08/31/21 17:00 09/02/21 19:07 DC 09/02/21 17:08 Quetiapine Fumarate (SEROquel) 25 mg 1X ONCE PO 08/31/21 16:45 08/31/21 16:46 DC 08/31/21 16:57 Olanzapine (ZyPREXA ZYDIS) 2.5 mg PRN Q2HR PRN PO PSYCHOSIS 08/31/21 16:45 09/03/21 19:59 Lactobacillus Rhamnosus (Culturelle) 1 cap BID PO 09/01/21 21:00 09/03/21 19:54 Lorazepam (Ativan) 0.5 mg ONCE PRN PO ANXIETY / AGITATION 09/02/21 13:00 09/03/21 17:44 DC 09/02/21 12:54 Quetiapine Fumarate (SEROquel) 12.5 mg 1300 PO 09/03/21 13:00 Quetiapine Fumarate (SEROquel) 25 mg 0900,1700 PO 09/03/21 09:00 09/03/21 16:10 Divalproex Sodium (Depakote Sprinkles) 125 mg DAILY PO 09/04/21 09:00 Divalproex Sodium (Depakote Sprinkles) 125 mg 1700 PO 09/04/21 17:00 Lorazepam (Ativan) 0.25 mg PRN Q12HR PRN PO ANXIETY / AGITATION 09/03/21 17:45 Current Medications Medications (Trade) Dose Ordered Sig/Fabi Route PRN Reason Start Time Stop Time Status Last Admin Dose Admin Quetiapine Fumarate (SEROquel) 25 mg 0900,1700 PO 09/03/21 09:00 09/03/21 16:10 I have reviewed the current psychotropics carefully including drug interactions. Risk benefit ratio favors no change other than as noted in my dictated progress note. Diagnosis: Problems: (1) Impulse control disorder, unspecified (2) Anxiety disorder, unspecified (3) Dementia, vascular, with depression (4) Dementia, vascular, with delusions (5) Dementia in Alzheimer's disease with depression (6) Dementia in Alzheimer's disease with delusions (7) Dementia of the Alzheimer's type with early onset with behavioral disturbance (8) Major neurocognitive disorder CHERRIE LIVE MD Sep 04, 2021 08:21
[2021-09-04] MEDS: methylPREDNISolone SOD SUCC PF 40 MG/ML VIAL. IV SCH (09:15)
[2021-09-04] MEDS: QUEtiapine 25 MG TABLET. PO SCH ×3 (09:15→17:05)
[2021-09-04] MEDS: SERTRALINE 50 MG TABLET. PO SCH (09:15)
[2021-09-04] MEDS: AZITHROMYCIN 250 MG TABLET. PO SCH (09:15)
[2021-09-04] MEDS: LACTOBACILLUS RHAMNOSUS GG 1 CAPSULE. PO SCH ×2 (09:15→19:24)
[2021-09-04] MEDS: DIVALPROEX 125 MG CAP.SPRINK PO SCH (09:16)
[2021-09-04] MEDS: guaiFENesin 300 MG/15 ML LIQUID PO SCH ×2 (09:16→19:24)
[2021-09-04] MEDS: ENOXAPARIN 40 MG/0.4 ML SYRINGE. SQ SCH (09:16)
[2021-09-04] MEDS: LORazepam 0.5 MG TABLET PO PRN ×2 (11:38→19:51)
[2021-09-04 12:23] VITALS: BP 149/52
[2021-09-04 15:49] VITALS: BP 103/63
--- NOTE | 2021-09-04 15:50 | NUR ---
Nursing note: Patient cooperative for assessment. He is compliant with medications crushed in pudding. He is A/O to first name only, unable to respond to questions as his responses are not applicable to questions. No facial grimacing noted at this time. He has been resistive with cares becoming PA with staff and attempted to place hands around this nurses neck, PRN given per order. Patient has been highly restless and trying to leave room most of the day, not receptive to redirects, PRN given per order. He has been visualized by staff hallucinating; trying to pick things up from the floor that are not there. Patient has been crawling around on the floor as well. He has been talking to himself frequently on and off through the day. He walks independently, can be unsteady at times. Afternoon vitals partially completed due to his restlessness. He is currently walking around room. Will continue to monitor.
[2021-09-04] MEDS ORDERED: DIVALPROEX 125 MG CAP.SPRINK PO SCH (17:00)
[2021-09-04] MEDS: MIRTAZAPINE 7.5 MG TABLET. PO SCH (19:24)
[2021-09-04] MEDS: QUEtiapine 25 MG TABLET. PO PRN (19:51)
[2021-09-04 21:09] VITALS: BP 112/61
--- NOTE | 2021-09-04 21:42 | PDOC ---
Exam Note: William Note: Please also refer to the separate dictated note~for this date of service dictated separately.~Patient seen individually. Discussed the patient with Nursing staff reviewed the chart.~Reviewed interim history and current functioning. Reviewed vital signs,~Labs/ Radiology~and current medications noted below. Continue current treatment with the changes noted in the dictated addendum note Assessment: Vital Signs/I&O: Vital Signs Date Time Temp Pulse Resp B/P (MAP) Pulse Ox O2 Delivery O2 Flow Rate FiO2 09/04/21 21:09 97.2 95 18 112/61 (78) 92 09/04/21 08:00 Room Air 08/31/21 02:04 3.0 I & O 0 09/03/21 09/03/21 09/04/21 15:00 23:00 07:00 Intake Total 360 ml 360 ml Balance 360 ml 360 ml Current Medications: Meds: Current Medications Medications (Trade) Dose Ordered Sig/Fabi Route PRN Reason Start Time Stop Time Status Last Admin Dose Admin Citalopram Hydrobromide (CeleXA) 40 mg DAILY PO 08/26/21 09:00 08/28/21 18:29 DC 08/28/21 09:56 Acetaminophen (Tylenol) 650 mg PRN Q6HRS PRN PO MILD PAIN / TEMP > 100.3'F 08/25/21 19:30 08/25/21 19:36 Acetaminophen (Tylenol Supp) 650 mg PRN Q6HRS PRN OR MILD PAIN / TEMP > 100.3'F 08/26/21 05:45 08/26/21 05:37 Guaifenesin (Mucinex Er) 600 mg BID PO 08/26/21 09:00 08/31/21 15:52 DC 08/30/21 09:38 Methylprednisolone Sodium Succinate (SOLU-Medrol 40MG VIAL) 60 mg BID IV 08/26/21 09:00 09/04/21 18:32 DC 09/04/21 09:15 Enoxaparin Sodium (Lovenox 40mg Syringe) 30 mg DAILY SQ 08/26/21 09:00 08/26/21 08:57 DC 08/26/21 08:11 Enoxaparin Sodium (Lovenox 40mg Syringe) 40 mg DAILY SQ 08/27/21 09:00 09/04/21 09:16 Quetiapine Fumarate (SEROquel) 12.5 mg TID PO 08/26/21 14:00 08/29/21 17:18 DC 08/29/21 13:26 Mirtazapine (Remeron) 7.5 mg QHS PO 08/26/21 21:00 09/04/21 19:24 Quetiapine Fumarate (SEROquel) 25 mg PRN QHS PRN PO MOOD 08/26/21 12:15 09/04/21 19:51 Lorazepam (Ativan Inj) 2 mg PRN Q3HRS PRN IVP ANXIETY / AGITATION 08/27/21 14:15 08/28/21 18:29 DC 08/28/21 10:10 Lorazepam (Ativan) 0.25 mg PRN Q12HR PRN PO ANXIETY / AGITATION 08/28/21 18:30 09/03/21 17:08 DC 09/03/21 09:27 Sertraline HCl (Zoloft) 50 mg DAILY PO 08/29/21 09:00 09/04/21 09:15 Azithromycin 500 mg/Sodium Chloride 250 ml @ 250 mls/hr 1X ONCE IV 08/30/21 20:30 08/30/21 21:29 DC 08/30/21 22:42 Ceftriaxone Sodium 1 gm/ Sodium Chloride 50 ml @ 100 mls/hr Q24H IV 08/30/21 20:00 09/04/21 20:49 DC 09/03/21 19:59 Azithromycin (Zithromax) 250 mg DAILY PO 09/01/21 09:00 09/04/21 21:00 DC 09/04/21 09:15 Guaifenesin (Robitussin) 600 mg BID PO 08/31/21 21:00 09/04/21 19:24 Quetiapine Fumarate (SEROquel) 12.5 mg 0900,1300,1700 PO 08/31/21 17:00 09/02/21 19:07 DC 09/02/21 17:08 Quetiapine Fumarate (SEROquel) 25 mg 1X ONCE PO 08/31/21 16:45 08/31/21 16:46 DC 08/31/21 16:57 Olanzapine (ZyPREXA ZYDIS) 2.5 mg PRN Q2HR PRN PO PSYCHOSIS 08/31/21 16:45 09/04/21 19:51 Lactobacillus Rhamnosus (Culturelle) 1 cap BID PO 09/01/21 21:00 09/04/21 19:24 Lorazepam (Ativan) 0.5 mg ONCE PRN PO ANXIETY / AGITATION 09/02/21 13:00 09/03/21 17:44 DC 09/02/21 12:54 Quetiapine Fumarate (SEROquel) 12.5 mg 1300 PO 09/03/21 13:00 09/04/21 12:45 Quetiapine Fumarate (SEROquel) 25 mg 0900,1700 PO 09/03/21 09:00 09/04/21 17:05 Divalproex Sodium (Depakote Sprinkles) 125 mg DAILY PO 09/04/21 09:00 09/04/21 09:16 Divalproex Sodium (Depakote Sprinkles) 125 mg 1700 PO 09/04/21 17:00 09/04/21 17:05 Lorazepam (Ativan) 0.25 mg PRN Q12HR PRN PO ANXIETY / AGITATION 09/03/21 17:45 09/04/21 11:33 DC Lorazepam (Ativan) 0.5 mg PRN Q12HR PRN PO ANXIETY / AGITATION 09/04/21 11:30 09/04/21 19:51 Prednisone (Prednisone) 40 mg DAILY PO 09/05/21 09:00 09/07/21 13:00 Prednisone (Prednisone) 30 mg DAILY PO 09/08/21 09:00 09/10/21 13:00 Prednisone (Prednisone) 20 mg DAILY PO 09/11/21 09:00 09/13/21 13:00 Prednisone (Prednisone) 10 mg DAILY PO 09/14/21 09:00 09/16/21 13:00 Current Medications Medications (Trade) Dose Ordered Sig/Fabi Route PRN Reason Start Time Stop Time Status Last Admin Dose Admin Divalproex Sodium (Depakote Sprinkles) 125 mg DAILY PO 09/04/21 09:00 09/04/21 09:16 Divalproex Sodium (Depakote Sprinkles) 125 mg 1700 PO 09/04/21 17:00 09/04/21 17:05 Lorazepam (Ativan) 0.5 mg PRN Q12HR PRN PO ANXIETY / AGITATION 09/04/21 11:30 09/04/21 19:51 I have reviewed the current psychotropics carefully including drug interactions. Risk benefit ratio favors no change other than as noted in my dictated progress note. Diagnosis: Problems: (1) Impulse control disorder, unspecified (2) Anxiety disorder, unspecified (3) Dementia, vascular, with depression (4) Dementia, vascular, with delusions (5) Dementia in Alzheimer's disease with depression (6) Dementia in Alzheimer's disease with delusions (7) Dementia of the Alzheimer's type with early onset with behavioral disturbance (8) Major neurocognitive disorder CHERRIE LIVE MD Sep 04, 2021 21:42
[2021-09-04] MEDS ORDERED: PRED20TA PO ×3 (23:54→23:57)
[2021-09-04] MEDS ORDERED: PRED-220 PO (23:58)
[2021-09-05] MEDS ORDERED: LACT1CAP21 PO
[2021-09-05] MEDS ORDERED: [UNRECOGNIZED DRUG - CODE] PO (00:02)
[2021-09-05] MEDS ORDERED: LORA-254 PO (00:03)
[2021-09-05] MEDS ORDERED: QUET25TA5 PO ×3 (00:05→00:06)
[2021-09-05] MEDS ORDERED: OLAN5TAB99 PO (00:07)
[2021-09-05] MEDS ORDERED: SERT50TA PO (00:08)
[2021-09-05] MEDS ORDERED: MIRT-37 PO (00:09)
[2021-09-05] MEDS ORDERED: DIVA125C2 PO (00:11)
[2021-09-05] MEDS ORDERED: ACET650S11 RC (00:12)
[2021-09-05] MEDS ORDERED: ACET325T9 PO (00:14)
[2021-09-05 06:00] VITALS: BP 130/65
[2021-09-05] MEDS: SERTRALINE 50 MG TABLET. PO SCH (07:47)
[2021-09-05] MEDS: LACTOBACILLUS RHAMNOSUS GG 1 CAPSULE. PO SCH (07:47)
[2021-09-05] MEDS: DIVALPROEX 125 MG CAP.SPRINK PO SCH (07:47)
[2021-09-05] MEDS: QUEtiapine 25 MG TABLET. PO SCH (07:47)
[2021-09-05] MEDS: guaiFENesin 300 MG/15 ML LIQUID PO SCH (07:48)
[2021-09-05] MEDS: ENOXAPARIN 40 MG/0.4 ML SYRINGE. SQ SCH (07:48)
--- NOTE | 2021-09-05 08:23 | PDOC ---
Exam Note: William Note: This note is a late entry for 09/04/2021 covers elements not covered in my initial note. Subjective: The patient seen on telehealth rounds on 09/04/2021 with Ladonna Herrera RN, discussed and reviewed the chart. Reviewed interim history and current functioning. Overall patient remains confused, intermittently agitated. He did greet the nursing staff with a statement I am Joshua Shukla. After this his thought processes were disorganized and difficult to follow and this was evident to me during the telehealth visit as well. He has been trying to elope from the facility getting into others rooms. Nursing staff had called me earlier in the day with his agitation and we bought him back on his Ativan p.r.n. and then adjusted the dosage. Review of Systems: No CV, , eye, ENT system symptoms on review. Reliability poor. Mental Status Exam: The patient is oriented to himself. Insight and judgment, recent and remote memory, attention and concentration, fund of knowledge is poor consistent with his diagnoses. Laboratory Data: Reviewed. Impression: Major neurocognitive disorder, Alzheimer, vascular with delusion, depression behavioral disturbance. Anxiety disorder unspecified. Impulse control disorder unspecified. Plan: Continue current psychotropics. Patient will return back to [facility] tomorrow since he had finished his quarantine. Assessment: Vital Signs/I&O: Vital Signs Date Time Temp Pulse Resp B/P (MAP) Pulse Ox O2 Delivery O2 Flow Rate FiO2 09/05/21 06:00 97.8 76 18 130/65 (86) 93 09/05/21 02:26 Room Air 08/31/21 02:04 3.0 I & O 09/04/21 09/04/21 09/05/21 15:00 23:00 07:00 Intake Total 240 ml 120 ml 140 ml Balance 240 ml 120 ml 140 ml Current Medications: Meds: Current Medications Medications (Trade) Dose Ordered Sig/Fabi Route PRN Reason Start Time Stop Time Status Last Admin Dose Admin Citalopram Hydrobromide (CeleXA) 40 mg DAILY PO 08/26/21 09:00 08/28/21 18:29 DC 08/28/21 09:56 Acetaminophen (Tylenol) 650 mg PRN Q6HRS PRN PO MILD PAIN / TEMP > 100.3'F 08/25/21 19:30 08/25/21 19:36 Acetaminophen (Tylenol Supp) 650 mg PRN Q6HRS PRN SC MILD PAIN / TEMP > 100.3'F 08/26/21 05:45 08/26/21 05:37 Guaifenesin (Mucinex Er) 600 mg BID PO 08/26/21 09:00 08/31/21 15:52 DC 08/30/21 09:38 Methylprednisolone Sodium Succinate (SOLU-Medrol 40MG VIAL) 60 mg BID IV 08/26/21 09:00 09/04/21 18:32 DC 09/04/21 09:15 Enoxaparin Sodium (Lovenox 40mg Syringe) 30 mg DAILY SQ 08/26/21 09:00 08/26/21 08:57 DC 08/26/21 08:11 Enoxaparin Sodium (Lovenox 40mg Syringe) 40 mg DAILY SQ 08/27/21 09:00 09/05/21 07:48 Quetiapine Fumarate (SEROquel) 12.5 mg TID PO 08/26/21 14:00 08/29/21 17:18 DC 08/29/21 13:26 Mirtazapine (Remeron) 7.5 mg QHS PO 08/26/21 21:00 09/04/21 19:24 Quetiapine Fumarate (SEROquel) 25 mg PRN QHS PRN PO MOOD 08/26/21 12:15 09/04/21 19:51 Lorazepam (Ativan Inj) 2 mg PRN Q3HRS PRN IVP ANXIETY / AGITATION 08/27/21 14:15 08/28/21 18:29 DC 08/28/21 10:10 Lorazepam (Ativan) 0.25 mg PRN Q12HR PRN PO ANXIETY / AGITATION 08/28/21 18:30 09/03/21 17:08 DC 09/03/21 09:27 Sertraline HCl (Zoloft) 50 mg DAILY PO 08/29/21 09:00 09/05/21 07:47 Azithromycin 500 mg/Sodium Chloride 250 ml @ 250 mls/hr 1X ONCE IV 08/30/21 20:30 08/30/21 21:29 DC 08/30/21 22:42 Ceftriaxone Sodium 1 gm/ Sodium Chloride 50 ml @ 100 mls/hr Q24H IV 08/30/21 20:00 09/04/21 20:49 DC 09/03/21 19:59 Azithromycin (Zithromax) 250 mg DAILY PO 09/01/21 09:00 09/04/21 21:00 DC 09/04/21 09:15 Guaifenesin (Robitussin) 600 mg BID PO 08/31/21 21:00 09/05/21 07:48 Quetiapine Fumarate (SEROquel) 12.5 mg 0900,1300,1700 PO 08/31/21 17:00 09/02/21 19:07 DC 09/02/21 17:08 Quetiapine Fumarate (SEROquel) 25 mg 1X ONCE PO 08/31/21 16:45 08/31/21 16:46 DC 08/31/21 16:57 Olanzapine (ZyPREXA ZYDIS) 2.5 mg PRN Q2HR PRN PO PSYCHOSIS 08/31/21 16:45 09/04/21 19:51 Lactobacillus Rhamnosus (Culturelle) 1 cap BID PO 09/01/21 21:00 09/05/21 07:47 Lorazepam (Ativan) 0.5 mg ONCE PRN PO ANXIETY / AGITATION 09/02/21 13:00 09/03/21 17:44 DC 09/02/21 12:54 Quetiapine Fumarate (SEROquel) 12.5 mg 1300 PO 09/03/21 13:00 09/04/21 12:45 Quetiapine Fumarate (SEROquel) 25 mg 0900,1700 PO 09/03/21 09:00 09/05/21 07:47 Divalproex Sodium (Depakote Sprinkles) 125 mg DAILY PO 09/04/21 09:00 09/05/21 07:47 Divalproex Sodium (Depakote Sprinkles) 125 mg 1700 PO 09/04/21 17:00 09/04/21 17:05 Lorazepam (Ativan) 0.25 mg PRN Q12HR PRN PO ANXIETY / AGITATION 09/03/21 17:45 09/04/21 11:33 DC Lorazepam (Ativan) 0.5 mg PRN Q12HR PRN PO ANXIETY / AGITATION 09/04/21 11:30 09/04/21 19:51 Prednisone (Prednisone) 40 mg DAILY PO 09/05/21 09:00 09/07/21 13:00 09/05/21 07:47 Prednisone (Prednisone) 30 mg DAILY PO 09/08/21 09:00 09/10/21 13:00 Prednisone (Prednisone) 20 mg DAILY PO 09/11/21 09:00 09/13/21 13:00 Prednisone (Prednisone) 10 mg DAILY PO 09/14/21 09:00 09/16/21 13:00 Current Medications Medications (Trade) Dose Ordered Sig/Fabi Route PRN Reason Start Time Stop Time Status Last Admin Dose Admin Divalproex Sodium (Depakote Sprinkles) 125 mg DAILY PO 09/04/21 09:00 09/05/21 07:47 Divalproex Sodium (Depakote Sprinkles) 125 mg 1700 PO 09/04/21 17:00 09/04/21 17:05 Lorazepam (Ativan) 0.5 mg PRN Q12HR PRN PO ANXIETY / AGITATION 09/04/21 11:30 09/04/21 19:51 Prednisone (Prednisone) 40 mg DAILY PO 09/05/21 09:00 09/07/21 13:00 09/05/21 07:47 I have reviewed the current psychotropics carefully including drug interactions. Risk benefit ratio favors no change other than as noted in my dictated progress note. Diagnosis: Problems: (1) Impulse control disorder, unspecified (2) Anxiety disorder, unspecified (3) Dementia, vascular, with depression (4) Dementia, vascular, with delusions (5) Dementia in Alzheimer's disease with depression (6) Dementia in Alzheimer's disease with delusions (7) Dementia of the Alzheimer's type with early onset with behavioral disturbance (8) Major neurocognitive disorder CHERRIE LIVE MD Sep 05, 2021 08:23
[2021-09-05] MEDS ORDERED: predniSONE 20 MG TABLET PO SCH (09:00)
[2021-09-05 10:00] VITALS: BP 129/66
--- NOTE | 2021-09-05 11:51 | NUR ---
Discharge Note: NEFTALI YUAN Discharge instructions and discharge home medications reviewed with SOHA Spencer on [facility] and a copy given. All questions have been answered and understanding verbalized. Discontinued lines and drains: IV discontinued by nursing staff with no reported complications. Patient discharged to [facility] with all belongings via w/c accompanied by hospital staff.
--- NOTE | 2021-09-05 12:15 | DS ---
DATE OF DISCHARGE: 09/05/2021 ATTENDING PHYSICIAN: Dr. Smith. FINAL DISCHARGE DIAGNOSES: 1. COVID pneumonia. 2. Chronic obstructive pulmonary disease. 3. Underlying dementia. 4. Chronic hypoxemia. 5. Agitation and behavioral issues. HISTORY AND PHYSICAL: The patient is a 71-year-old gentleman with underlying COPD. He tested positive for COVID-19. He had chest x-ray evidence of infiltrate in bases consistent with pneumonia. He was admitted to the medical floor. PHYSICAL EXAMINATION: Please see the dictated note. PERTINENT LABORATORY AND X-RAY STUDIES: On the database. COURSE IN THE HOSPITAL: The patient was treated with 8 days of intravenous antibiotics and steroids, this was tapered off. He tested negative. He did well. [facility]. He remains a DNR per advanced directive. On the 9th hospital day, arrangements were made for him to go back upstairs. DISCHARGE MEDICATIONS: His discharge meds include the following: He will continue his scheduled Tylenol, acetaminophen, lactobacillus, lorazepam, Remeron, Zyprexa, prednisone 40 mg daily for 3 more days, then taper, Seroquel and Zoloft doses unchanged. He is a DNR per advanced directive. He was discharged in stable condition with explicit drug and followup care. AUDREY/SHE/TRACY DR: AUDREY/calderon TID: [id number] CC: CHERRIE LIVE MD
[2021-09-08] MEDS ORDERED: predniSONE 20 MG TABLET PO SCH (09:00)
[2021-09-11] MEDS ORDERED: predniSONE 20 MG TABLET PO SCH (09:00)
[2021-09-14] MEDS ORDERED: predniSONE 10 MG TABLET. PO SCH (09:00)
== END 2021-09-05 11:48 | DRG 177 ==
LOC: 1 SOUTH 11:05 → LND 08-28 14:15
PROVIDERS: ADMIT Hospitalist; ATTEND Hospitalist
PROC: 5A0935A Assistance with Respiratory Ventilation, Less than 24 Consecutive Hours, High Flow/Velocity Cannula (ICD-10-PCS; principal; 2021-08-26)
DX: U07.1 COVID-19 (principal); J12.82 Pneumonia due to coronavirus disease 2019; F02.81 Dementia in other diseases classified elsewhere, unspecified severity, with behavioral disturbance; J44.0 Chronic obstructive pulmonary disease with (acute) lower respiratory infection; J96.11 Chronic respiratory failure with hypoxia; F01.50 Vascular dementia, unspecified severity, without behavioral disturbance, psychotic disturbance, mood disturbance, and anxiety; F32.A Depression, unspecified; F41.9 Anxiety disorder, unspecified; F63.9 Impulse disorder, unspecified; G30.9 Alzheimer's disease, unspecified; G93.89 Other specified disorders of brain; M19.90 Unspecified osteoarthritis, unspecified site; N40.0 Benign prostatic hyperplasia without lower urinary tract symptoms; Z66 Do not resuscitate; Z91.81 History of falling
CPT/HCPCS: 36415; 71045; 80053; 85007; 85025; J0456; J0696; J1650; J2060; J2920; J7050; J7512

== ENCOUNTER 2021-09-05 10:54 | Inpatient (IN) | payer MEDICARE ==
[~2021-09-05] VITALS: Ht 167.6 cm; Wt 51.2 kg
[~2021-09-05 10:54] MED LIST changes: +ACET325T21 PO; +ACET325T9 PO; +ACET650S11 RC; +DIVA125C2 PO; +LACT1CAP21 PO; +LORA-254 PO; +MAG-124 PO; +MAGN24003 PO; +METH1ADH TP; +MIRT-37 PO; +OLAN5TAB99 PO; +PRED-220 PO; +PRED20TA PO; +QUET25TA5 PO; +SERT50TA PO; +[UNRECOGNIZED DRUG - CODE] PO
[2021-09-05] MEDS ORDERED: QUEtiapine 25 MG TABLET. PO PRN (13:15)
[2021-09-05] MEDS ORDERED: ACETAMINOPHEN 325 MG TABLET PO PRN (13:15)
[2021-09-05 13:23] VITALS: BP 118/71
[2021-09-05] MEDS ORDERED: METHYL SALICYLATE/MENTHOL TOPICAL OINTMENT 57GM TUBE. TP PRN (13:30)
[2021-09-05] MEDS ORDERED: MAG HYDROX/AL HYDROX/SIMETH 30 ML ORAL.SUSP PO PRN (13:30)
[2021-09-05] MEDS ORDERED: MAGNESIUM HYDROXIDE 2,400 MG/30 ML ORAL.SUSP. PO PRN (13:30)
[2021-09-05] MEDS ORDERED: LORazepam 0.5 MG TABLET PO PRN (13:30)
[2021-09-05 15:42] LABS: BASO % 0 % (0-3); EOS % 0 % (0-3); HEMATOCRIT 47.6 % (39.0-53.0); HEMOGLOBIN 15.8 g/dL (13.0-17.5); LYMPH # 0.9 x10^3/uL (1.0-4.8); LYMPH % 4 % (24-48); MEAN CORPUSCULAR HEMOGLOBIN 31 pg (25-35); MEAN CORPUSCULAR HGB CONC 33 g/dL (31-37); MEAN CORPUSCULAR VOLUME 92 fL (79-100); MONO # 0.7 x10^3/uL (0.0-1.1); MONO % 3 % (0-9); NEUT # 20.3 x10^3uL (1.8-7.7); NEUT % 93 % (31-73); PLATELET COUNT 567 x10^3/uL (140-400); RED BLOOD COUNT 5.18 x10^6/uL (4.30-5.70); RED CELL DISTRIBUTION WIDTH 13.5 % (11.5-14.5); WHITE BLOOD COUNT 21.9 x10^3/uL (4.0-11.0)
[2021-09-05 15:47] VITALS: BP 89/62
[2021-09-05 16:04] LABS: ALBUMIN 2.9 g/dL (3.4-5.0); ALBUMIN/GLOBULIN RATIO 0.6 (1.0-1.7); ALK PHOS 75 U/L (46-116); ALT (SGPT) 48 U/L (16-63); ANION GAP 15 (6-14); AST (SGOT) 39 U/L (15-37); BLOOD UREA NITROGEN 61 mg/dL (8-26); BUN/CREATININE RATIO 36 (6-20); CALCIUM 9.6 mg/dL (8.5-10.1); CARBON DIOXIDE 21 mmol/L (21-32); CHLORIDE 113 mmol/L (98-107); CREATININE 1.7 mg/dL (0.7-1.3); GFR 39.9; GLUCOSE 140 mg/dL (70-99); MAGNESIUM 2.9 mg/dL (1.8-2.4); POTASSIUM 4.4 mmol/L (3.5-5.1); SODIUM 149 mmol/L (136-145); TOTAL BILIRUBIN 0.7 mg/dL (0.2-1.0); TOTAL PROTEIN 8.1 g/dL (6.4-8.2)
[2021-09-05 16:32] LABS: VAL ACID 14 mcg/mL (50-100)
[2021-09-05] MEDS: DIVALPROEX 125 MG CAP.SPRINK PO SCH (16:47)
[2021-09-05] MEDS: QUEtiapine 25 MG TABLET. PO SCH (16:47)
[2021-09-05 16:59] LABS: % BANDS 2 % (0-9); % LYMPHS 3 % (24-48); % MONOS 2 % (0-10); % SEGS 93 % (35-66); PLT ESTIMATE INCREASED (ADEQUATE)
[2021-09-05 17:00] VITALS: BP 106/70
[2021-09-05] MEDS ORDERED: ACETAMINOPHEN 650 MG SUPP.RECT. RC PRN (18:45)
--- NOTE | 2021-09-05 20:01 | RAD ---
EXAMINATION: Chest radiograph. VIEWS: 1 COMPARISON: 08/30/2021 INDICATION:71 years, Male, diminished lung sounds, recent Covid pneumonia. FINDINGS: Normal cardiomediastinal silhouette. Slightly worsening diffuse bilateral pulmonary infiltrates, part icularly in the left lung. No pleural effusion or pneumothorax. No acute osseous process. IMPRESSION: Slightly worsening diffuse bilateral pulmonary infiltrates, particularly in the left lung. Electronically signed by: Medardo Kurtz MD (09/05/2021 7:59 PM) [facility]
[2021-09-05] MEDS: LACTOBACILLUS RHAMNOSUS GG 1 CAPSULE. PO SCH (20:24)
[2021-09-05] MEDS: MIRTAZAPINE 7.5 MG TABLET. PO SCH (20:24)
[2021-09-05] MEDS: guaiFENesin 300 MG/15 ML LIQUID PO SCH (20:24)
--- NOTE | 2021-09-05 21:32 | PDOC ---
Exam Note: William Note: Please also refer to the separate dictated note~for this date of service dictated separately.~Patient seen individually. Discussed the patient with Nursing staff reviewed the chart.~Reviewed interim history and current functioning. Reviewed vital signs,~Labs/ Radiology~and current medications noted below. Continue current treatment with the changes noted in the dictated addendum note Assessment: Vital Signs/I&O: Vital Signs Date Time Temp Pulse Resp B/P (MAP) Pulse Ox O2 Delivery O2 Flow Rate FiO2 09/05/21 17:00 100 106/70 (82) 09/05/21 15:47 98.4 22 92 Labs: Laboratory Tests Test 09/05/21 14:59 White Blood Count 21.9 x10^3/uL (4.0-11.0) H Red Blood Count 5.18 x10^6/uL (4.30-5.70) Hemoglobin 15.8 g/dL (13.0-17.5) Hematocrit 47.6 % (39.0-53.0) Mean Corpuscular Volume 92 fL (79-100) Mean Corpuscular Hemoglobin 31 pg (25-35) Mean Corpuscular Hemoglobin Concent 33 g/dL (31-37) Red Cell Distribution Width 13.5 % (11.5-14.5) Platelet Count 567 x10^3/uL (140-400) H Neutrophils (%) (Auto) 93 % (31-73) H Lymphocytes (%) (Auto) 4 % (24-48) L Monocytes (%) (Auto) 3 % (0-9) Eosinophils (%) (Auto) 0 % (0-3) Basophils (%) (Auto) 0 % (0-3) Neutrophils # (Auto) 20.3 x10^3uL (1.8-7.7) H Lymphocytes # (Auto) 0.9 x10^3/uL (1.0-4.8) L Monocytes # (Auto) 0.7 x10^3/uL (0.0-1.1) Eosinophils # (Auto) 0.0 x10^3/uL (0.0-0.7) Basophils # (Auto) 0.0 x10^3/uL (0.0-0.2) Segmented Neutrophils % 93 % (35-66) H Band Neutrophils % 2 % (0-9) Lymphocytes % 3 % (24-48) L Monocytes % 2 % (0-10) Platelet Estimate Increased (ADEQUATE) Sodium Level 149 mmol/L (136-145) H Potassium Level 4.4 mmol/L (3.5-5.1) Chloride Level 113 mmol/L (98-107) H Carbon Dioxide Level 21 mmol/L (21-32) Anion Gap 15 (6-14) H Blood Urea Nitrogen 61 mg/dL (8-26) H Creatinine 1.7 mg/dL (0.7-1.3) H Estimated GFR (Cockcroft-Gault) 39.9 BUN/Creatinine Ratio 36 (6-20) H Glucose Level 140 mg/dL (70-99) H Calcium Level 9.6 mg/dL (8.5-10.1) Magnesium Level 2.9 mg/dL (1.8-2.4) H Total Bilirubin 0.7 mg/dL (0.2-1.0) Aspartate Amino Transferase (AST) 39 U/L (15-37) H Alanine Aminotransferase (ALT) 48 U/L (16-63) Alkaline Phosphatase 75 U/L (46-116) Total Protein 8.1 g/dL (6.4-8.2) Albumin 2.9 g/dL (3.4-5.0) L Albumin/Globulin Ratio 0.6 (1.0-1.7) L Valproic Acid Level 14 mcg/mL (50-100) L Valproic Acid Last Dose Date 09/05/2021 Valproic Acid Last Dose Time 0900 Current Medications: Meds: Current Medications Medications (Trade) Dose Ordered Sig/Fabi Route PRN Reason Start Time Stop Time Status Last Admin Dose Admin Divalproex Sodium (Depakote Sprinkles) 125 mg 0900,1700 PO 09/05/21 17:00 09/05/21 16:47 Guaifenesin (Robitussin) 600 mg BID PO 09/05/21 21:00 09/05/21 20:24 Mirtazapine (Remeron) 7.5 mg QHS PO 09/05/21 21:00 09/05/21 20:24 Quetiapine Fumarate (SEROquel) 25 mg 0900,1700 PO 09/05/21 17:00 09/05/21 16:47 Lactobacillus Rhamnosus (Culturelle) 1 cap BID PO 09/05/21 21:00 09/05/21 20:24 I have reviewed the current psychotropics carefully including drug interactions. Risk benefit ratio favors no change other than as noted in my dictated progress note. Diagnosis: Problems: (1) Impulse control disorder, unspecified (2) Anxiety disorder, unspecified (3) Dementia, vascular, with depression (4) Dementia, vascular, with delusions (5) Dementia in Alzheimer's disease with depression (6) Dementia in Alzheimer's disease with delusions (7) Dementia of the Alzheimer's type with early onset with behavioral disturbance (8) Major neurocognitive disorder CHERRIE LIVE MD Sep 05, 2021 21:32
[2021-09-06 05:42] VITALS: BP 130/78
[2021-09-06] MEDS: DIVALPROEX 125 MG CAP.SPRINK PO SCH ×2 (07:54→17:13)
[2021-09-06] MEDS: guaiFENesin 300 MG/15 ML LIQUID PO SCH ×2 (07:55→19:53)
[2021-09-06] MEDS: predniSONE 10 MG TABLET. PO SCH (07:55)
[2021-09-06] MEDS: LACTOBACILLUS RHAMNOSUS GG 1 CAPSULE. PO SCH ×2 (07:55→19:53)
[2021-09-06] MEDS: QUEtiapine 25 MG TABLET. PO SCH ×3 (07:55→17:13)
[2021-09-06] MEDS: SERTRALINE 50 MG TABLET. PO SCH (07:55)
[2021-09-06 16:12] VITALS: BP 121/73
[2021-09-06] MEDS: MIRTAZAPINE 7.5 MG TABLET. PO SCH (19:53)
--- NOTE | 2021-09-06 21:52 | PDOC ---
Exam Note: William Note: Please also refer to the separate dictated note~for this date of service dictated separately.~Patient seen individually. Discussed the patient with Nursing staff reviewed the chart.~Reviewed interim history and current functioning. Reviewed vital signs,~Labs/ Radiology~and current medications noted below. Continue current treatment with the changes noted in the dictated addendum note Assessment: Vital Signs/I&O: Vital Signs Date Time Temp Pulse Resp B/P (MAP) Pulse Ox O2 Delivery O2 Flow Rate FiO2 09/06/21 16:12 97.5 92 16 121/73 (89) 94 Room Air I & O 09/05/21 09/05/21 09/06/21 15:00 23:00 07:00 Intake Total 600 ml Balance 600 ml Current Medications: Meds: Current Medications Medications (Trade) Dose Ordered Sig/Fabi Route PRN Reason Start Time Stop Time Status Last Admin Dose Admin Acetaminophen (Tylenol) 650 mg PRN Q6HRS PRN PO PAIN 09/05/21 13:15 Divalproex Sodium (Depakote Sprinkles) 125 mg 0900,1700 PO 09/05/21 17:00 09/06/21 14:25 DC 09/06/21 07:54 Guaifenesin (Robitussin) 600 mg BID PO 09/05/21 21:00 09/06/21 19:53 Lorazepam (Ativan) 0.5 mg PRN BID PRN PO ANXIETY / AGITATION 09/05/21 13:30 09/06/21 12:07 Mirtazapine (Remeron) 7.5 mg QHS PO 09/05/21 21:00 09/06/21 19:53 Olanzapine (ZyPREXA ZYDIS) 2.5 mg PRN Q2HR PRN PO PSYCHOSIS 09/05/21 13:15 Prednisone (Prednisone) 40 mg Taper DAILY PO 09/06/21 09:00 09/17/21 08:59 09/06/21 07:55 Quetiapine Fumarate (SEROquel) 12.5 mg DAILY@1300 PO 09/06/21 13:00 09/06/21 12:07 Quetiapine Fumarate (SEROquel) 25 mg 0900,1700 PO 09/05/21 17:00 09/06/21 17:13 Quetiapine Fumarate (SEROquel) 25 mg PRN QHS PRN PO PSYCHOSIS 09/05/21 13:15 Sertraline HCl (Zoloft) 50 mg DAILY PO 09/06/21 09:00 09/06/21 07:55 Lactobacillus Rhamnosus (Culturelle) 1 cap BID PO 09/05/21 21:00 09/06/21 19:53 Prednisone (Prednisone) 30 mg DAILY PO 09/08/21 09:00 09/05/21 13:47 DC Prednisone (Prednisone) 20 mg DAILY PO 09/11/21 09:00 09/05/21 13:47 DC Prednisone (Prednisone) 10 mg DAILY PO 09/14/21 09:00 09/05/21 13:47 DC Multi-Ingredient Ointment (Analgesic [place]) 1 luciano PRN QID PRN TP MUSCLE PAIN 09/05/21 13:30 Al Hydroxide/Mg Hydroxide (Mylanta Plus Xs) 15 ml PRN AFTMEALHC PRN PO DYSPEPSIA 09/05/21 13:30 Magnesium Hydroxide (Milk Of Magnesia) 2,400 mg PRN QHS PRN PO CONSTIPATION 09/05/21 13:30 Acetaminophen (Tylenol Supp) 650 mg PRN Q6HRS PRN RC FEVER > 100.3'F 09/05/21 18:45 Divalproex Sodium (Depakote Sprinkles) 250 mg 0900,1700 PO 09/06/21 17:00 09/06/21 17:13 Current Medications Medications (Trade) Dose Ordered Sig/Fabi Route PRN Reason Start Time Stop Time Status Last Admin Dose Admin Prednisone (Prednisone) 40 mg Taper DAILY PO 09/06/21 09:00 09/17/21 08:59 09/06/21 07:55 Quetiapine Fumarate (SEROquel) 12.5 mg DAILY@1300 PO 09/06/21 13:00 09/06/21 12:07 Sertraline HCl (Zoloft) 50 mg DAILY PO 09/06/21 09:00 09/06/21 07:55 Divalproex Sodium (Depakote Sprinkles) 250 mg 0900,1700 PO 09/06/21 17:00 09/06/21 17:13 I have reviewed the current psychotropics carefully including drug interactions. Risk benefit ratio favors no change other than as noted in my dictated progress note. Diagnosis: Problems: (1) Impulse control disorder, unspecified (2) Anxiety disorder, unspecified (3) Dementia, vascular, with depression (4) Dementia, vascular, with delusions (5) Dementia in Alzheimer's disease with depression (6) Dementia in Alzheimer's disease with delusions (7) Dementia of the Alzheimer's type with early onset with behavioral disturbance (8) Major neurocognitive disorder CHERRIE LIVE MD Sep 06, 2021 21:52
--- NOTE | 2021-09-06 23:05 | HP ---
DATE OF SERVICE: 09/06/2021 ADMIT DATE: 09/05/2021 PSYCHIATRIC ADMISSION HISTORY/EVALUATION This is a late entry, date of service 09/05/2021, covers elements not covered in my initial note 09/05/2021. IDENTIFYING DATA: The patient is a 71-year-old male who returns back to us from the medical surgical floor after completing his COVID-19 positive status quarantine. He was initially admitted to us from home with worsening dementia, psychosis, agitation, unmanageable behaviors. He was being stabilized, then developed COVID-19 positive status, and transition to medical surgical floor before returning to us because he continued to be confused, disorganized, agitated, aggressive, disruptive, intrusive, and unmanageable. CHIEF COMPLAINT: "No." HISTORY OF PRESENT ILLNESS: The patient has a history of dementia, Alzheimer's, vascular type. He had been residing at home with his family, but recently more unmanageable. He has had some sleep and appetite changes, worsening agitation and aggression, disruptive behaviors. No active suicidal or homicidal ideation. PAST PSYCHIATRIC HISTORY: As above. MEDICAL HISTORY: Code status: DNR. Positive for enlarged prostate, hypertension. ACCU-CHEKS: None. DRUG ALLERGIES: Negative. DIET: Regular. Wasta thick. Meds are crushed. Ambulates ad tom and is incontinent. CURRENT PSYCHOTROPICS: Seroquel 12.5 mg 3 times a day, 25 mg at bedtime p.r.n., Remeron 7.5 mg at bedtime, Zoloft 50 mg a day, Ativan p.r.n., Zyprexa p.r.n., Depakote 125 mg b.i.d. FAMILY HISTORY: Noncontributory. SOCIAL HISTORY: No alcohol, drug abuse, physical, sexual, or elder abuse. He is not known to be a perpetrator. REACTION TO HOSPITALIZATION: The patient oblivious of this. REVIEW OF SYSTEMS: No CV, , pulmonary, eye, ENT system symptoms on review. Reliability poor. MENTAL STATUS EXAM: Oriented to himself. Insight, judgment, recent and remote memory, attention, concentration, fund of knowledge poor consistent with his diagnosis. IMPRESSION: Major neurocognitive disorder, Alzheimer, vascular with delusion, depression, behavioral disturbance, anxiety disorder, unspecified; impulse control disorder, unspecified. Rest as above. PLAN: Admit to Geropsychiatry unit at [facility]. I will see the patient daily individually from a psychiatric standpoint, medical followup, Dr. Bruner/Dr. Smith. Continue the patient on his current psychotropics. May consider increasing Depakote if agitation, mood lability persists. Adjust further as clinically indicated. ESTIMATED LENGTH OF STAY: 10-12 days. DISPOSITION PLANS: The patient will need placement in a senior living post-discharge. SIDDHARTHA DR: Cynthia TID: [id number]
[2021-09-07 05:50] VITALS: BP 99/63
[2021-09-07] MEDS: LACTOBACILLUS RHAMNOSUS GG 1 CAPSULE. PO SCH ×2 (07:44→19:14)
[2021-09-07] MEDS: predniSONE 10 MG TABLET. PO SCH (07:44)
[2021-09-07] MEDS: DIVALPROEX 125 MG CAP.SPRINK PO SCH ×3 (07:44→19:15)
[2021-09-07] MEDS: SERTRALINE 50 MG TABLET. PO SCH (07:45)
[2021-09-07] MEDS: QUEtiapine 25 MG TABLET. PO SCH ×3 (07:45→17:13)
[2021-09-07] MEDS: guaiFENesin 300 MG/15 ML LIQUID PO SCH ×2 (07:45→19:16)
--- NOTE | 2021-09-07 08:01 | PDOC ---
Exam Note: William Note: This note is a late entry for 09/06/2021 covers elements not covered in my initial note. Subjective: The patient was reviewed on telehealth rounds at treatment team meeting on 09/06/2021 with Mireya Ramos, Camila Cuba, and Yasmine Geronimo (older adult social work specialist), Pina Paredes (Motion Picture Film Examiner), Katarzyna, activity therapy, and Ramona HOYOS, discussed and reviewed the chart. The patient slept 4-1/2 hours previous night. He remains confused, anxious, restless, has difficulty recognising how to eat, has to be fed though he is able to tell his name. He has lost about 18 pounds, weighed since admission and we will have him assessed for possible hospice care. Previous evening he was hallucinating, combative, wandering into other patients rooms. He has attended 2 groups in the past one week. Review of Systems: Ambulation impaired. No CV, , eye, ENT system symptoms on review. Reliability poor. Mental Status Exam: The patient is oriented to himself. Insight and judgment, recent and remote memory, attention and concentration, fund of knowledge is poor consistent with his diagnoses. Laboratory Data: Reviewed. Impression: Major neurocognitive disorder, Alzheimer, vascular with delusion, depression behavioral disturbance. Anxiety disorder unspecified. Impulse control disorder unspecified. Plan: Continue current psychotropics. Assessment: Vital Signs/I&O: Vital Signs Date Time Temp Pulse Resp B/P (MAP) Pulse Ox O2 Delivery O2 Flow Rate FiO2 09/07/21 05:50 97.6 101 18 99/63 (75) 94 09/06/21 16:12 Room Air I & O 09/06/21 09/06/21 09/07/21 15:00 23:00 07:00 Intake Total 600 ml 240 ml Balance 600 ml 240 ml Current Medications: Meds: Current Medications Medications (Trade) Dose Ordered Sig/Fabi Route PRN Reason Start Time Stop Time Status Last Admin Dose Admin Acetaminophen (Tylenol) 650 mg PRN Q6HRS PRN PO PAIN 09/05/21 13:15 Divalproex Sodium (Depakote Sprinkles) 125 mg 0900,1700 PO 09/05/21 17:00 09/06/21 14:25 DC 09/06/21 07:54 Guaifenesin (Robitussin) 600 mg BID PO 09/05/21 21:00 09/07/21 07:45 Lorazepam (Ativan) 0.5 mg PRN BID PRN PO ANXIETY / AGITATION 09/05/21 13:30 09/06/21 12:07 Mirtazapine (Remeron) 7.5 mg QHS PO 09/05/21 21:00 09/06/21 19:53 Olanzapine (ZyPREXA ZYDIS) 2.5 mg PRN Q2HR PRN PO PSYCHOSIS 09/05/21 13:15 Prednisone (Prednisone) 40 mg Taper DAILY PO 09/06/21 09:00 09/17/21 08:59 09/07/21 07:44 Quetiapine Fumarate (SEROquel) 12.5 mg DAILY@1300 PO 09/06/21 13:00 09/06/21 12:07 Quetiapine Fumarate (SEROquel) 25 mg 0900,1700 PO 09/05/21 17:00 09/07/21 07:45 Quetiapine Fumarate (SEROquel) 25 mg PRN QHS PRN PO PSYCHOSIS 09/05/21 13:15 Sertraline HCl (Zoloft) 50 mg DAILY PO 09/06/21 09:00 09/07/21 07:45 Lactobacillus Rhamnosus (Culturelle) 1 cap BID PO 09/05/21 21:00 09/07/21 07:44 Prednisone (Prednisone) 30 mg DAILY PO 09/08/21 09:00 09/05/21 13:47 DC Prednisone (Prednisone) 20 mg DAILY PO 09/11/21 09:00 09/05/21 13:47 DC Prednisone (Prednisone) 10 mg DAILY PO 09/14/21 09:00 09/05/21 13:47 DC Multi-Ingredient Ointment (Analgesic [place]) 1 luciano PRN QID PRN TP MUSCLE PAIN 09/05/21 13:30 Al Hydroxide/Mg Hydroxide (Mylanta Plus Xs) 15 ml PRN AFTMEALHC PRN PO DYSPEPSIA 09/05/21 13:30 Magnesium Hydroxide (Milk Of Magnesia) 2,400 mg PRN QHS PRN PO CONSTIPATION 09/05/21 13:30 Acetaminophen (Tylenol Supp) 650 mg PRN Q6HRS PRN RC FEVER > 100.3'F 09/05/21 18:45 Divalproex Sodium (Depakote Sprinkles) 250 mg 0900,1700 PO 09/06/21 17:00 09/07/21 07:44 Current Medications Medications (Trade) Dose Ordered Sig/Fabi Route PRN Reason Start Time Stop Time Status Last Admin Dose Admin Prednisone (Prednisone) 40 mg Taper DAILY PO 09/06/21 09:00 09/17/21 08:59 09/07/21 07:44 Quetiapine Fumarate (SEROquel) 12.5 mg DAILY@1300 PO 09/06/21 13:00 09/06/21 12:07 Sertraline HCl (Zoloft) 50 mg DAILY PO 09/06/21 09:00 09/07/21 07:45 Divalproex Sodium (Depakote Sprinkles) 250 mg 0900,1700 PO 09/06/21 17:00 09/07/21 07:44 I have reviewed the current psychotropics carefully including drug interactions. Risk benefit ratio favors no change other than as noted in my dictated progress note. Diagnosis: Problems: (1) Impulse control disorder, unspecified (2) Anxiety disorder, unspecified (3) Dementia, vascular, with depression (4) Dementia, vascular, with delusions (5) Dementia in Alzheimer's disease with depression (6) Dementia in Alzheimer's disease with delusions (7) Dementia of the Alzheimer's type with early onset with behavioral disturbance (8) Major neurocognitive disorder CHERRIE LIVE MD Sep 07, 2021 08:00
[2021-09-07 08:30] VITALS: BP 117/82
[2021-09-07 14:43] VITALS: BP 138/70
[2021-09-07] MEDS: MIRTAZAPINE 7.5 MG TABLET. PO SCH (19:14)
--- NOTE | 2021-09-07 21:42 | PDOC ---
Exam Note: William Note: Please also refer to the separate dictated note~for this date of service dictated separately.~Patient seen individually. Discussed the patient with Nursing staff reviewed the chart.~Reviewed interim history and current functioning. Reviewed vital signs,~Labs/ Radiology~and current medications noted below. Continue current treatment with the changes noted in the dictated addendum note Assessment: Vital Signs/I&O: Vital Signs Date Time Temp Pulse Resp B/P (MAP) Pulse Ox O2 Delivery O2 Flow Rate FiO2 09/07/21 14:43 97.6 84 18 138/70 (92) 90 Room Air I & O 09/06/21 09/06/21 09/07/21 15:00 23:00 07:00 Intake Total 600 ml 240 ml Balance 600 ml 240 ml Current Medications: Meds: Current Medications Medications (Trade) Dose Ordered Sig/Fabi Route PRN Reason Start Time Stop Time Status Last Admin Dose Admin Acetaminophen (Tylenol) 650 mg PRN Q6HRS PRN PO PAIN 09/05/21 13:15 Divalproex Sodium (Depakote Sprinkles) 125 mg 0900,1700 PO 09/05/21 17:00 09/06/21 14:25 DC 09/06/21 07:54 Guaifenesin (Robitussin) 600 mg BID PO 09/05/21 21:00 09/07/21 19:16 Lorazepam (Ativan) 0.5 mg PRN BID PRN PO ANXIETY / AGITATION 09/05/21 13:30 09/06/21 12:07 Mirtazapine (Remeron) 7.5 mg QHS PO 09/05/21 21:00 09/07/21 19:14 Olanzapine (ZyPREXA ZYDIS) 2.5 mg PRN Q2HR PRN PO PSYCHOSIS 09/05/21 13:15 09/07/21 19:14 Prednisone (Prednisone) 40 mg Taper DAILY PO 09/06/21 09:00 09/17/21 08:59 09/07/21 07:44 Quetiapine Fumarate (SEROquel) 12.5 mg DAILY@1300 PO 09/06/21 13:00 09/07/21 14:41 Quetiapine Fumarate (SEROquel) 25 mg 0900,1700 PO 09/05/21 17:00 09/07/21 17:13 Quetiapine Fumarate (SEROquel) 25 mg PRN QHS PRN PO PSYCHOSIS 09/05/21 13:15 Sertraline HCl (Zoloft) 50 mg DAILY PO 09/06/21 09:00 09/07/21 07:45 Lactobacillus Rhamnosus (Culturelle) 1 cap BID PO 09/05/21 21:00 09/07/21 19:14 Prednisone (Prednisone) 30 mg DAILY PO 09/08/21 09:00 09/05/21 13:47 DC Prednisone (Prednisone) 20 mg DAILY PO 09/11/21 09:00 09/05/21 13:47 DC Prednisone (Prednisone) 10 mg DAILY PO 09/14/21 09:00 09/05/21 13:47 DC Multi-Ingredient Ointment (Analgesic [place]) 1 luciano PRN QID PRN TP MUSCLE PAIN 09/05/21 13:30 Al Hydroxide/Mg Hydroxide (Mylanta Plus Xs) 15 ml PRN AFTMEALHC PRN PO DYSPEPSIA 09/05/21 13:30 Magnesium Hydroxide (Milk Of Magnesia) 2,400 mg PRN QHS PRN PO CONSTIPATION 09/05/21 13:30 Acetaminophen (Tylenol Supp) 650 mg PRN Q6HRS PRN RC FEVER > 100.3'F 09/05/21 18:45 Divalproex Sodium (Depakote Sprinkles) 250 mg 0900,1700 PO 09/06/21 17:00 09/07/21 19:15 I have reviewed the current psychotropics carefully including drug interactions. Risk benefit ratio favors no change other than as noted in my dictated progress note. Diagnosis: Problems: (1) Impulse control disorder, unspecified (2) Anxiety disorder, unspecified (3) Dementia, vascular, with depression (4) Dementia, vascular, with delusions (5) Dementia in Alzheimer's disease with depression (6) Dementia in Alzheimer's disease with delusions (7) Dementia of the Alzheimer's type with early onset with behavioral disturbance (8) Major neurocognitive disorder CHERRIE LIVE MD Sep 07, 2021 21:42
[2021-09-08 06:10] VITALS: BP 124/81
[2021-09-08] MEDS: LACTOBACILLUS RHAMNOSUS GG 1 CAPSULE. PO SCH ×3 (07:40→21:00)
[2021-09-08] MEDS: SERTRALINE 50 MG TABLET. PO SCH (07:40)
[2021-09-08] MEDS: predniSONE 10 MG TABLET. PO SCH (07:40)
[2021-09-08] MEDS: QUEtiapine 25 MG TABLET. PO SCH ×3 (07:40→16:54)
[2021-09-08] MEDS: guaiFENesin 300 MG/15 ML LIQUID PO SCH ×3 (07:41→21:00)
[2021-09-08] MEDS ORDERED: DIVALPROEX 125 MG CAP.SPRINK PO ONE (09:00)
[2021-09-08] MEDS ORDERED: predniSONE 20 MG TABLET PO SCH (09:00)
[2021-09-08 15:31] VITALS: BP 127/91
[2021-09-08] MEDS: DIVALPROEX 125 MG CAP.SPRINK PO SCH (16:51)
[2021-09-08] MEDS: MIRTAZAPINE 7.5 MG TABLET. PO SCH ×2 (19:23→21:00)
--- NOTE | 2021-09-08 20:45 | PN ---
DATE: 09/08/2021 SUBJECTIVE: The patient was seen today, met with the staff, chart reviewed, also covering for Dr. Zhang. The patient currently in Broda chair for his safety and has been with very unsteady gait. The patient continues to decline in his health and he lost about 18 pounds in the last 2 weeks. The patient is refusing to eat and also with decreased appetite. The patient is also having some myoclonic jerks. The patient also shows decreased psychomotor activity, mostly noncommunicative. Staff have discussed looking into placing him on hospice care because of his significant decline in his overall health. OBSERVATION: VITAL SIGNS: Temperature 97.1, pulse 72, respirations 18, O2 sat 95%, blood pressure 124/81. LABORATORY DATA: The patient's lab reviewed. White cell count was 21.9 three days ago. Platelet count was 567. Sodium was 149, chloride 113, BUN 61, creatinine 1.7, glucose 140. CURRENT MEDICATIONS: Include Depakote 250 mg twice a day, Seroquel 12.5 mg daily, Zoloft 50 mg daily, mirtazapine 7.5 mg at night, and also Seroquel 25 mg twice a day. He is also on p.r.n. lorazepam, Seroquel, and olanzapine. The patient is not showing any side effects to medications. ASSESSMENT: 1. Major neurocognitive disorder, severe, with behavior problems. 2. Generalized anxiety disorder, unspecified. PLAN: The patient will continue on the current medications. We will decrease some of his antipsychotic drugs. The patient will be seen by the primary care and also consider placing him on hospice care and he may be transferred to [address] [place] [address] for further medical care. LENGTH OF STAY: Two to three days. JE DR: Jigar TID: [id number]
[2021-09-09 05:38] VITALS: BP 114/76
[2021-09-09] MEDS: SERTRALINE 50 MG TABLET. PO SCH (13:00)
[2021-09-09] MEDS: guaiFENesin 300 MG/15 ML LIQUID PO SCH ×2 (13:00→20:12)
[2021-09-09] MEDS: LACTOBACILLUS RHAMNOSUS GG 1 CAPSULE. PO SCH ×2 (13:00→20:12)
[2021-09-09] MEDS: predniSONE 10 MG TABLET. PO SCH (13:00)
[2021-09-09] MEDS ORDERED: IV NORMAL SALINE 1,000ML 1,000 ML IV ONE ×2 (13:00→16:00)
[2021-09-09] MEDS: DIVALPROEX 125 MG CAP.SPRINK PO SCH (13:00)
[2021-09-09] MEDS: QUEtiapine 25 MG TABLET. PO SCH ×2 (13:00)
[2021-09-09 16:14] VITALS: BP 88/55
--- NOTE | 2021-09-09 20:40 | PN ---
DATE: 09/09/2021 SUBJECTIVE: The patient is seen today, met with the staff. Chart was reviewed. I am also covering for Dr. Zhang. Staff reports continued decline in his level of functioning, drowsy, significant psychomotor retardation, inability to communicate and also not eating. OBSERVATION: VITAL SIGNS: Temperature 98.0, blood pressure 114/76, pulse 71, respirations 16, O2 saturation 93%. Slept about 3 hours last night. LABORATORY DATA: The patient's lab reviewed. CURRENT MEDICATIONS: The patient's medications reviewed and the patient is currently on Depakote, Seroquel, and p.r.n. lorazepam, and olanzapine. The patient's medications to be discontinued except for Zoloft to be decreased to 25 mg daily from 50 mg daily. The patient currently on prednisone taper and we will continue on that. ASSESSMENT: 1. Major neurocognitive disorder, severe, with marked psychomotor retardation. 2. Generalized anxiety disorder, unspecified. PLAN: The patient is in the process of being on hospice care and the patient is not able to go to [address] [place] [address], because of the bad situation. LENGTH OF STAY: Three days. KIZZY DR: Jigar TID: [id number]
[2021-09-10] MEDS ORDERED: IV NORMAL SALINE 1,000ML 1,000 ML IV ONE (05:45)
[2021-09-10 06:04] VITALS: BP 85/54
[2021-09-10 06:16] LABS: BASO # 0.1 x10^3/uL (0.0-0.2); BASO % 0 % (0-3); EOS % 0 % (0-3); HEMATOCRIT 48.8 % (39.0-53.0); HEMOGLOBIN 15.7 g/dL (13.0-17.5); LYMPH # 1.1 x10^3/uL (1.0-4.8); LYMPH % 4 % (24-48); MEAN CORPUSCULAR HEMOGLOBIN 30 pg (25-35); MEAN CORPUSCULAR HGB CONC 32 g/dL (31-37); MEAN CORPUSCULAR VOLUME 93 fL (79-100); MONO # 1.1 x10^3/uL (0.0-1.1); MONO % 4 % (0-9); NEUT # 27.6 x10^3uL (1.8-7.7); NEUT % 92 % (31-73); PLATELET COUNT 300 x10^3/uL (140-400); RED BLOOD COUNT 5.24 x10^6/uL (4.30-5.70); RED CELL DISTRIBUTION WIDTH 13.9 % (11.5-14.5); WHITE BLOOD COUNT 29.8 x10^3/uL (4.0-11.0)
[2021-09-10 06:31] LABS: ALBUMIN 2.6 g/dL (3.4-5.0); ALBUMIN/GLOBULIN RATIO 0.6 (1.0-1.7); ALK PHOS 76 U/L (46-116); ALT (SGPT) 67 U/L (16-63); ANION GAP 11 (6-14); AST (SGOT) 69 U/L (15-37); BLOOD UREA NITROGEN 91 mg/dL (8-26); BUN/CREATININE RATIO 38 (6-20); CARBON DIOXIDE 29 mmol/L (21-32); CHLORIDE 128 mmol/L (98-107); CREATININE 2.4 mg/dL (0.7-1.3); GFR 26.8; GLUCOSE 138 mg/dL (70-99); POTASSIUM 4.9 mmol/L (3.5-5.1); TOTAL BILIRUBIN 0.6 mg/dL (0.2-1.0); TOTAL PROTEIN 6.9 g/dL (6.4-8.2)
[2021-09-10 06:40] LABS: VAL ACID < 3 mcg/mL (50-100)
[2021-09-10 06:44] LABS: SODIUM 168 mmol/L (136-145)
[2021-09-10] MEDS ORDERED: IV DEXTROSE 5% 1,000 ML IV ONE (07:00)
[2021-09-10] MEDS: guaiFENesin 300 MG/15 ML LIQUID PO SCH (08:12)
[2021-09-10] MEDS: LACTOBACILLUS RHAMNOSUS GG 1 CAPSULE. PO SCH (08:13)
[2021-09-10] MEDS: predniSONE 10 MG TABLET. PO SCH (08:13)
[2021-09-10] MEDS ORDERED: IV DEXTROSE 5% 1,000 ML IV SCH (08:30)
[2021-09-10] MEDS ORDERED: SERTRALINE 25 MG TABLET. PO SCH (09:00)
[2021-09-10] MEDS ORDERED: [UNRECOGNIZED DRUG - CODE] IV (09:08)
[2021-09-10] MEDS ORDERED: MAG-124 PO (09:10)
[2021-09-10] MEDS ORDERED: MAGN24003 PO (09:11)
[2021-09-10] MEDS ORDERED: MAG355OR22 PO (09:12)
[2021-09-10] MEDS ORDERED: TROL86CR TP (09:13)
[2021-09-10] MEDS ORDERED: SERT25TA PO (09:14)
--- NOTE | 2021-09-10 20:28 | DS ---
DATE OF DISCHARGE: 09/10/2021 FINAL DIAGNOSES: AXIS I: 1. 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 2. Anxiety disorder, unspecified. AXIS II: None. AXIS III: Hypertension, enlarged prostate, also on DNR and recently he was positive for COVID-19, treated on . REASON FOR ADMISSION: This 71-year-old male was readmitted to the unit from med/surg floor after completing his COVID-19 positive status quarantine. The patient started declining in his health, lost about 18 pounds, not eating, also noncommunicative. The patient apparently exhibiting significant decrease in psychomotor activity. The patient was dependent on ADLs. The patient was seen by primary care and was transferred to medical floor and he will be placed on hospice care prior to placement. HISTORY OF PRESENT ILLNESS: The patient has a long history of dementia, Alzheimer's, vascular type. He was living at home with his family, but he will become unmanageable prior to his first admission here. The patient had problems with the intrusive behaviors, going into other residents' room, confused and also pacing constantly. In the last few days, the patient is not even able to stand up and walk. The patient did not have any falls. HOSPITAL COURSE: The patient continued his treatment including his medications, prednisone 10 mg daily and Zoloft was decreased to 25 mg from 50 mg. The patient's other medications all discontinued prior to transfer to medical floor. PLAN: The patient is discharged to medical floor for further observation and he has to be monitored closely and the patient will be placed on hospice care. CHRISTINE DR: Jigar TID: [id number] SHARON
[2021-09-11] MEDS ORDERED: predniSONE 20 MG TABLET PO SCH (09:00)
[2021-09-14] MEDS ORDERED: predniSONE 10 MG TABLET. PO SCH (09:00)
== END 2021-09-10 10:00 | disposition short-term general hospital (02) | DRG 57 ==
LOC: GEROPSY 11:49
PROVIDERS: ADMIT Psychiatry & Neurology Psychiatry; ATTEND Psychiatry & Neurology Psychiatry
DX: G30.9 Alzheimer's disease, unspecified (principal); F01.51 Vascular dementia, unspecified severity, with behavioral disturbance; F02.81 Dementia in other diseases classified elsewhere, unspecified severity, with behavioral disturbance; F32.A Depression, unspecified; F41.1 Generalized anxiety disorder; Z66 Do not resuscitate; F63.9 Impulse disorder, unspecified; R10.13 Epigastric pain; K59.00 Constipation, unspecified; G25.3 Myoclonus; R45.1 Restlessness and agitation; I10 Essential (primary) hypertension; N40.0 Benign prostatic hyperplasia without lower urinary tract symptoms; R26.81 Unsteadiness on feet; R40.0 Somnolence; Z86.16 Personal history of COVID-19
CPT/HCPCS: 36415; 71045; 80053; 80164; 83735; 85007; 85025; J7512; J7030

== ENCOUNTER 2021-09-10 10:01 | Inpatient (IN) | payer MEDICARE ==
[~2021-09-10] VITALS: Ht 167.6 cm; Wt 46.5 kg
--- NOTE | 2021-09-10 09:55 | NUR ---
SW contacted pt this morning and wanted to check in as nursing reported speaking to her. SW encouraged pt to come see him here as Hospice is imminent and would be concerned on whether or not pt would be able to make the drive versus having pt on hospice here. Irma has requested that SW plan to have pt transitioned to the hospice house here if at all possible. They would like to have him closer and be able to sit with him versus he pass here at the hospital.
[~2021-09-10 10:01] MED LIST changes: +MAG355OR22 PO; +SERT25TA PO; +TROL86CR TP; +[UNRECOGNIZED DRUG - CODE] IV
[2021-09-10] MEDS ORDERED: FLUMAZENIL 0.5 MG/5 ML VIAL. IV ONE (10:30)
[2021-09-10] MEDS: IV DEXTROSE 5% 1,000 ML IV SCH ×2 (10:30→20:30)
--- NOTE | 2021-09-10 10:33 | NUR ---
JOSEFINA contacted Gonzales at [facility] to discuss the referral and to receive a fax number. JOSEFINA explained that pt has declined significantly since Friday and is more than appropriate for hospice. JOSEFINA sent the referral over awaiting to hear back from [place].
--- NOTE | 2021-09-10 10:45 | HP ---
DATE OF SERVICE: 09/10/2021 ADMIT DATE: 09/10/2021 ATTENDING PHYSICIAN: Dr. Smith. CHIEF COMPLAINT: Obtundation. HISTORY OF PRESENT ILLNESS: The patient is a 71-year-old gentleman well known to us from the [facility]. He was sent down here 2 weeks ago with asymptomatic COVID exposure. He was kept on quarantine and a week ago sent back out to [facility]. Since that time, he is becoming more obtunded. He is not eating. He is not drinking. Blood work this morning showed a serum sodium 164 mEq per liter. A dextrose solution was administered. He is comatose. He may be sedated. I have ordered Romazicon and a stat arterial blood gas to rule out reversible causes such as hypernatremia and drug-induced obtundation. He is a DNR. The renal case manager from the [facility] was in the process of contacting hospice care per family. They do not want any heroics. I feel that hospice care is appropriate at this time. He is now a DNR per advanced directive. PAST MEDICAL HISTORY: Significant for advanced COPD due to heavy tobacco use, chronic respiratory failure, impulse control disorder, dementia with behavioral issues, agitation along with underlying depression. MEDICATIONS: From this admission included Tylenol, guaifenesin, lactobacillus, magnesium, prednisone and Zoloft along with 25 mg of Seroquel. ALLERGIES: He has no recorded drug allergies. SOCIAL HISTORY: Heavy smoker in the past. FAMILY HISTORY: Unobtainable. REVIEW OF SYSTEMS: Unobtainable. PHYSICAL EXAMINATION: GENERAL: When I saw him, this is an obtunded, elderly gentleman. VITAL SIGNS: Initial vital signs from the [facility] showed a blood pressure of 110 systolic. Pulse is 80. He was afebrile, oxygen saturation is adequate on 2 liters of nasal cannula. HEENT: Head is without trauma. Pupils are reactive. Sclerae nonicteric. Oropharynx clear. Mucous membranes dry with excoriations. NECK: Supple. LUNGS: Shallow respirations. CARDIOVASCULAR: Regular heart tones. No gallops. ABDOMEN: Soft. EXTREMITIES: Without edema. NEUROLOGIC FINDINGS: Obtunded. PERTINENT LABORATORY STUDIES: His serum sodium this morning is 164 mEq. The rest of the chemistry panel is still pending. ASSESSMENT: 1. A 71-year-old gentleman with obtundation. 2. Dehydration with free water deficit. 3. Advanced stage chronic obstructive pulmonary disease. 4. Recent asymptomatic COVID infection. 5. Underlying dementia. PLAN: 1. We will admit him to the medical floor in the event that he is going to in the hospital. 2. Comfort measures. 3. Hospice care. 4. Gentle IV hydration with dextrose given his sodium level. 5. We will avoid narcotics for now. 6. Stat arterial blood gas to rule out hypercarbic respiratory failure and CO2 narcosis. JASON DR: Damaris TID: [id number] CC: CHERRIE LIVE MD
[2021-09-10 10:58] LABS: BGAS PH 7.51 (7.35-7.46)
--- NOTE | 2021-09-10 12:16 | NUR ---
JOSEFINA returned call to Irma, pt , to inform her that JOSEFINA has not heard anything as of yet from [facility]. JOSEFINA will attempt to call around 1300 to see if a decision has been made. JOSEFINA will contact Irma afterwards.
--- NOTE | 2021-09-10 13:48 | NUR ---
JOSEFINA contacted Gonzales to see if they have made a decision yet. Gonzales reports that they have not. They physicians currently have the referral; he has a couple others in tow and hopes to know more within an hour as to whether or not he is appropriate to come to their hospice house.
--- NOTE | 2021-09-10 13:52 | NUR ---
JOSEFINA contacted Irma, pt , to let her know that a decision on Hospice has not been decided as of yet. JOSEFINA will try back within the hour to see if a decision has been made. 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 She is aware of pt condition and hopes to have him closer to home before his passing.
--- NOTE | 2021-09-10 15:02 | NUR ---
JOSEFINA received call from Gonzales with [facility]. They are not able to accept pt today. They admitted two Covid positive pts and that fit their quota. In the event they have one pass or something happens they can evaluate bringing pt in later this evening; however, as it stands, pt will be placed on the list for tomorrow. JOSEFINA will plan to follow up and inform all parties involved.
--- NOTE | 2021-09-10 15:27 | NUR ---
Pt too agitated and restless for full set of VS to be obtained.
--- NOTE | 2021-09-10 15:39 | NUR ---
SW contacted pt , Irma, to let her know that [facility] is not able to accept pt today and think that it more than likely would be tomorrow. SW encouraged pt to come see pt and noted that they would allow two visitors to see pt. Pt did note that her dtr was Biploar, mixed episodes and hoped that she would not make a major scene. SW will make sure to let nursing know.
[2021-09-10 19:00] VITALS: BP 138/77
--- NOTE | 2021-09-10 19:40 | NUR ---
PRN morphine given for restlessness. Family at bedside sitting quietly with pt and are pleasant and cooperative with staff.
[2021-09-10] MEDS: MORPHINE SULFATE 4 MG/ML DISP.SYRIN. IV PRN (19:44)
[2021-09-11] MEDS: MORPHINE SULFATE 4 MG/ML DISP.SYRIN. IV PRN ×4 (04:12→16:21)
[2021-09-11] MEDS: IV DEXTROSE 5% 1,000 ML IV SCH ×2 (05:43→16:30)
[2021-09-11 06:42] LABS: CALCIUM 8.2 mg/dL (8.5-10.1); CREATININE 1.8 mg/dL (0.7-1.3); GFR 37.4; POTASSIUM 4.4 mmol/L (3.5-5.1)
[2021-09-11 07:51] VITALS: BP 125/64
--- NOTE | 2021-09-11 10:19 | NUR ---
JOSEFINA received call from Gonzales with [facility] who reports that a doc to doc was completed and the [facility] physicians did not feel that pt was hospice house appropriate. However, they have requested records over the last 24 hours for review and would get back to JOSEFINA re: their final answer.
[2021-09-11 11:30] VITALS: BP 134/68
--- NOTE | 2021-09-11 11:40 | NUR ---
Nursing note: Patient continues to have a fixed glassy eyed expression. He does not respond verbally. He had a critical sodium of 162 this am, Dr Smith notified, no new orders at this time. He continues on fluids through IV. Not alert enough to eat or drinking. He breathes with his mouth open, frequent oral care and lip moisture provided. SaO2 86% on 3L per NC. SaO2 90% on 5 L per NC. Sylvester patent with dark keiko urine. Patient repositioned frequently. Patient continues to have increased restlessness after PRN Morphine or Ativan given. Family is at bedside. Will continue to monitor.
--- NOTE | 2021-09-11 12:08 | NUR ---
SW received call from Gonzales at the hospice house who reports that their physicians do not feel that pt is a Hospice House candidate. He does not have any uncontrollable symptoms that would warrant admission to the hospice house.
--- NOTE | 2021-09-11 13:12 | NUR ---
SW contacted pt , Irma, to update her on the hospice house status and his inability to not be admitted due to not having "more uncontrolled symptoms". JOSEFINA noted that we could start hospice here. Pt is adamant about getting pt closer to home. Pt mother, who is 92, would like to see him one last time if possible. She lives in [place], [place] and cannot maintain a long car drive. Pt and their children have been visiting and sitting with pt. They are thankful for the time, but would like to have him back towards [facility] with hospice care.
--- NOTE | 2021-09-11 13:21 | NUR ---
Nursing note: This nurse gave Ativan @1220 due to increase respirations and restlessness. Patient continued to maintain high respirations. This nurse gave Morphine @1308. Will continue to monitor. Family at beside.
[2021-09-11 13:30] VITALS: BP 135/56
--- NOTE | 2021-09-11 13:52 | NUR ---
Morphine mildly effective. Respirations are 24/min they were 28/min. SaO2 is 93% on 5L oxygen per NC. Skin clammy & warm to touch. Continues to be non-responsive. Family at bedside, will continue to monitor.
--- NOTE | 2021-09-11 14:38 | NUR ---
SW sent a referral to [facility] to get approval for hospice services and requested aid in finding placement for pt near the [facility] and have him transferred out [place].
--- NOTE | 2021-09-11 16:37 | NUR ---
Nursing note: Time of double verified @1630. Dr Smith notified. MTN notified by dye house supervisor. Family at bedside, ex (DPOA) on route to hospital, will verify home at arrival.
--- NOTE | 2021-09-11 19:28 | NUR ---
[facility] is aware of patient and will diamond picker the patient in about 1.5 hours.
--- NOTE | 2021-09-11 21:26 | NUR ---
Transport is here at this time to take pt to the home. took belongings with her earlier.
--- NOTE | 2021-09-12 01:30 | DS ---
DATE OF DISCHARGE: 09/11/2021 ATTENDING PHYSICIAN: Dr. Smith. DATE OF EXPIRATION: 09/11/2021 FINAL DISCHARGE DIAGNOSES AND CAUSE OF : 1. Acute on chronic respiratory failure. 2. End-stage chronic obstructive pulmonary disease. 3. Dehydration. 4. Hypernatremia. 5. Profound dementia. 6. Generalized debilitation. HISTORY AND PHYSICAL: The patient was a 71-year-old gentleman who had been in the skilled nursing. He was admitted to the senior behavioral unit. He had a positive screen for the Omicron variant of the coronavirus. He was in quarantine on our unit for a week, sent back up to the Senior Behavioral Unit, had a decline. He is a DNR per advanced directive. He was admitted back to the medical floor for comfort measures. PHYSICAL EXAMINATION: Today, see the dictated note. PERTINENT LABORATORY AND X-RAY STUDIES: Are on the database. His sodium and chloride were concomitantly high due to free water deficit. COURSE IN THE HOSPITAL: The patient was admitted. He was kept comfortable with morphine and Ativan ordered. Supplemental oxygen was maintained. We gave him gentle IV hydration with dextrose solution. Family was at the bedside. They were notified. We had arrangements for him to go to [facility] in [place]. However, before he could go there on the afternoon of the second hospital day, the patient succumbed to his illness. Family was at the bedside. He was pronounced at 1630 hours in the afternoon. Family was at the bedside and notified. I notified the nursing staff to release the body. I will also do the best ____. HAIR/ASHLEY DR: Damaris TID: [id number] CC: CHERRIE LIVE MD
--- NOTE | 2021-09-12 09:12 | PN ---
DATE: 09/11/2021 ATTENDING PHYSICIAN: Dr. Smith. SUBJECTIVE: Nonverbal. OBJECTIVE FINDINGS: VITAL SIGNS: Blood pressure this morning is 126/64, his pulse is 94 and regular. He is afebrile. Oxygen saturation 93% on 3 liters by nasal cannula. HEENT: Head is without trauma. Pupils are reactive. Sclerae nonicteric. Oropharynx clear. Dry membranes. NECK: Supple. LUNGS: Shallow respirations. CARDIOVASCULAR: Regular heart tones. ABDOMEN: Soft. EXTREMITIES: Without edema. NEUROLOGIC FINDINGS: Obtunded and comatose. LABORATORY DATA: Sodium is still 162 mEq per liter this morning. ASSESSMENT: 1. A 71 year-old gentleman with obtundation. 2. Dehydration with free water deficit. 3. Advanced stage chronic obstructive pulmonary disease. 4. Recent asymptomatic COVID-19 infection. 5. Underlying dementia. PLAN: 1. Family is at bedside keeping marin. 2. Rest per hospice. 3. Tentative plans to go to [facility] in [place], [place], this is where the family request. We cannot send him today for lack of beds. We will keep trying. AUDREY/OLVIN/ASHLEY OLIVER: AUDREY/calderon TID: [id number]
== END 2021-09-11 21:26 | DRG 189 ==
LOC: 1 SOUTH 10:01
PROVIDERS: ADMIT Hospitalist; ATTEND Hospitalist
DX: J96.20 Acute and chronic respiratory failure, unspecified whether with hypoxia or hypercapnia (principal); R40.20 Unspecified coma; F03.91 Unspecified dementia, unspecified severity, with behavioral disturbance; E87.0 Hyperosmolality and hypernatremia; E86.0 Dehydration; J44.9 Chronic obstructive pulmonary disease, unspecified; Z20.822 Contact with and (suspected) exposure to COVID-19; Z51.5 Encounter for palliative care; Z66 Do not resuscitate; Z86.16 Personal history of COVID-19; Z87.891 Personal history of nicotine dependence; F32.A Depression, unspecified
CPT/HCPCS: 36415; 36600; 80048; 82803; J2060; J2270